=== PATIENT | male | born 1945 | race Caucasian/White ===

== ENCOUNTER 2022-09-10 10:54 | Outpatient (CLI) | payer MEDICARE, OTHER, SELFPAY ==
[2022-09-10 14:29] LABS: Chloride* 106 mmol/L (96-114); Sodium* 141 mmol/L (135-149)
[2022-09-10 14:30] LABS: Potassium* 4.6 mmol/L (3.6-5.1)
[2022-09-10 14:31] LABS: Cholesterol* 192 mg/dL (90-199)
[2022-09-10 14:32] LABS: Alanine Aminotransferase* 47 U/L (4-50); Alkaline Phosphatase* 176 U/L (40-150); Aspartate Amino Transferase* 46 U/L (12-35); Bilirubin Total* 0.6 mg/dL (0.1-1.5); Blood Urea Nitrogen* 22 mg/dL (7-30); Carbon Dioxide* 27 mmol/L (20-32); Creatinine* 1.2 mg/dL (0.5-1.5); Estimated Glomerular Filt Rate 63 ml/min; Glucose* 100 mg/dL (60-115); Total Protein* 7.6 g/dL (6.0-8.3); Triglycerides* 187 mg/dL (40-149)
[2022-09-10 14:33] LABS: Calcium* 9.1 mg/dL (8.4-10.6); HDL Cholesterol* 35 mg/dL (>=40); LDL Cholesterol Calculated 120 mg/dL (<100)
== END 2022-09-10 10:55 | disposition home or self-care (01) ==
PROVIDERS: PCP Internal Medicine; Visit Provider Internal Medicine
DX: I10 Essential (primary) hypertension (principal); Z12.5 Encounter for screening for malignant neoplasm of prostate; Z13.6 Encounter for screening for cardiovascular disorders
CPT/HCPCS: 80053; 80061; 84153

== ENCOUNTER 2022-12-23 15:14 | Outpatient (CLI) | payer MEDICARE, OTHER, SELFPAY | END 2022-12-23 15:15 | disposition home or self-care (01) | PROVIDERS: PCP Internal Medicine; Visit Provider Internal Medicine | DX: C61 Malignant neoplasm of prostate (principal) | CPT/HCPCS: 72195 ==

== ENCOUNTER 2022-12-24 14:57 | Outpatient (CLI) | payer MEDICARE, OTHER, SELFPAY ==
--- NOTE | 2022-12-24 15:00 | CRLHL7_ITS ---
For Patients: As a result of the Century Cures Act, medical imaging exams and procedure reports are released immediately into your electronic medical record. You may view this report before your referring provider. If you have questions, please contact your health care provider. DXA BONE MINERAL DENSITY STUDY Reason for exam: Primary Malignant Neoplasm Of Prostate Current height (in): 70. Weight (lb): 160. Ethnicity: White. 1. Have you had a previous hip or vertebral fracture? No. 2. Have you had any fractures during your adult life which did not result from significant trauma (e.g., auto accident)? No. 3. Did either of your parents have a hip fracture? Yes. 4. Do you smoke? No. 5. Have you ever taken Glucocorticoids? No. 6. Do you have rheumatoid arthritis? No. 7. Do you have secondary osteoporosis? No. 8. Do you drink 3 or more alcoholic drinks per day? No. 9. Are you being treated for osteoporosis? No. 10. Have you ever taken any of the following medications: Actonel, Evista, Fosamax, Miacalcin, Reclast, Boniva, Forteo, HRT (i.e. estrogen/hormone therapy), Protelos, Prolia, Vitamin D, Calcium, other ??? please specify. ANSWER: Yes, vitamin D, calcium. 11. Do you have any of the following medical conditions: Anorexia or bulimia, asthma or emphysema, end stage renal disease, hyperparathyroidism, any seizure disorders, cancer, inflammatory bowel diseases, hysterectomy, other ??? please specify. ANSWER: Yes, cancer. 12. What was your maximum height (inches)? 70. 13. Do you perform weight bearing exercise regularly? Yes. 14. Do you regularly consume dairy products? Yes. 15. Do you drink caffeinated beverages? Yes. TECHNIQUE: Bone mineral density study was performed using the [employer]. FINDINGS: The results of the study expressed as bone mineral density (BMD) are as follows: Lumbar spine L1 to L4: BMD: 1.007 g/cm2. T-score: -0.8. Z-score: 0.3. Neck Left: BMD: 0.709 g/cm2. T-score: -1.6. Z-score: -0.3. Right: BMD: 0.719 g/cm2. T-score: -1.5. Z-score: -0.2. Total Left: BMD: 0.883 g/cm2. T-score: -1.0. Z-score: -0.2. Right: BMD: 0.883 g/cm2. T-score: -1.0. Z-score: -02. IMPRESSION: Osteopenia. FRAX 10-year Fracture Risk Major Osteoporotic Fracture: 13 percent Hip Fracture: 8.2 percent Reported Risk Factors: [place] () Neck BMD=0.709, BMI=23.0, parental fracture Marcio Escamilla M.D. Diagnostic Radiologist [email or web address] EDUAR/Dictated by: Marcio Escamilla MD @ 12/25/2022 10:28:00 AM (Electronically Signed)
== END 2022-12-24 14:58 | disposition home or self-care (01) ==
LOC: RAD 14:57
PROVIDERS: PCP Internal Medicine; Visit Provider Nurse Practitioner
DX: C61 Malignant neoplasm of prostate (principal); M85.89 Other specified disorders of bone density and structure, multiple sites
CPT/HCPCS: 77080

== ENCOUNTER 2023-02-18 13:29 | Outpatient (CLI) | payer MEDICARE, OTHER, SELFPAY | END 2023-02-18 13:30 | disposition home or self-care (01) | LOC: NFLDREF 02-19 08:27 | PROVIDERS: PCP Internal Medicine; Referring Provider Internal Medicine; Visit Provider Internal Medicine | DX: Z51.81 Encounter for therapeutic drug level monitoring (principal); Z79.01 Long term (current) use of anticoagulants | CPT/HCPCS: 85610 ==

== ENCOUNTER 2023-04-13 14:00 | Outpatient (RCR) | payer MEDICARE, OTHER, SELFPAY ==
--- NOTE | 2022-12-16 08:35 | ONC.NURNOTE ---
DX: prostate cancer
--- NOTE | 2022-12-16 10:07 | URNOTE ---
Request received for authorization forNayeli ([id number]). Prior authorization is not required as services are based on medical necessity and follow Medicare guidelines.
--- NOTE | 2022-12-18 10:08 | ONC.PROVNOTE ---
[facility] Provider Note Clinic Note Narrative: Treatment Plan: Ethan Miner follows with Dr. Logan Borges at [facility] for medical management of high risk prostate cancer. Please refer to scanned office visit note 12/11/22 by Meggan Faith APRN, CNP, and Dr. Borges. I have entered treatment plan for ethan, with first dose of 7.5mg subQ to be administered in our clinic today on behalf of Dr. Borges and Meggan Faith per faxed order.
[2022-12-18] MEDS: LEUPROLIDE ACETATE 7.5 MG (SQ) SYRINGE SUBCUT (11:35)
[2022-12-18 14:08] VITALS: BP 176/89; PULSE 76; RESP 16; TEMP 36.3; O2SAT 97
[2023-01-16] MEDS: LEUPROLIDE ACETATE 22.5 MG (SQ) SYRINGE SUBCUT (13:52)
[2023-04-13 14:19] VITALS: BP 167/78; PULSE 69; RESP 16; TEMP 36.5; O2SAT 98
[2023-04-13] MEDS: LEUPROLIDE ACETATE 22.5 MG (SQ) SYRINGE SUBCUT (14:26)
[2023-04-13 15:20] LABS: PSA Diagnostic* < 0.06 ng/mL (0.10-4.00)
[2023-04-15 03:02] LABS: Testosterone, Adult Male 12 ng/dL (300-720)
== END 2023-06-16 23:59 | disposition home or self-care (01) ==
LOC: CCIC 14:00
PROVIDERS: PCP Internal Medicine; Referring Provider Internal Medicine; Visit Provider Internal Medicine
DX: C61 Malignant neoplasm of prostate (principal)
CPT/HCPCS: 36415; 84153; 84403; 96401; J9217

== ENCOUNTER 2023-08-25 08:51 | Outpatient (CLI) | payer MEDICARE, OTHER, SELFPAY | END 2023-08-25 08:52 | disposition home or self-care (01) | PROVIDERS: PCP Internal Medicine; Visit Provider Internal Medicine | DX: I10 Essential (primary) hypertension (principal); K62.5 Hemorrhage of anus and rectum | CPT/HCPCS: 80048; 85610 ==

== ENCOUNTER 2023-10-13 11:21 | Outpatient (CLI) | payer MEDICARE, OTHER, SELFPAY | END 2023-10-13 11:22 | disposition home or self-care (01) | LOC: NFLDREF 10-14 06:08 | PROVIDERS: PCP Internal Medicine; Referring Provider Internal Medicine; Visit Provider Internal Medicine | DX: Z51.81 Encounter for therapeutic drug level monitoring (principal); Z79.01 Long term (current) use of anticoagulants | CPT/HCPCS: 85610 ==

== ENCOUNTER 2023-11-16 15:32 | Outpatient (CLI) | payer MEDICARE, OTHER, SELFPAY | END 2023-11-16 15:33 | disposition home or self-care (01) | PROVIDERS: PCP Internal Medicine; Visit Provider Internal Medicine | DX: R53.1 Weakness (principal); Z12.5 Encounter for screening for malignant neoplasm of prostate; Z79.01 Long term (current) use of anticoagulants | CPT/HCPCS: 80053; 84153; 85610 ==

== ENCOUNTER 2023-11-23 10:56 | Outpatient (CLI) | payer MEDICARE, OTHER, SELFPAY | END 2023-11-23 10:57 | disposition home or self-care (01) | LOC: NFLDREF 10:58 | PROVIDERS: PCP Internal Medicine; Visit Provider Internal Medicine | DX: K62.5 Hemorrhage of anus and rectum (principal) | CPT/HCPCS: 85610 ==

== ENCOUNTER 2023-12-11 11:26 | Outpatient (CLI) | payer MEDICARE, OTHER, SELFPAY ==
--- NOTE | 2023-12-11 12:38 | W.ANESCHARGE ---
Anesthesia Charges Start Date/Time Anesthesia Start Date: 12/11/23 Anesthesia Start Time: 12:10 Stop Date/Time Anesthesia Stop Date: 12/11/23 Anesthesia Stop Time: 12:34
--- NOTE | 2023-12-11 12:49 | W.ANESCHARGE ---
Anesthesia Charges Start Date/Time Anesthesia Start Date: 12/11/23 Anesthesia Start Time: 12:10 Stop Date/Time Anesthesia Stop Date: 12/11/23 Anesthesia Stop Time: 12:34 Summary Extremes of Age - Over 70 or under 1: MDA
== END 2023-12-11 11:27 | disposition home or self-care (01) ==
LOC: OP CLINIC 11:27
PROVIDERS: PCP Internal Medicine; Visit Provider Internal Medicine
DX: K62.5 Hemorrhage of anus and rectum (principal); K63.5 Polyp of colon; K62.89 Other specified diseases of anus and rectum
CPT/HCPCS: 00811; 45380; 88305; 99100; J2704

== ENCOUNTER 2023-12-16 08:30 | Outpatient (RCR) | payer MEDICARE, OTHER, SELFPAY ==
[2023-07-06 13:33] VITALS: BP 144/84; PULSE 90; RESP 18; TEMP 36.6; O2SAT 96
[2023-07-06] MEDS: LEUPROLIDE ACETATE 22.5 MG (SQ) SYRINGE SUBCUT (13:47)
--- NOTE | 2023-07-06 14:00 | ONC.NURNOTE ---
Per patient, he will call to schedule Feb shot after upcoming Rad Onc appt.
[2023-09-29 13:24] VITALS: BP 153/77; PULSE 74; RESP 16; TEMP 36.1; O2SAT 95
[2023-09-29] MEDS: LEUPROLIDE ACETATE 22.5 MG (SQ) SYRINGE SUBCUT (13:39)
[2023-11-17 10:49] VITALS: BP 161/84; PULSE 74; RESP 16; TEMP 35.9; O2SAT 99
[2023-11-17] MEDS: 0.9 % SODIUM CHLORIDE 250 ml IV (12:30)
[2023-11-17 12:41] VITALS: BP 171/72; PULSE 70; RESP 16; TEMP 36.3; O2SAT 99
[2023-11-17 13:04] VITALS: BP 177/81; PULSE 71; RESP 16; TEMP 36.2; O2SAT 97
[2023-11-17 13:49] VITALS: BP 182/82; PULSE 65; RESP 16; TEMP 36.3; O2SAT 100
[2023-11-17 14:33] VITALS: BP 183/86; PULSE 67; RESP 18; TEMP 36.9; O2SAT 97
[2023-11-17 15:08] VITALS: BP 191/77; PULSE 70; RESP 16; TEMP 36.4; O2SAT 97
[2023-12-16 09:33] VITALS: BP 168/73; PULSE 76; RESP 16; TEMP 36.3; O2SAT 96
[2023-12-16 10:16] VITALS: BP 153/76; PULSE 70; RESP 16; TEMP 36.1; O2SAT 99
[2023-12-16 10:40] VITALS: BP 179/64; PULSE 67; RESP 16; TEMP 36.1; O2SAT 99
[2023-12-16 11:30] VITALS: BP 187/77; PULSE 66; RESP 16; TEMP 36.1; O2SAT 99
[2023-12-16 12:30] VITALS: BP 198/83; PULSE 67; RESP 20; TEMP 36.2; O2SAT 99
[2023-12-16 13:00] VITALS: BP 184/93; PULSE 63; RESP 16; TEMP 36.2; O2SAT 98
--- NOTE | 2023-12-16 13:35 | ONC.NURNOTE ---
Pt here for 1 unit of PRBC. Pt has received blood transfusion in the past without difficulty. Pt states he is not on any blood pressure meds, however, pre-blood transfusion BP 153/76, throughout infusion BP increasing up to 198/83. Pt denied headache, blurry vision. Left message with Dr. Brown stating increase in BP's during transfusion, wondering if any intervention is needed. BP 30 min after transfusion slightly improved and pt asymptomatic. Instructed pt to monitor BP at home and call Dr. Brown with concerns. Pt discharged alert and ambulatory.
== END 2024-01-02 23:59 | disposition home or self-care (01) ==
LOC: CCIC 08:30
PROVIDERS: PCP Internal Medicine; Referring Provider Internal Medicine; Visit Provider Internal Medicine
DX: C61 Malignant neoplasm of prostate (principal); K62.5 Hemorrhage of anus and rectum; K62.7 Radiation proctitis
CPT/HCPCS: 36415; 36430; 86850; 86900; 86901; 86922; 96401; J7050; J9217; P9016

== ENCOUNTER 2023-12-31 18:30 | Emergency (ER) | payer MEDICARE, OTHER, SELFPAY ==
[2023-12-31] VITALS (18 sets, daily range): BP systolic 122–170; BP diastolic 71–76; PULSE 65–90; RESP 16–18; TEMP 36.6; O2SAT 94–97; BMI 23.0
--- NOTE | 2023-12-31 18:44 | ED.GENADULT ---
HPI - General Adult General Date Seen: 12/31/23 Chief complaint: Abdominal Pain Stated complaint: pulled muscle left side Time Seen by Provider: 12/31/23 18:32 Source: patient, RN notes reviewed and old records reviewed Mode of arrival: ambulatory Limitations: no limitations History of Present Illness HPI narrative: Patient is a 78-year-old man who presents for evaluation of left lower quadrant pain which started late afternoon today. He says that he has a history of radiation proctitis and his abdominal wall muscles are ?no good, and he thought he maybe pulled a muscle when he was pushing a lawn more earlier today. However, he does not remember pulling a muscle, and does not really have pain with movement. Pain is constant, sharp and localized to the left lower quadrant. He has had some associated nausea, no vomiting. Denies diarrhea, black or bloody stools. No urinary symptoms. No history of similar pain previously. No prior abdominal surgeries, does have a history of prostate cancer and GI bleeding with recent colonoscopy. Had an adenoma removed at that time, no other significant findings. He tried some Tylenol at home, this did not really make any difference. 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 Denies tobacco alcohol use. Here tonight with his . Related Data Previous Rx's Medication Instructions Recorded warfarin 5 mg tablet 5 mg PO .COMPLEX #90 tabs 10/13/23 hydrocortisone acetate 25 mg 25 mg WY BID #24 ea 12/15/23 rectal suppository (Anusol-HC) Allergies Allergy/AdvReac Type Severity Reaction Status Date / Time rivaroxaban Allergy Severe increased Verified 12/31/23 20:44 liver enzymes, low back spasms Penicillins Allergy Mild Rash Verified 12/31/23 20:44 Review of Systems Status of ROS: Reports: 10 or more systems reviewed and unremarkable except as noted in History and below [facility] Medical History Radiation proctitis ?K62.7 - Radiation proctitis (ICD-10) Weakness ?R53.1 - Weakness (ICD-10) Rectal bleeding ?K62.5 - Hemorrhage of anus and rectum (ICD-10) Sebaceous cyst ?L72.3 - Sebaceous cyst (ICD-10) Sinusitis ?J32.9 - Chronic sinusitis, unspecified (ICD-10) Elevated PSA ?R97.20 - Elevated prostate specific antigen [PSA] (ICD-10) Screening due ?Z13.9 - Encounter for screening, unspecified (ICD-10) Hypertension ?I10 - Essential (primary) hypertension (ICD-10) Social History What is your current living situation?: I presently have a place to live Problems where you live: declined to answer In the past 12 months, utilities in danger of being shut off: no In past 12 months, lack of transportation kept you from medical appts, meetings, work, or getting things needed for daily living: no In the past 12 mos, have been you worried that your food would run out before you had money to buy more?: never true In the past 12 mos, the food you bought just didn't last and you didn't have money to buy more?: never true Smoking Status: Never smoker How often does anyone, including family, friends and others, physically hurt you: never How often does anyone, including family, friends and others, insult or talk down to you: never How often does anyone, including family, friends and others, threaten you with harm: never Little interest or pleasure in doing things: not at all Feeling down, depressed, or hopeless: not at all Exam Narrative: Exam Narrative: Vital signs as noted above. In general, an alert, nontoxic elderly male. Looks mildly uncomfortable. Head: Normocephalic, atraumatic. Eyes: Pupils are equal reactive. Extraocular movements are full. Conjunctivae are normal. ENT: Mucous membranes are moist. Throat is normal. Neck: Supple without lymphadenopathy. Heart: Regular rate and rhythm. No murmur or rub. Lungs: Clear bilaterally. No increased work of breathing, crackles or wheezes. No CVA tenderness. Abdomen: Soft and nondistended. Focal left lower quadrant tenderness without rebound guarding or rigidity. No inguinal tenderness or masses. Extremities: Well perfused. No edema. No calf tenderness. Pulses intact. Neurologic: Patient is alert and oriented to person and place. Speech is fluent. Face is symmetric. Moves all extremities equally. Affect: Normal. Skin: Warm and dry. Well perfused. Const: Vital Signs, click to edit/add: Vital Signs - 24 hr 12/31/23 18:34 12/31/23 19:04 12/31/23 19:15 Temperature 97.9 F Pulse Rate 74 70 Pulse Rate [Pulse Oximeter] 69 Respiratory Rate 16 Blood Pressure [Ri ght Upper Arm] 170/71 H Pulse Oximetry 96 97 96 Oxygen Delivery Ut thod Room Air 12/31/23 19:52 12/31/23 20:00 12/31/23 20:15 Temperature Pulse Rate 70 76 68 Pulse Rate [Pulse Oximeter] Respiratory Rate Blood Pressure [Ri ght Upper Arm] Pulse Oximetry 97 95 97 Oxygen Delivery Ut thod 12/31/23 20:38 12/31/23 20:45 12/31/23 21:00 Temperature Pulse Rate 82 76 76 Pulse Rate [Pulse Oximeter] Respiratory Rate Blood Pressure [Ri ght Upper Arm] Pulse Oximetry 96 94 94 Oxygen Delivery Ut thod 12/31/23 21:15 12/31/23 21:30 12/31/23 21:45 Temperature Pulse Rate 68 68 66 Pulse Rate [Pulse Oximeter] Respiratory Rate Blood Pressure [Ri ght Upper Arm] Pulse Oximetry 96 95 95 Oxygen Delivery Ut thod 12/31/23 22:25 12/31/23 22:30 12/31/23 22:45 Temperature Pulse Rate 66 66 65 Pulse Rate [Pulse Oximeter] Respiratory Rate Blood Pressure [Ri ght Upper Arm] Pulse Oximetry 95 94 94 Oxygen Delivery Ut thod 12/31/23 23:00 12/31/23 23:15 12/31/23 23:26 Temperature Pulse Rate 66 66 Pulse Rate [Pulse Oximeter] 90 Respiratory Rate 18 Blood Pressure [Ri ght Upper Arm] 122/76 Pulse Oximetry 96 95 97 [facility] Documenting provider has reviewed patient's vital signs: yes Course Course ED Course: Patient presents with left lower quadrant pain, he suspects possible muscle pull, but presentation is not entirely consistent with that. I recommended evaluation with lab including a urinalysis, depending on how UA looks, will decide on contrast versus noncontrast CT scan. Patient requests pain medication, ordering morphine 4 mg and Zofran 4 mg IV along with 500 mL of normal saline. Urinalysis was entirely negative, 0-2 red cells and 0-2 white cells. I ordered a CT scan with IV contrast. Labs were notable for hemoglobin of 8.6, he has had a baseline between 8 in 9 for quite some time. He did just have an episode blood per rectum which was evaluated. White blood cell count was normal at 10.5. Normal platelet count. His INR was 1.74 today, I have asked him to follow this up with his primary doctor. Metabolic panel is normal, lactate 1.1, CRP 0.8. CT scan read as follows by Radiology:FINDINGS: Diffuse hepatic steatosis. The gallbladder, spleen, pancreas, and adrenal glands are negative. No biliary dilation. Hepatic and portal veins are patent. Symmetric enhancement of the kidneys. Bilateral renal cysts. The largest cyst in the right lower pole measures 6.4 cm today compared to 5.3 cm previously. This cyst contains a thin internal septation similar to prior exam. Additional subcentimeter bilateral renal hypodensities are too small to characterize. No hydronephrosis or ureteral dilation. There is a 2 mm stone along the inner orifice of the right ureterovesicular junction without current evidence of obstruction (series 2, image 146). Small bilateral nonobstructing renal caliceal stones. No bladder wall thickening. Nonenlarged prostate gland with calcifications. There is a partially visualized inflammatory process in the lower left inguinal canal extending into the hemiscrotum with fluid, fat stranding, and prominent vessels (series 2 image 170 and series 4 image 38). There is a small fat containing left inguinal hernia above the area of inflammation. No bowel loop in the hernia. No small bowel dilation. Moderate amount of stool throughout the colon. Negative appendix. Trace free fluid in the pelvis. No intraperitoneal free air. No lymphadenopathy. Aortoiliac vascular calcifications. Patchy subcutaneous densities in the anterior abdominal wall may be related to injections. Bibasilar atelectasis or scarring. 5 mm noncalcified pulmonary nodule along the left major fissure not visualized previously (series 3, image 4). Follow-up per Fleischner society guidelines. Degenerative changes of the spine. No suspicious osseous lesions. IMPRESSION: 1. Partially visualized inflammatory process in the lower left inguinal canal and hemiscrotum with fluid, fat stranding, and enlarged vessels. There is a small fat containing left inguinal hernia above the area of inflammation. Consider further evaluation with scrotal ultrasound. 2. 2 mm stone along the inner orifice of the right UVJ without current evidence of obstruction. 3. Diffuse hepatic steatosis. I did go on to do a scrotal ultrasound, this is read as follows by Radiology:Findings: Right testicle measures 4.4 x 1.4 x 2.9 cm. Left testicle measures 3.9 x 2.4 x 2.7 cm. Normal arterial and venous color Doppler blood flow and spectral waveforms are present in both testicles. However, there is asymmetrically increased vascularity to the left testicular parenchyma. Right testicle is located within the right inguinal canal. Epididymis: Asymmetrically increased vascularity to the left epididymis. Other: No significant hydrocele. No varicocele is shown. There is a left inguinal hernia, which appears to contain fluid and vasculature, without bowel. Impression: 1. Asymmetrically increased vascularity to the left testicle and left epididymis, concerning for left epididymitis-orchitis. 2. Left inguinal hernia appears to contain fluid and vasculature. Vascular compromise to the herniated fat may be the etiology of the noted inflammatory changes. 3. Right testicle is located within the right inguinal canal. Re-examination at this time, he says he still has some left lower quadrant pain but over time has developed more testicular pain. He now has testicular tenderness, no significant erythema. Minimal tenderness in the inguinal canal. CT and ultrasound suggest an inguinal hernia but no bowel or evidence of strangulation or incarceration. At this time, I have recommended treatment with Cipro for presumed epididymitis/orchitis, fat containing hernia may be contributing to his symptoms as well. He is being seen late on . As a result, I have asked him to return to the emergency department for recheck if he is not improving at all over the next 1-2 days, as I think going into the weekend will be difficult to get any other kind of follow-up for him. If he worsens, develops more significant abdominal pain, vomiting, chills or fever, severe uncontrolled pain, he should return at any time. I gave him oxycodone 10 to use for severe uncontrolled pain, Tylenol 1000 mg 3 times daily. Vital Signs Vital signs: Initial Vital Signs Temperature 97.9 F 12/31/23 18:34 Temperature Source Temporal Artery Scan 12/31/23 18:34 Pulse Rate 69 12/31/23 18:34 Respiratory Rate 16 12/31/23 18:34 Blood Pressure 170/71 H 12/31/23 18:34 Blood Pressure Mean 104 12/31/23 18:34 Blood Pressure Position Sitting 12/31/23 18:34 Pulse Oximetry 96 12/31/23 18:34 Oxygen Delivery Method Room Air 12/31/23 18:34 Vital Signs Temperature 97.9 F 12/31/23 18:34 Pulse Rate 69 12/31/23 18:34 Respiratory Rate 16 12/31/23 18:34 Blood Pressure 170/71 H 12/31/23 18:34 Pulse Oximetry 96 12/31/23 18:34 Oxygen Delivery Method Room Air 12/31/23 18:34 Temperature 97.9 F 12/31/23 18:34 Pulse Rate 90 12/31/23 23:26 Respiratory Rate 18 12/31/23 23:26 Blood Pressure 122/76 12/31/23 23:26 Pulse Oximetry 97 12/31/23 23:26 Oxygen Delivery Method Room Air 12/31/23 23:26 Medications Administered Medications: Discontinued Medications Generic Name Dose Route Start Last Admin Trade Name Freq PRN Reason Stop Dose Admin Sodium Chloride 500 mls @ 500 mls/hr 12/31/23 18:43 12/31/23 19:52 0.9 % Sodium Chloride 500 Ml IV 12/31/23 19:42 Infused .Q1H ONE Infusion Morphine Sulfate 4 mg 12/31/23 18:43 12/31/23 19:14 Morphine 4 Mg/Ml Inj IVP 12/31/23 18:44 4 mg ONCE ONE Administration Ondansetron HCl 4 mg 12/31/23 18:43 12/31/23 19:14 Ondansetron 2 Mg/Ml Inj IVP 12/31/23 18:44 4 mg ONCE ONE Administration Medical Decision Making Lab Data Labs: Lab Results 12/31/23 12/31/23 Range/Units 18:55 19:33 WBC 10.48 (4.50-11.00) K/uL RBC 3.34 L (4.30-5.90) m/uL Hgb 8.6 L (13.5-17.5) gm/dL Hct 28.2 L (37.0-53.0) % MCV 84 (80-100) fL MCH 26 (26-34) pg MCHC 31 L (32-36) gm/dL RDW Coeff of Leeroy 15.4 (11.5-15.5) % Plt Count 392 (140-440) K/uL Neut % (Auto) 81.2 H (42.0-72.0) % Lymph % (Auto) 11.6 L (20-44) % Sunflower % (Auto) 5.9 (0.0-11.0) % Eos % (Auto) 0.7 (0.0-7.0) % Baso % (Auto) 0.4 (0.0-3.0) % Neut # (Auto) 8.50 H (1.7-7.0) K/uL Lymph # (Auto) 1.20 (0.90-2.90) K/uL Sunflower # (Auto) 0.60 (0.00-0.90) K/UL Eos # (Auto) 0.07 (0.00-0.50) K/uL Baso # (Auto) 0.04 (0.00-0.30) K/uL Abs Immat Gran (auto) 0.02 (0.00-0.30) K/uL Imm/Tot Granulo (auto) 0.2 % INR 1.74 H (0.91-1.10) Sodium 140 (135-149) mmol/L Potassium 3.9 (3.6-5.1) mmol/L Chloride 109 (96-114) mmol/L Carbon Dioxide 22 (20-32) mmol/L Anion Gap 9 (7-15) mEq/L BUN 28 (7-30) mg/dL Creatinine 1.4 (0.5-1.5) mg/dL Estimated Creat Clear 46.08 Estimated GFR 52 ml/min Glucose 96 (60-115) mg/dL Lactate 1.1 (0.5-1.9) mmol/L Calcium 8.8 (8.4-10.6) mg/dL C-Reactive Protein 0.8 (0.5-1.0) mg/dL Urine Color Yellow (Yellow) Urine Appearance Clear (Clear) Urine pH 5.5 (5.0-8.5) Ur Specific [place] 1.020 (1.000-1.030) Urine Protein Negative (Negative) Urine Glucose (UA) Negative (Negative) Urine Ketones Trace A (Negative) Urine Blood Trace-intact A (Negative) Urine Nitrite Negative (Negative) Urine Bilirubin Negative (Negative) Urine Urobilinogen 0.2 (0.2-1.0) Ur Leukocyte Esterase Negative (Negative) Urine RBC 0-2 (0-2) Urine WBC 0-2 (0-5) Ur Squamous Epith Cells Few (None-Few) Amorphous Sediment Moderate A (None) Urine Bacteria None (None) Discharge Plan Discharge Clinical Impression: Orchitis and epididymitis, Inguinal hernia Patient Disposition: Home, Self-Care Condition: Stable Instructions: Epididymo-Orchitis (ED), Inguinal Hernia (ED) Additional Instructions: Antibiotic as prescribed. Tylenol 1000 mg 3 times daily. Oxycodone 1/2-1 full tablet as needed for uncontrolled pain. Be aware this can cause dizziness, balance problems, constipation, and can be habit-forming. Take only as directed and discard any unused tablets. If your pain does not improve over the next 1-2 days I would recommend return to the ER for re-evaluation. For worsening symptoms, fevers, chills, vomiting, severe uncontrolled pain, return any time. Incidentally, please check with your primary care clinic, INR today is 1.74 which is somewhat subtherapeutic. Prescriptions: No Action hydrocortisone acetate [Anusol-HC] 25 mg suppository 25 mg WY BID Qty: 24 0RF warfarin 5 mg tablet 5 mg PO .COMPLEX Qty: 90 0RF Protocol: Dose Management Condition: Thursday Dose/Route: 2.5 mg Instruction: 0.5 x 5 mg tablets Condition: Thursday Dose/Route: 2.5 mg Instruction: 0.5 x 5 mg tablets Condition: Thursday Dose/Route: 2.5 mg Instruction: 0.5 x 5 mg tablets Condition: Thursday Dose/Route: 2.5 mg Instruction: 0.5 x 5 mg tablets Condition: Dose/Route: 2.5 mg Instruction: 0.5 x 5 mg tablets Condition: Thursday Dose/Route: 2.5 mg Instruction: 0.5 x 5 mg tablets Condition: Thursday Dose/Route: 2.5 mg Instruction: 0.5 x 5 mg tablets Protocol Text: Adjustment Start Date: Thursday11/24/23 INR Value: 3.29 INR Date: 11/23/23 Recheck Date: 12/08/23 Rx Instructions: Take one tablet on Thursday and Thursday, then 0.5 tablets on all other days; Follow Up/Referrals: Julio Brown MD [Primary Care Provider] - Stand Alone Forms: [facility] Info Instructions
--- OUTSIDE RECORDS SUMMARY | 2023-12-31 18:52 | XMS_ITS | Clinical Summary ---
Author Name Unknown Organization [facility] Address [place], [place] [address] Care Team Providers Care Compounding And Finishing Supervisor Name Role Phone Pcp, No Primary Care Provider Unavailabl e Allergies Active Allergy Reactions Criticality Noted Date Comments Penicillins Rash 07/08/2017 Medications Medication Sig Dispensed Refills Start Date End Date Status aspirin (ECOTRIN) 81 mg enteric coated tablet Take 1 tablet by mouth once daily with a meal. 0 07/08/2017 Active gemfibrozil (LOPID) 600 mg tablet Take 1 tablet by mouth once daily. 0 07/08/2017 Active warfarin (COUMADIN) 2.5 mg tablet Take 1 tablet by mouth once daily. 0 07/08/2017 Active tamsulosin (FLOMAX) 0.4 mg capsule Take 1 capsule by mouth once daily after a meal. 0 07/08/2017 Active Active Problems Problem Noted Date Diagnosed Date Gross hematuria 07/08/2017 Elevated PSA 07/08/2017 Encounters Date Type Department Care Team Description 12/11/2023 Lab Requisition [facility] [phone] Julio Brown MD from Last 3 Months Social History Tobacco Use Types Packs/Day Years Used Date Smoking Tobacco: Former Smokeless Tobacco: Never Sex and Gender Information Value Date Recorded Sex Assigned at Not on file Gender Identity Not on file Sexual Orientation Not on file Obstetrics History Last Filed Vital Signs Vital Sign Reading Time Taken Comments Blood Pressure 121/78 07/08/2017 9:42 AM 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 DIRECTOR Pulse 96 07/08/2017 9:42 AM BUSINESS ANALYTICS DIRECTOR Temperature - - Respiratory Rate - - Oxygen Saturation 98% 07/08/2017 9:42 AM BUSINESS ANALYTICS DIRECTOR Inhaled Oxygen Concentration - - Weight 75.3 kg (166 lb) 07/08/2017 9:42 AM BUSINESS ANALYTICS DIRECTOR Height - - Body Mass Index - - Plan of Treatment Health Maintenance Due Date Last Done Comments Tdap 11/17/1958 Depression screening for age 12+ 1959 BMI (ht and wt on same day) for age 18+ 11/17/1965 Hepatitis C screening for age 18-79 11/17/1965 Tetanus booster 1967 Zoster (shingles) series for age 50+ (1 of 2) 11/17/18 98 Pneumococcal series for age 65+ (1 of 1 - PCV) 013 COVID-19 vaccine series ( - season) 3 Influenza for age 65+ 04/24/2024 Procedures Procedure Name Priority Date/Time Associated Diagnosis Comments LAB TRACKING EVENT Routine 12/11/2023 12 :22 PM CDT PATH TISSUE EXAM Routine 12/11/2023 12:2 2 PM CDT from Last 3 Months Results * LAB TRACKING EVENT (12/11/2023 12:22 PM CDT) Other (Other) Client Collect / Unknown 12/11/2023 12:22 PM CDT 12/11/2023 8:52 PM CDT Julio Brown MD LAB BILL ONLY [facility] [address] [place] [address], * PATH TISSUE EXAM (12/11/2023 12:22 PM CDT) Case Report Pathology Report ?Case: [id number] ? Authorizing Provider: ??Julio Brown MD ?Collected: ? 12/11/2023 1222 ? Ordering Location: ? [facility] ?Received: ?12/11/20236 ? Pathologist: ? Carlos Gregory MD ? Specimens: ?? A) - Descending Colon Polyp ? B) - Colon Biopsy ? 12/14/2023 11:12 AM CDT [facility] Final Diagnosis A) COLON, DESCENDING, POLYPECTOMY: 1. Traditional serrated adenoma (see comment) 2. Negative for high grade dysplasia 3. Per the colonoscopy report: ?? a. Polyp size: 2 mm ?? b. Resection: Complete ?? c. Retrieval: Complete B) RECTUM, BIOPSY: 1. Colonic mucosa with no diagnostic abnormalities 2. Negative for microscopic, active, and chronic colitis 12/14/2023 11:12 AM CDT [facility] Comment A) Traditional serrated adenoma is an uncommon polyp in the serrated family of polyps that show dysplastic nuclear features throughout. The USMSTF guidelines recommend a 3-year interval for surveillance colonoscopy in patients with traditional serrated adenoma. This recommendation, however, is weak and based on very low-quality of evidence. A) Seen with Dr. Cortes. 12/14/2023 11:12 AM CDT [facility] Clinical Information Rectal bleeding. Colonoscopy showed a single polyp and erythematous, eroded, and inflamed mucosa in the rectum. 12/14/2023 11:12 AM CDT [facility] Gross Description A) Received in formalin is a vincent mucosal fragment measuring 5 mm in greatest dimension, which is entirely submitted in one cassette. It is labeled with the patient's name and designated colon-descendin g polyp. B) Received in formalin are 2 vincent mucosal fragments ranging from 2 mm to 6 mm in greatest dimension, which are entirely submitted in one cassette. It is labeled with the patient's name and designated colon-rectum. Katarzyna Mercer Parminder 12/11/2023 9:28 PM 12/14/2023 11:12 AM CDT [facility] Microscopic Description The final diagnosis is based on microscopic examination of appropriate sections of all specimens. 12/14/2023 11:12 AM CDT [facility] Additional Information Interpreted at [facility] - [address] [place] [address] [address] 12/14/2023 11:12 AM CDT [facility] Other (Descending Colon Polyp) 12/11/2023 12:22 PM CDT 12/11/2023 9:26 PM CDT Specimen (specimen) (Colon Biopsy) 12/11/2023 12:22 PM CDT 12/11/2023 9:26 PM CDT Julio Brown MD PATHOLOGY/CYTOLOGY Performing Organization Address City/State/[facility] Co de Phone Number [facility] [address] [place] [address], from Last 3 Months Care Teams Compounding And Finishing Supervisor Relationship Specialty Start Date End Date Pcp, No . PCP - General 07/08/17
--- OUTSIDE RECORDS SUMMARY | 2023-12-31 18:53 | XMS_ITS | Encounter Summary ---
Author Name Unknown Organization [facility] Address [address] [place] [address] Care Team Providers Care Electronic Imager Name Role Phone Unavailable Primary Care Provider Unavailabl e Encounter Details Date Type Department Care Team (Late st Contact Info) Description 10/05/2023 Clinical Communication Department of Radiation Oncology in [place], [place] [address] [place] [phone] Logan Borges M.D. [address] [place] [address] Social History Tobacco Use Types Packs/Day Years Used Date Smoking Tobacco: Former Cigarettes Pipe Smokeless Tobacco: Never Humiliation, Afraid, Rape, and Kick questionnair e Answer Date Recorded Within the last year, have y ou been afraid of your partner or ex-partner? No 01/18/2023 Within the last year, have y ou been humiliated or emotionally abused in other ways by your partner or ex-partner? No Within the last year, have y ou been kicked, hit, slapped, or otherwise physically hurt by your partner or ex-partner? No 01/18/2023 Within the last year, have y ou been raped or forced to have any kind of sexual activity by your partner or ex-partner? No 01/18/2023 Social Connection and Isolat ion Panel [NHANES] Answer Date Recorded In a typical week, how many times do you talk on the phone with family, friends, or neighbors? More than three times a week 10/14/2022 How often do you get togethe r with friends or relatives? More than three times a week 10/14/2022 How often do you attend chur ch or baptism services? More than 4 times per year 10/14/2022 Do you belong to any clubs o r organizations such as sikhism groups, unions, fraternal or athletic groups, or school groups? Yes 10/14/2022 How often do you attend meet ings of the clubs or organizations you belong to? More than 4 times per year 10/14/2022 Are you , , di vorced, , never , or living with a partner? 10/14/2022 AUDIT-C Answer Date Recorded Q1: How often do you have a drink containing alc ohol? 2-3 times a week 10/14/2022 Q2: How many drinks containi ng alcohol do you have on a typical day when you are drinking? 1 or 2 10/14/2022 Q3: How often do you have si x or more drinks on one occasion? Never 10/14/2022 Overall Financial Resource Strain (CARDIA) Answe r Date Recorded How hard is it for you to pa y for the very basics like food, housing, medical care, and heating? Not very hard 01/18/2023 [facility] Occupat ional Health - Occupational Stress Questionnaire Answer Date Recorded Do you feel stress - tense, restless, nervous, or anxious, or unable to sleep at night because your mind is troubled all the time - these days? Only a little 10/14/2022 Exercise Vital Sign Answer Date Recorde d On average, how many days pe r week do you engage in moderate to strenuous exercise (like a brisk walk)? 5 days 10/14/2022 On average, how many minutes do you engage in exercise at this level? 60 min 10/14/2022 Hunger Vital Sign Answer Date Recorded Within the past 12 months, y ou worried that your food would run out before you got the money to buy more. Never true 01/19/20 23 Within the past 12 months, t he food you bought just didn't last and you didn't have money to get more. Never true 01/18/2023 PRAPARE - Transportation Answer Date Re corded In the past 12 months, has l ack of transportation kept you from medical appointments or from getting medications? No 12/23 In the past 12 months, has l ack of transportation kept you from meetings, work, or from getting things needed for daily living? No 01/18/2023 Nutrition Answer Date Recorded On average, how many serving s of fruits and vegetables do you eat per day (serving size is equal to 1 cup or approximately the size of a tennis ball)? 0-1 10/14/2022 Dental Answer Date Recorded Dental: Regular Dentist Yes 10/14/19 Employment Answer Date Recorded Employment status Retired 10/14/2022 Housing Stability Answer Date Recorded What is your living situation today? I have a [facility] place to live 01/18/2023 Education Answer Date Recorded What is the highest level of school you have completed or the highest degree you have received? Bachelor's degree (e.g., BA, AB, BS) 10/14/2022 Sex and Gender Information Value Date Recorded Sex Assigned at Male 10/14/2022 1:13 PM MEDIA AID Gender Identity Male 10/14/2022 1:13 PM MEDIA AID Sexual Orientation Straight 10/14/2022 1: 13 PM MEDIA AID documented as of this encounter Plan of Treatment Not on file documented as of this encounter Visit Diagnoses Not on filedocumented in this encounter
--- OUTSIDE RECORDS SUMMARY | 2023-12-31 18:53 | XMS_ITS | Encounter Summary ---
Author Name Unknown Organization [facility] Address [address] [place] [address] Care Team Providers Care Counter Clerk [employer] Name Role Phone Unavailable Primary Care Provider Unavailabl e Reason for Visit * Reason Onset Date Comments Pre-visit Intake 12/16/2023 Encounter Details Date Type Department Care Team (Latest Contact Info) Description 12/16/2023 10:30 AM CDT Clinical Communication Virtual Review in [place], [place] [address] [place] [address] Pre-visit Intake Social History Tobacco Use Types Packs/Day Years Used Date Smoking Tobacco: Former Cigarettes Pipe Smokeless Tobacco: Never Tobacco Cessation:Counseling Given: Not Answered Humiliation, Afraid, Rape, and Kick questionnair e [...] 10/14/2022 How often do you attend chur or congregation services? More than 4 times per year 10/14/2022 Do you belong to any clubs o r organizations such as zoroastrianism groups, unions, fraternal or athletic groups, or [...] care, and heating? Not very hard 01/18/2023 [facility] Occupat ional Health - Occupational Stress [...] your living situation today? I have a [facility] place to live 01/18/2023 Education Answer Date Recorded What is the highest level of school you have completed or the highest degree you have received? Bachelor's degree (e.g., BA, AB, BS) 10/14/2022 Sex and Gender Information Value Date Recorded Sex Assigned at Male 10/14/2022 1:13 PM IMPLEMENTATION PROJECT MANAGER Gender Identity Male 10/14/2022 1:13 PM IMPLEMENTATION PROJECT MANAGER Sexual Orientation Straight 10/14/2022 1: 13 PM IMPLEMENTATION PROJECT MANAGER documented as of this encounter Plan of Treatment Not on file documented as of this encounter Visit Diagnoses Not on filedocumented in this encounter
--- OUTSIDE RECORDS SUMMARY | 2023-12-31 18:53 | XMS_ITS ---
Author Name Unknown Organization [facility] Address [address] [place] [address] Care Team Providers Care Mult Au Matic Operator Name Role Phone Unavailable Unavailable Unavailable Surgery Details Not on file Complications Check Surgery Details section. Procedure Estimated Blood Loss Check Surgery Details section. Procedure Findings Check Surgery Details section. Procedure Specimens Taken Check Surgery Details section.
--- OUTSIDE RECORDS SUMMARY | 2023-12-31 18:53 | XMS_ITS | Encounter Summary ---
Author Name Unknown Organization [facility] Address [address] [place] [id number] Care Team Providers Care Bread Wrapper Operator Name Role Phone Unavailable Primary Care Provider Unavailabl e Reason for Referral * Outpatient (Routine) - Authorized Specialty Diagnoses / Procedures Referred By Contac t Referred To Contact Radiation Oncology Meggan Faith APRN, C.N.P., D.N.P. [address] [place] [phone] Logan Borges M.D. [address] [place] [phone] Referral ID Status Reason Start Date Expiration Date V isits Requested Visits Authorized [id number] Authorized 12/18/2023 06/18/2025 1 1 Scheduling Instructions After PSA and Testosterone at [facility] * Outpatient (Routine) - Closed Specialty Diagnoses / Procedures Referred By Contac t Referred To Contact Radiation Oncology Maria Del Rosario Galeano P.A.-C., M.S. [address] [place] [phone] Logan Borges M.D. [address] [place] [phone] Referral ID Status Reason Start Date Expiration Date Visits Re quested Visits Authorized [id number] Closed 04/14/2023 04/13/2026 1 1 Scheduling Instructions PSA prior at [facility]. Please schedule PSA and follow-up visit to be done prior to patient's next leuprolide injection (should be approximately December 24, 2023). Please also make sure we have leuprolide injection records for Jun 2023 and Sep 2023. Reason for Visit * Outpatient (Routine) - Closed Specialty Diagnoses / Procedures Referred By Katy vergara Referred To Contact Radiation Oncology Maria Del Rosario Galeano P.A.-C., M.S. [address] [place] [phone] Logan Borges M.D. [address] [place] [phone] Referral ID Status Reason Start Date Expiration Date Visits Re quested Visits Authorized [id number] Closed 04/14/2023 04/13/2026 1 1 Encounter Details Date Type Department Care Team (Latest Contact Info) Description 12/18/2023 2:02 PM CDT - 12/18/2023 5:04 PM CDT Hospital Encounter Department of Radiation Oncology in [place], [place] [address] [place] [phone] Logan Borges M.D. [address] [place] [phone] Primary Malignant Neoplasm Of Prostate (HCC) (Primary Dx) Social History Tobacco Use Types Packs/Day Years [...] How often do you attend chur or mosque services? More than 4 times per year 10/14/2022 Do you belong to any clubs o r organizations such as confucianist groups, unions, fraternal or athletic groups, or [...] care, and heating? Not very hard 01/18/2023 [facility] Occupat ional [facility] - Occupational Stress [...] money to buy more. Never true 01/19/20 Within the past 12 months, t he [...] your living situation today? I have a [facility] place to live 01/18/2023 Education Answer Date Recorded What is the highest level of school you have completed or the highest degree you have received? Bachelor's degree (e.g., BA, AB, BS) 10/14/2022 Sex and Gender Information Value Date Recorded Sex Assigned at Male 10/14/2022 1:13 PM ELECTRONIC TEST TECHNICIAN Gender Identity Male 10/14/2022 1:13 PM ELECTRONIC TEST TECHNICIAN Sexual Orientation Straight 10/14/2022 1: 13 PM ELECTRONIC TEST TECHNICIAN documented as of this encounter Last Filed Vital Signs Vital Sign Reading Time Taken Comments Blood Pressure 166/90 12/18/2023 2:18 PM CDT Pulse 87 12/18/2023 2:18 PM CDT Temperature 35.7 ??C (96.3 ??F) 12/18/2023 2:18 PM CD T Respiratory Rate - - Oxygen Saturation - - Inhaled Oxygen Concentration - - Weight 76.3 kg (168 lb 3.4 oz) 12/18/2023 2:18 P M CDT Height - - Body Mass Index 24.77 06/28/2015 7:51 AM ELECTRONIC TEST TECHNICIAN documented in this encounter Medications at Time of Discharge Medication Sig Dispensed Refills Start Date End Date ascorbic acid (VITAMIN C ORAL) Take by mouth daily as needed. cholecalciferol (Vitamin D3) 125 mcg (5,000 Unit) tablet Take 1 tablet by mouth daily. LYSINE ORAL Take by mouth as needed (cold sore). warfarin (COUMADIN) 5 mg tablet Take 2.5 mg by mouth daily. 09/04/2022 documented as of this encounter Progress Notes * Meggan Faith APRN, C.N.P., D.N.P. - 12/18/2023 2:30 PM CDT SUBJECTIVE DIAGNOSIS 1. Primary Malignant Neoplasm Of Prostate (HCC) SUPERVISED BY: Logan Borges MD HISTORY OF PRESENT ILLNESS Mr. Manuel Miner is a 78 y.o. male with high risk prostate cancer. He was initiated on androgen deprivation therapy on December 18, 2022 for a planned 12-18 months. He completed definitive radiation therapy on February 05, 2023. He returns for follow up. His oncologic history is as follows: Oncology History Primary Malignant Neoplasm Of Prostate (HCC) 04/24/2015 Other 04/24/15: PSA 3.10 ng/mL 02/02/17: PSA 4.55 ng/mL 06/28/17: PSA 4.29 ng/mL 06/02/18: PSA 4.89 ng/mL 10/07/18: PSA 4.38 ng/mL 09/12/20: PSA 4.91 ng/mL 09/11/22: PSA 10.6 ng/mL 09/29/22: PSA 12.3 ng/mL 09/29/2022 Other Urology consultation with Dr. Drake Arzate. Digital rectal examination demonstrated that the prostate was approximately 40 g in size. The prostate was symmetrical, but slightly firm, which was widespread with no discrete nodules. Seminal vesicles were not palpable. 10/10/2022 Critical Imaging MR prostate demonstrated a prostate volume of 30 cc. There was a 2.1 cm lesion in the peripheral zone, left posterior lateral at mid gland, PI-RADS 5. Positive for capsular penetration. Neurovascularbundle invasion, seminal vesicle invasion, or other organ invasion was absent. Negative for suspicious lymph nodes. Negative for suspicious bone lesions. 11/12/2022 Biopsy/Pathology FINAL DIAGNOSIS A. Prostate, right biopsy: --- Prostate adenocarcinoma, Pascale's grade 3 + 4, grade group 2. --- Percentage of pattern 4 is 21 to 31%. --- Focal cribriform glands are present. --- Tumor is present on 2 of 6 cores involving approximately 20% of the specimen. --- Maximum submitted tumor length is 9 mm. --- There is no perineural invasion or extraprostatic extension. B. Prostate, left biopsy: --- Prostate adenocarcinoma, Pascale's grade 3 + 3, grade group 1. --- Tumor is present on 1 of 8 cores involving less than 5% of the specimen. --- Maximum submitted tumor length is 0.5 mm. 3 of 14 cores positive. 11/17/2022 Other Urology appointment with Laurie Miranda CNP who discussed treatment options including radiation therapy, surgical procedures, and androgen deprivation therapy. Referral to Radiation Oncology to further discuss treatment options and make plans for follow-up. 12/09/2022 Other PSA 10.3 ng/mL. Testosterone total 663 ng/dL. 12/09/2022 Critical Imaging PMSA PET/CT demonstrated known disease within left and right side of the prostate. No evidence of lymphadenopathy (mediastinal and bilateral hilar lymph nodes with mild uptake, most likely reactive/inflammatory). No evidence of osseous metastases. 12/18/2022 - Biological/Targeted/Hormone Therapy 12/18/2022: Leuprolide 7.5 mg 01/16/2023: Leuprolide 22.5 mg 04/13/2023: Leuprolide 22.5 mg 07/06/2023: Leuprolide 22.5 mg 09/29/2023: Leuprolide 22.5 mg 12/24/2022 Critical Imaging Bone density demonstrated osteopenia. Lumbar spine L1-L4: T-score -0.8 Neck: - Left: T-score -1.6 - Right: T-score -1.5 Total: - Left: T-score -1.0 - Right: T-score -1.0 Impression: Osteopenia Major osteoporotic fracture: 13% Hip fracture: 8.2% 12/31/2022 - 02/05/2023 Radiation Therapy Radiation Therapy Treatment Details (12/31/2022 - 02/05/2023) Site: Prostate Fractions: 26 Technique: IMRT Dose: 7020 cGy Goal: Curative 04/13/2023 Other 04/13/2023: PSA <0.06 ng/mL. Testosterone total 12 ng/L. 11/16/2023: PSA <0.06 ng/mL 12/14/2023: PSA <0.06 ng/mL 12/14/2023 Critical Imaging Colonoscopy findings: 1. The perianal and digital rectal exam was normal 2. A 2 mm polyp was found in the descending colon. Polyp was sessile. Polyp was removed with the cold biopsy forceps. Resection and retrieval were complete. 3. A localized area of moderately altered vascular, erythematous, eroded (linear pattern) and inflamed mucosa was found in the rectum. Biopsies were taken with a cold forceps for histology. Final diagnosis A) colon, descending, polypectomy 1. Traditional serrated adenoma 2. Negative for high-grade dysplasia B) rectum, biopsy: 1. Colonic mucosa with no diagnostic abnormality 2. Negative for microscopic, active, and chronic colitis INTERVAL HISTORY The patient was seen and examined today with Dr. Borges. The patient reports doing well overall. He continues experiencing ???foggy head and hot flashes while on hormone therapy. He does not enjoy feeling like his head is in a cloud all the time. He reports hot flashes are tolerable. He reports stable urination overall. He denies urinary frequency, urgency, hematuria, dysuria, leakage, strain, or sensation of incomplete emptying. He reports nocturia x3. He reports daily bowel movements without pain. He reports experiencing rectal bleeding since about September. He denies any constipation or pain with bowel movements that stemmed this. He has tried steroids prescribed by his primary care provider with temporary relief, but then the bleeding started up again. He underwent a colonoscopy last week at his primary care clinic. His primary care provider is planning on trialing suppositories next. He has received a 2 blood transfusions because of theblood loss. He denies new or persistent bone pain. His ECOG performance status is 0. PATIENT COMPLETED QUESTIONNAIRES: I-PSS I-PSS Urinary Symptoms Score: 7 I-PSS Quality of Life Score: 2 IIEF-15 Erectile Function:3/30 Orgasmic Function:0/10 Sexual Desire:3/10 Mullan Satisfaction: 0/15 Overall satisfaction:2/10 Total Score:8/75 REVIEW OF SYSTEMS Review of systems was negative except as documented above. PATIENT REPORTED SYMPTOM SCREEN FATIGUE (Scale: 0 = no fatigue; 10 = worst fatigue you can imagine): 4 PAIN (Scale: 0 = no pain; 10 = worst pain you can imagine): 0 OVERALL QUALITY OF LIFE (Scale: 0 = as bad as can be; 10 = as good as can be): 5 OBJECTIVE BP (!) 166/90 (BP Location: Left arm, Patient Position: Sitting, Cuff Size: Regular) Pulse 87 Temp (!) 35.7 ??C (Temporal) Wt 76.3 kg BMI 24.77 kg/m?? PHYSICAL EXAM General: Alert and oriented in no apparent distress. 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 He is experiencing stable urination following radiation treatment. 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 He did contact our department and we planned to move forward with a colonoscopy in [place] with APC but needed assistance from his primary care provider to help with warfarin bridging. His primary care provider recommended steroids, in which the patient wanted to pursue first. These temporarily resolved his bleeding symptoms, but it returned shortly after. He continued following with his primary care provider, Dr. Brown, who ordered for a colonoscopy. He underwent a colonoscopy at [facility] last week which demonstrated areas of radiation proctitis. A biopsy was taken which was negative for active or chronic colitis. Dr. Brown recommended proceeding with the suppositories to help control his rectal bleeding. The patient was unsure of the name of the suppository he wanted to use. After this discussion, I reviewed our recommendations in detail. We would recommend the patient obtain another colonoscopy with APC in [place]. I did explain that we would need Dr. Brown's assistance in bridging his warfarin. We also provided our recommended suppository regimen provided to us by our GI colleagues in [place]. He will take this information to Dr. Brown. The patient would like to try the suppositories before pursuing another colonoscopy. We will call the patient in 1 monthto evaluate his rectal bleeding and see if further management is needed with colonoscopy and APC. We reviewed his most recent PSA results of <0.06 ng/mL and discussed what this means in relationto his prostate cancer. He is tolerating ADT fairly with complaints of foggy head and hot flashes. He received a 22.5 mg leuprolide injection on September 29, 2023. With his most recent injection, he will have completed approximately 12 months of ADT. He has reached our minimum requirement and therefore would like to discontinue ADT. Dr. Borges is in agreement with this. His September injection will be his final injection with no further ADT. I counseled him on the importance of calcium and vitamin D-3 supplementation while he is on hormone therapy. We recommend 1200 mg calcium and 1000 international units vitamin D-3 daily. We will schedule a return visit here in 3 months with a PSA and testosterone level drawn a few daysprior at [facility], near the 1 year anniversary of his radiation treatment. Patient seen in collaboration with Dr. Borges, please review his attestation for additional information. He will contact us with questions or concerns. He verbally expressed his understanding of the plan. EDUCATION Ready to learn, no apparent learning barriers were identified; learning preferences include listening. Explained diagnosis and treatment plan; patient expressed understanding of the content. I personally spent 33 minutes in care of the patient today. Time includes both non face to face andface to face patient care. Signed by: Megagn Faith APRN, C.N.P., D.N.P. 12/18/2023 4:02 PM CDT [facility] [address] [place], [place] [id number] Associated Logan Rogel M.D. - 12/18/2023 5:03 PM CDT I saw and evaluated the patient and participated in the heredia portions of the service. I reviewed thedocumentation of Meggan Faith C.N.P. and agree with the findings and plan. Mr. Manuel Miner is a 78 y.o. 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 He was initiated on androgen deprivation therapy on December 18, 2022for a planned 12-18 months. He completed definitive radiation therapy on February 05, 2023. He returns in 10 month follow-up. Unfortunately, he developed rectal bleeding that was severe enough that he required a transfusion. Who was managed initially with steroids which had temporary benefit. His primary providers Dr. Brown who performed a colonoscopy on December 11, 2023 that revealed inflamed and eroded mucosa in the rectum. A biopsy was negative. There was also a 2 mm serrated adenoma removed from the descending colon. PSA on December 14, 2023 was <0.06 ng/mL. The patient appears well on exam. ASSESSMENT / PLAN #1 Stage IIIB (cT3a, cN0, cM0, PSA: 12.3, Grade Group: 2) adenocarcinoma of the prostate #2 History of PE and DVT due to factor V Leiden, on warfarin #3 Erectile dysfunction preceding radiotherapy #4 Occasional scant fecal incontinence, preceding radiotherapy #5 Androgen deprivation therapy initiated on December 18, 2022 with a leuprolide 7.5 mg injection; anticipated duration of 12-18 months #6 Osteopenia on bone density scan on December 24, 2022 #7 Radiotherapy to the prostate and proximal seminal vesicles initiated on December 31, 2022; completed on February 05, 2023 #8 Radiation proctitis seen on colonoscopy with negative biopsy on April 11, 2024 The patient is doing reasonably well now 10 months out from treatment completion; however, he does have radiation proctitis. Dr. Brown has prescribed suppositories. The patient is unaware of the name of the suppository. I explained that typically we would start with a colonoscopy in [place] with argon plasma coagulation given the severity of his bleeding requiring transfusion and his need forongoing warfarin. However, topical therapies are not unreasonable and are the patient's preference. Our typical regimen would be as follows: 1. Mesalamine suppository 1 g at bedtime for 4 weeks. 2. If no improvement within 2 weeks, increase to 1 mesalamine suppository in the morning and 1 at bedtime. 3. If no resolution, then switch to sucralfate enemas using 20 mL of 10% solution twice daily for 4-6 weeks. The patient's PSA is undetectable. He is completed 12 months of ADT. A radiographic diagnosis of T3a disease, so I think we can discontinue ADT now which is the patient's preference. We will repeat aPSA and testosterone in 3 months at [facility] and contact him with those results. 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 The patient verbalized satisfaction with this plan. I have spent 15 minutes caring for this patient including [id number] and heo-[id number]-face time. Signed by: Logan Borges M.D. 12/18/23 5:03 PM CDT [facility] [place] documented in this encounter Miscellaneous Notes * Addendum Note - Risa Cavazos C.NRadha - 12/18/2023 2:30 PM CDTEncounter addended by: Risa Cavazos C.N.AHortencia on: 12/21/2023 7:51 AM Actions taken: Letter saved documented in this encounter Plan of Treatment Scheduled Orders Name Type Priority Associated Diagnoses Orde r Schedule PSA (Prostate-Specific Antigen), Diagnostic Lab Routine Primary Malignant Neoplasm Of Prostate (HCC) Expected: 03/14/2024, Expires: 03/18/2025 Testosterone, Total by Mass Spectrometry, Serum Lab Routine Primary Malignant Neoplasm Of Prostate (HCC) Expected: 03/14/2024, Expires: 03/18/2025 Scheduled Referrals Name Type Priority Associated Diagnoses Order Schedule Radiation Oncology office visit (clinic) Outpatient Referral Routine Once for 1 Occurrences starting 12/18/2023 until 12/18/2023 Radiation Oncology office visit (clinic) Outpatient Referral Routine Expected: 03/18/2024, Expires: 03/18/2025 documented as of this encounter Visit Diagnoses Diagnosis Primary Malignant Neoplasm Of Prostate (HCC)- Primary documented in this encounter
--- OUTSIDE RECORDS SUMMARY | 2023-12-31 18:53 | XMS_ITS | Clinical Summary ---
Author Name Unknown Organization [facility] Address [address] [place] [address] Care Team Providers Care Electrical Appliance Repairer Name Role Phone Unavailable Primary Care Provider Unavailabl e Source Comments Patient records contain information from all sites at [facility]. For routine questions regarding patient records, call [phone] during business hours, M-F 8:00 AM - 5:00 PM Central Time. Record requests for emergency care only can be directed to [phone] at any time.[facility] Allergies Active Allergy Reactions Criticality Noted Date Comments Penicillins Rash 06/28/2015 Rivaroxaban Other (see comments) 06/28/2015 Liver damage Medications Medication Sig Dispensed Refills Start Date End Date Status warfarin (COUMADIN) 5 mg tablet Take 2.5 mg by mouth daily. 09/04/2022 Active ascorbic acid (VITAMIN C ORAL) Take by mouth daily as needed. Active LYSINE ORAL Take by mouth as needed (cold sore). Active bicalutamide (CASODEX) 50 mg tablet Take 1 tablet (50 mg total) by mouth daily for 21 days. Take at the same time everyday. Take with or without food. 21 tablet 12/11/2022 Active cholecalciferol (Vitamin D3) 125 mcg (5,000 Unit) tablet Take 1 tablet by mouth daily. Active aspirin 81 mg chewable tablet Chew 1 tablet daily. 06/28/2015 12/16/2023 Discontinued ergocalciferol, vitamin D2, (VITAMIN D2 ORAL) Take 1 tablet by mouth daily. 12/16/2023 Discontinued tamsulosin (FLOMAX) 0.4 mg 24 hr capsule Take 1 capsule (0.4 mg total) by mouth daily. 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 Primary Malignant Neoplasm Of Prostate (HCC) (Primary Dx) 12/16/2023 10:30 AM CDT Clinical Communication Virtual Review in [address] [phone] Pre-visit Intake 10/05/2023 Clinical Communication Department of Radiation Oncology in [address] [phone] Logan Borges M.D. from Last 3 Months Immunizations Name Administration Dates Next Due HepA Adult 03/03/1996 HepA, Unspecified 03/03/1996 IPV 03/03/1996 Influenza high dose QV(65 ye ars or older) (PF) 06/03/2022,06/27/2021,06/20/2020 OPV 03/03/1996 PCV13 09/03/2015 PPSV23 02/04/2017 Tdap 09/12/2020,10/22/2010 Tetanus Toxoid, Adsorbed (discontinued) 03/03/1996 influenza high dose (65 year s or older) (PF) 08/29/2019,06/02/2018,08/26/2017,2015,06/12/2015,06/14/2014 influenza vaccine quad (FLUZONE/FLUARIX) (6 months and older)(PF) 09/12/2020,08/29/2019,06/02/2018,2017,07/25/2016,06/12/2015,06/14/2014 Family History Medical History Relation Name Comments Prostate cancer Uncle Paternal Relation Name Status Comments Uncle Social History Tobacco Use Types Packs/Day Years [...] How often do you attend chur or presybeterian services? More than 4 times per year 10/14/2022 Do you belong to any clubs o r organizations such as shinto groups, unions, fraternal or athletic groups, or [...] care, and heating? Not very hard 01/18/2023 [facility] - Occupational Stress Questionnaire Answer Date Recorded [...] your living situation today? I have a [facility] place to live 01/18/2023 Education Answer Date Recorded What is the highest level of school you have completed or the highest degree you have received? Bachelor's degree (e.g., BA, AB, BS) 10/14/2022 Sex and Gender Information Value Date Recorded Sex Assigned at Male 10/14/2022 1:13 PM FLORIST MANAGER Gender Identity Male 10/14/2022 1:13 PM FLORIST MANAGER Sexual Orientation Straight 10/14/2022 1: 13 PM FLORIST MANAGER Last Filed Vital Signs Vital Sign Reading Time Taken Comments Blood Pressure 166/90 12/18/2023 2:18 PM CDT Pulse 87 12/18/2023 2:18 PM CDT Temperature 35.7 ??C (96.3 ??F) 12/18/2023 2:18 PM CD T Respiratory Rate - - Oxygen Saturation - - Inhaled Oxygen Concentration - - Weight 76.3 kg (168 lb 3.4 oz) 12/18/2023 2:18 P M CDT Height 175.5 cm (5' 9.09) 06/28/2015 7:51 AM CS T Body Mass Index 24.77 06/28/2015 7:51 AM FLORIST MANAGER Plan of Treatment Health Maintenance Due Date Last Done Comments Hepatitis C Screening 1945 Office Visit for Blood Pressure Check / Re-check 1945 Zoster Vaccines (1 of 2) 11/17/1966 Hepatitis A Vaccines (2 of 2 - Risk 2-dose series) 09/03/1996 03/03/1996, 03/03/1996 COVID-19 Vaccine (2022- season) 2023 09/04/2022, 06/27/2021, 11/20/2020, Additional history exists Depression Screening (Annual PHQ-2) 08/24/2023 Fall Risk Screen (Annual) 08/24/2023 DTaP,Tdap,and Td Vaccines (3 - Td or Tdap) 09/12/2030 09/12/2020, 10/22/2010 Pneumococcal vaccine (65+ years) Completed 02/04/2017, 09/03/2015 Influenza Vaccine Completed 07/20/2023, , 06/27/2021, Additional history exists HPV Vaccines Aged Out No longer eligi ble based on patient's age to complete this topic
--- OUTSIDE RECORDS SUMMARY | 2023-12-31 18:53 | XMS_ITS ---
Author Name Unknown Organization [facility] Address [address] [place] [address] Care Team Providers Care Paster Hat Lining Name Role Phone Unavailable Primary Care Provider Unavailabl e Active Problems Problem Noted Date Diagnosed Date [...] Urinary Tract Infection Site Not Specified 11/17 Current Oncology Plans No current plan information found. Past Plans Hem/Onc Therapy Plan 1 Plan Name Start Date Discontinue Date Treatment Medications Discontinue Reason Plan Provider Leuprolide Acetate Every 4 Weeks 12/11/2022 12/18/2023 No medications scheduled. Therapy Complete Logan Borges M.D. Hem/Onc Therapy Plan 2 Plan Name Start Date Discontinue Date Treatment Medications Discontinue Reason Plan Provider Leuprolide Acetate Every 12 Weeks 01/07/2023 12/18/2023 No medications scheduled. Therapy Complete Logan Borges M.D. Radiation Treatments * Plan Last Treated On Elapsed Days Fractions Treated Prescribed Fraction Dose Prescribed Total Dose [id number] 02/05/2023 36 270 cGy 7,020 cGy Reference Point Last Treated On Elapsed Days Session Dose Total Dose [id number] 02/05/2023 36 270 cGy 7,020 cGy
--- OUTSIDE RECORDS SUMMARY | 2023-12-31 18:53 | XMS_ITS | Referral Summary ---
Author Name Unknown Organization [facility] Address [address] [place] [address] Care Team Providers Care Home Sales Consultant Name Role Phone Unavailable Primary Care Provider Unavailabl e Source Comments Patient records contain information from all sites at [facility]. For routine questions regarding patient records, call [phone] during business hours, M-F 8:00 AM - 5:00 PM Central Time. Record requests for emergency care only can be directed to [phone] at any time.[facility] Encounters Date Type Department Care Team Description 12/18/2023 2:02 PM CDT - 12/18/2023 5:04 PM CDT Hospital Encounter Department of Radiation Oncology in [address] [address] Logan Borges M.D. Primary Malignant Neoplasm Of Prostate (HCC) (Primary Dx) 12/16/2023 10:30 AM CDT Clinical Communication Virtual Review in [address] [address] Pre-visit Intake 10/05/2023 Clinical Communication Department of Radiation Oncology in [address] [address] Logan Borges M.D. from Last 3 Months Allergies Active Allergy Reactions Criticality Noted Date [...] Urinary Tract Infection Site Not Specified 11/17 Immunizations Name Administration Dates Next Due HepA Adult 03/03/1996 HepA, Unspecified 03/03/1996 IPV 03/03/1996 Influenza high dose QV(65 ye ars or older) (PF) 06/03/2022,06/27/2021,06/20/2020 OPV 03/03/1996 PCV13 09/03/2015 PPSV23 02/04/2017 Tdap 09/12/2020,10/22/2010 Tetanus Toxoid, Adsorbed (discontinued) 03/03/1996 influenza high dose (65 year s or older) (PF) 08/29/2019,06/02/2018,08/26/2017,2015,06/12/2015,06/14/2014 influenza vaccine quad (FLUZONE/FLUARIX) (6 months and older)(PF) 09/12/2020,08/29/2019,06/02/2018,2017,07/25/2016,06/12/2015,06/14/2014 Social History Tobacco Use Types Packs/Day Years [...] week 10/14/2022 How often do you attend [facility] or bahai services? More than 4 times per year 10/14/2022 Do you belong to any clubs o r organizations such as rastafarian groups, unions, fraternal or athletic groups, or [...] care, and heating? Not very hard 01/18/2023 [facility] - Occupational Stress Questionnaire Answer Date [...] your living situation today? I have a [facility] place to live 01/18/2023 Education Answer Date Recorded What is the highest level of school you have completed or the highest degree you have received? Bachelor's degree (e.g., BA, AB, BS) 10/14/2022 Sex and Gender Information Value Date Recorded Sex Assigned at Male 10/14/2022 1:13 PM ROLL EDGE MACHINE OPERATOR Gender Identity Male 10/14/2022 1:13 PM ROLL EDGE MACHINE OPERATOR Sexual Orientation Straight 10/14/2022 1: 13 PM ROLL EDGE MACHINE OPERATOR Last Filed Vital Signs Vital Sign Reading [...] Body Mass Index 24.77 06/28/2015 7:51 AM ROLL EDGE MACHINE OPERATOR Plan of Treatment Not on file
[2023-12-31 19:02] LABS: Lactate Sepsis w/Reflex* 1.1 mmol/L (0.5-1.9)
[2023-12-31 19:13] LABS: Basophils Absolute Auto 0.04 K/uL (0.00-0.30); Basophils Percent Auto 0.4 % (0.0-3.0); Eosinophils Absolute Auto 0.07 K/uL (0.00-0.50); Eosinophils Percent Auto 0.7 % (0.0-7.0); Hematocrit 28.2 % (37.0-53.0); Hemoglobin* 8.6 gm/dL (13.5-17.5); Immature Granulocytes Abs Auto 0.02 K/uL (0.00-0.30); Immature Granulocytes Pct Auto 0.2 %; Lymphocytes Percent Auto 11.6 % (20-44); Mean Corpuscular HGB Conc 31 gm/dL (32-36); Mean Corpuscular Hemoglobin 26 pg (26-34); Mean Corpuscular Volume 84 fL (80-100); Monocytes Percent Auto 5.9 % (0.0-11.0); Neutrophils Percent Auto 81.2 % (42.0-72.0); Platelet Count* 392 K/uL (140-440); RDW Coefficient of Variation % 15.4 % (11.5-15.5); Red Blood Count 3.34 m/uL (4.30-5.90); White Blood Count* 10.48 K/uL (4.50-11.00)
[2023-12-31] MEDS: ONDANSETRON 2 MG/ML inj 4 MG IVP (19:14)
[2023-12-31] MEDS: 0.9 % SODIUM CHLORIDE 500 ML 500 ML IV (19:14)
[2023-12-31] MEDS: MORPHINE 4 MG/ML INJ IVP (19:14)
[2023-12-31 19:16] LABS: Chloride* 109 mmol/L (96-114); Slide Review Reflex No
[2023-12-31 19:17] LABS: Potassium* 3.9 mmol/L (3.6-5.1); Sodium* 140 mmol/L (135-149)
[2023-12-31 19:19] LABS: Creatinine* 1.4 mg/dL (0.5-1.5); Est. Creatinine Clearance* 46.08; Estimated Glomerular Filt Rate 52 ml/min
[2023-12-31 19:20] LABS: Anion Gap 9 mEq/L (7-15); Blood Urea Nitrogen* 28 mg/dL (7-30); Calcium* 8.8 mg/dL (8.4-10.6); Carbon Dioxide* 22 mmol/L (20-32); Glucose* 96 mg/dL (60-115); INR 1.74 (0.91-1.10); Prothrombin Time 21.6 Seconds
[2023-12-31 19:23] LABS: C Reactive Protein* 0.8 mg/dL (0.5-1.0)
[2023-12-31 19:40] LABS: Appearance Urine Clear (Clear); Bilirubin Urine Negative (Negative); Blood Urine Trace-intact (Negative); Color Urine Yellow (Yellow); Glucose Urine Negative (Negative); Ketones Urine Trace (Negative); Leukocyte Esterase Urine Negative (Negative); Nitrite Urine Negative (Negative); Protein Urine Negative (Negative); Urobilinogen Urine 0.2 (0.2-1.0); pH Urine 5.5 (5.0-8.5)
[2023-12-31 20:01] LABS: RBC Urine 0-2 (0-2); Squamous Epithelial Cell Urine Few (None-Few); WBC Urine 0-2 (0-5)
[2023-12-31 20:02] LABS: Amorphous Sediment Urine Moderate
--- NOTE | 2023-12-31 20:04 | CT_ITS ---
Patient: LEESA MEI Facility:?[facility] RIS Patient ID:?[id number] Site Patient ID:?[id number] Site :?[id number] Study:?CT-Abdomen/Pelvis W/ 79CC ISOVUE 370-12/31/2023 8:39:06 PM Ordering Physician:AUNG Final Report: INDICATION: Left lower quadrant pain. History of prostate cancer. TECHNIQUE: CT of the abdomen and pelvis acquired with 79 cc Isovue 370 IV contrast. Coronal and sagittal reconstructions. COMPARISON: CT of the abdomen and pelvis 04/14/2015. FINDINGS: Diffuse hepatic steatosis. The gallbladder, spleen, pancreas, and adrenal glands are negative. No biliary dilation. Hepatic and portal veins are patent. Symmetric enhancement of the kidneys. Bilateral renal cysts. The largest cyst in the right lower pole measures 6.4 cm today compared to 5.3 cm previously. This cyst contains a thin internal septation similar to prior exam. Additional subcentimeter bilateral renal hypodensities are too small to characterize. No hydronephrosis or ureteral dilation. There is a 2 mm stone along the inner orifice of the right ureterovesicular junction without current evidence of obstruction (series 2, image 146). Small bilateral nonobstructing renal caliceal stones. No bladder wall thickening. Nonenlarged prostate gland with calcifications. There is a partially visualized inflammatory process in the lower left inguinal canal extending into the hemiscrotum with fluid, fat stranding, and prominent vessels (series 2 image 170 and series 4 image 38). There is a small fat containing left inguinal hernia above the area of inflammation. No bowel loop in the hernia. No small bowel dilation. Moderate amount of stool throughout the colon. Negative appendix. Trace free fluid in the pelvis. No intraperitoneal free air. No lymphadenopathy. Aortoiliac vascular calcifications. Patchy subcutaneous densities in the anterior abdominal wall may be related to injections. Bibasilar atelectasis or scarring. 5 mm noncalcified pulmonary nodule along the left major fissure not visualized previously (series 3, image 4). Follow-up per Fleischner society guidelines. Degenerative changes of the spine. No suspicious osseous lesions. IMPRESSION: 1. Partially visualized inflammatory process in the lower left inguinal canal and hemiscrotum with fluid, fat stranding, and enlarged vessels. There is a small fat containing left inguinal hernia above the area of inflammation. Consider further evaluation with scrotal ultrasound. 2. 2 mm stone along the inner orifice of the right UVJ without current evidence of obstruction. 3. Diffuse hepatic steatosis. Please note that all CT scans at this facility use dose modulation, iterative reconstruction, and/or weight-based dosing when appropriate to reduce radiation dose to as low as reasonably achievable. Dictated by Sandy Miner MD @ 12/31/2023 9:05:07 PM Signed by:?Sandy Miner MD @12/31/2023 9:05:07 PM (Electronic Signature)
--- NOTE | 2023-12-31 21:26 | US_ITS ---
Patient: LEESA MEI Facility:?[facility] Patient ID:?[id number] Site Patient ID:?[id number] Site :?[id number] Study:?US-Testicle Bilateral -12/31/2023 10:29:58 PM Ordering Physician:SISSY SHORT Final Report: Indication: Left lower quadrant pain. Technique: Ultrasound of the scrotum and contents. Sonographic christian-scale images were obtained with spectral and color Doppler waveform and spectral waveform analysis of the testicles. Comparison: CT abdomen/pelvis earlier same day, dated 12/31/2023. Findings: Right testicle measures 4.4 x 1.4 x 2.9 cm. Left testicle measures 3.9 x 2.4 x 2.7 cm. Normal arterial and venous color Doppler blood flow and spectral waveforms are present in both testicles. However, there is asymmetrically increased vascularity to the left testicular parenchyma. Right testicle is located within the right inguinal canal. Epididymis: Asymmetrically increased vascularity to the left epididymis. Other: No significant hydrocele. No varicocele is shown. There is a left inguinal hernia, which appears to contain fluid and vasculature, without bowel. Impression: 1. Asymmetrically increased vascularity to the left testicle and left epididymis, concerning for left epididymitis-orchitis. 2. Left inguinal hernia appears to contain fluid and vasculature. Vascular compromise to the herniated fat may be the etiology of the noted inflammatory changes. 3. Right testicle is located within the right inguinal canal. Dictated by Enid Sevilla MD @ 12/31/2023 11:03:32 PM Signed by:?Enid Sevilla MD @12/31/2023 11:03:32 PM (Electronic Signature)
== END 2023-12-31 23:35 | disposition home or self-care (01) ==
PROVIDERS: Emergency Provider Emergency Medicine; PCP Internal Medicine
DX: N45.3 Epididymo-orchitis (principal); K40.90 Unilateral inguinal hernia, without obstruction or gangrene, not specified as recurrent
CPT/HCPCS: 36415; 74177; 76870; 80048; 81001; 83605; 85025; 85610; 86140; 93976; 94761; 96374; 96375; 99284; 99285; J2270; J2405; J7030; Q9967

== ENCOUNTER 2024-02-24 09:50 | Outpatient (CLI) | payer MEDICARE, OTHER, SELFPAY ==
--- OUTSIDE RECORDS SUMMARY | 2024-02-24 09:55 | XMS_ITS ---
Author Organization [facility] Address [address] [place] [address] Care Team Providers Care Media Center Director School Name Role Phone Unavailable Primary Care Provider [...] Treated Prescribed Fraction Dose Prescribed Total Dose [id number] 02/05/2023 36 270 cGy 7,020 cGy Reference Point Last Treated On Elapsed Days Session Dose Total Dose [id number] 02/05/2023 36 270 cGy 7,020 cGy
--- OUTSIDE RECORDS SUMMARY | 2024-02-24 09:55 | XMS_ITS | Referral Summary ---
Author Organization [facility] Address [address] [place] [address] Care Team Providers Care Shot Core Drill Operator Name Role Phone Unavailable Primary Care Provider Unavailabl e Source Comments Patient records contain information from all sites at [facility]. For routine questions regarding patient records, call [phone] during business hours, M-F 8:00 AM - 5:00 PM Central Time. Record requests for emergency care only can be directed to [phone] at any time.[facility] Encounters Date Type Department Care Team Description 01/20/2024 Clinical Communication Department of Radiation Oncology in [address] [phone] Meggan Faith APRN, C.N.P., D.N.P. 12/18/2023 2:02 PM CDT - 12/18/2023 5:04 PM CDT Hospital Encounter Department of Radiation Oncology in [address] [phone] Logan Borges M.D. Primary Malignant Neoplasm Of Prostate (HCC) (Primary Dx) 12/16/2023 10:30 AM CDT Clinical Communication Virtual Review in [place], [place] [address] [place] [address] Pre-visit Intake from Last 3 Months Allergies Active Allergy [...] Take 1 tablet by mouth daily. Active Active Problems Problem Noted Date Diagnosed [...] How often do you attend chur or gnosticism services? More than 4 times per year 10/14/2022 Do you belong to any clubs o r organizations such as voodoo groups, unions, fraternal or athletic groups, or [...] care, and heating? Not very hard 01/18/2023 [facility] of Occupat ional Health - Occupational Stress [...] your living situation today? I have a [facility] place to live 01/18/2023 Education Answer Date Recorded What is the highest level of school you have completed or the highest degree you have received? Bachelor's degree (e.g., BA, AB, BS) 10/14/2022 Sex and Gender Information Value Date Recorded Sex Assigned at Male 10/14/2022 1:13 PM AUTO PAINTER HELPER Gender Identity Male 10/14/2022 1:13 PM AUTO PAINTER HELPER Sexual Orientation Straight 10/14/2022 1: 13 PM AUTO PAINTER HELPER Last Filed Vital Signs Vital Sign Reading [...] Body Mass Index 24.77 06/28/2015 7:51 AM AUTO PAINTER HELPER Plan of Treatment Upcoming Encounters Date Type Department Care Team (Late st Contact Info) Description 03/23/2024 2:00 PM CDT Appointment Department of Radiation Oncology in [place], [place] [address] [place] [address] Logan Borges M.D. [address] [place] [address]
--- OUTSIDE RECORDS SUMMARY | 2024-02-24 09:55 | XMS_ITS | Clinical Summary ---
Author Organization [facility] Address [place], [place] [address] Care Team Providers Care Nurse Reviewer Name Role Phone Pcp, No Primary Care [...] Department Care Team Description 12/11/2023 Lab Requisition [facility] [phone] Julio Brown MD from Last 3 Months Social History Tobacco Use Types Packs/Day Years Used Date Smoking Tobacco: Former Smokeless Tobacco: Never Sex and Gender Information Value Date Recorded Sex Assigned at Not on file Gender Identity Not on file Sexual Orientation Not on file Obstetrics History Last Filed Vital Signs Vital Sign Reading Time Taken Comments Blood Pressure 121/78 07/08/2017 9:42 AM MEDICAL ECONOMICS CONSULTANT Pulse 96 07/08/2017 9:42 AM MEDICAL ECONOMICS CONSULTANT Temperature - - Respiratory Rate - - Oxygen Saturation 98% 07/08/2017 9:42 AM MEDICAL ECONOMICS CONSULTANT Inhaled Oxygen Concentration - - Weight 75.3 kg (166 lb) 07/08/2017 9:42 AM MEDICAL ECONOMICS CONSULTANT Height - - Body Mass Index - [...] CDT Julio Brown MD LAB BILL ONLY [facility] [address] [place] [address], * PATH TISSUE EXAM (12/11/2023 12:22 PM CDT) Case Report Pathology Report ?Case: [id number] ? Authorizing Provider: ??Julio Brown MD ?Collected: ? 12/11/2023 1222 ? Ordering Location: ? [facility] ?Received: ?12/11/2023 2126 ? Pathologist: ? Carlos Gregory MD ? Specimens: ?? A) - Descending Colon Polyp ? B) - Colon Biopsy ? 12/14/2023 11:12 AM CDT [facility] Final Diagnosis A) COLON, DESCENDING, POLYPECTOMY: 1. Traditional serrated adenoma (see comment) 2. Negative for high grade dysplasia 3. Per the colonoscopy report: ?? a. Polyp size: 2 mm ?? b. Resection: Complete ?? c. Retrieval: Complete B) RECTUM, BIOPSY: 1. Colonic mucosa with no diagnostic abnormalities 2. Negative for microscopic, active, and chronic colitis 12/14/2023 11:12 AM CDT [facility] Comment A) Traditional serrated adenoma is an uncommon polyp in the serrated family of polyps that show dysplastic nuclear features throughout. The USMSTF guidelines recommend a 3-year interval for surveillance colonoscopy in patients with traditional serrated adenoma. This recommendation, however, is weak and based on very low-quality of evidence. A) Seen with Dr. Cortes. 12/14/2023 11:12 AM CDT [facility] Clinical Information Rectal bleeding. Colonoscopy showed a single polyp and erythematous, eroded, and inflamed mucosa in the rectum. 12/14/2023 11:12 AM CDT [facility] Gross Description A) Received in [...] 12/11/2023 9:28 PM 12/14/2023 11:12 AM CDT [facility] Microscopic Description The final diagnosis is based on microscopic examination of appropriate sections of all specimens. 12/14/2023 11:12 AM CDT [facility] Additional Information Interpreted at [facility] - [address] [place] [address] [address] 12/14/2023 11:12 AM CDT [facility] Other (Descending Colon Polyp) 12/11/2023 12:22 PM CDT 12/11/2023 9:26 PM CDT Specimen (specimen) (Colon Biopsy) 12/11/2023 12:22 PM CDT 12/11/2023 9:26 PM CDT Julio Brown MD PATHOLOGY/CYTOLOGY Performing Organization Address City/State/[facility] Co de Phone Number [facility] [address] [place] [address], from Last 3 Months Care Teams Nurse Reviewer Relationship Specialty Start Date End Date Pcp, No . PCP - General 07/08/17
--- OUTSIDE RECORDS SUMMARY | 2024-02-24 09:55 | XMS_ITS | Encounter Summary ---
Author Organization [facility] Address [address] [place] [address] Care Team Providers Care Charting Clerk Name Role Phone Unavailable Primary Care Provider Unavailabl e Encounter Details Date Type Department Care Team (Late st Contact Info) Description 01/20/2024 Clinical Communication Department of Radiation Oncology in [place], [place] [address] [place] [phone] Meggan Faith, STEPHANIA, C.N.P., D.N.P. [address] [place] [phone] Social History Tobacco Use Types Packs/Day Years [...] often do you attend chur ch or muslim services? More than 4 times per year 10/14/2022 Do you belong to any clubs o r organizations such as yazdanism groups, unions, fraternal or athletic groups, or [...] care, and heating? Not very hard 01/18/2023 [facility] of Occupat ional Health - Occupational Stress [...] your living situation today? I have a [facility] place to live 01/18/2023 Education Answer Date Recorded What is the highest level of school you have completed or the highest degree you have received? Bachelor's degree (e.g., BA, AB, BS) 10/14/2022 Sex and Gender Information Value Date Recorded Sex Assigned at Male 10/14/2022 1:13 PM MANAGER TECHNOLOGY Gender Identity Male 10/14/2022 1:13 PM MANAGER TECHNOLOGY Sexual Orientation Straight 10/14/2022 1: 13 PM MANAGER TECHNOLOGY documented as of this encounter Miscellaneous Notes * Telephone Encounter - Meggan Faith APRN, C.N.P., D.N.P. - 01/20/2024 9:24 AM CDT I contacted Manuel to evaluate how his rectal bleeding was doing since our last visit about 1 month ago. He reports bleeding has stopped entirely, his last episode was about 1-1/2 weeks ago. He did utilize suppositories recommended by Dr. Brown, though he could not name this suppository during our conversation. His last use of the suppositories was about 1 week ago. As bleeding has subsided, he has tried to improve his activity level. At first increased activity level did cause Redemonstration of rectal bleeding, but that has subsided as well. He will continue following with Dr. Brown for any follow up care. I rediscussed the use of colonoscopy and argon plasma coagulation treatment ifthis were to recur again. Manuel mentioned that is in the back of his head. We discussed his upcoming follow up in late February along with PSA monitoring for his prostate cancer. We will plan to re-evaluate how his rectal bleeding is doing at that time and proceed with treatment as needed. He verbaliz ed understanding and agreement to the plan. I encouraged him to contact us sooner if bleeding recurs and he is wanting to move forward with argon plasma treatment documented in this encounter Plan of Treatment Upcoming Encounters Date Type Department Care Team (Late st Contact Info) Description 03/23/2024 2:00 PM CDT Appointment Department of Radiation Oncology in [place], [place] [address] [place] [address] Logan Borges M.D. [address] [place] [address] documented as of this encounter Visit Diagnoses Not on filedocumented in this encounter
--- OUTSIDE RECORDS SUMMARY | 2024-02-24 09:55 | XMS_ITS ---
Author Organization [facility] Address [address] [place] [address] Care Team Providers Care Automatic Clipper And Stripper Name Role Phone Unavailable Unavailable Unavailable Surgery Details Not on file Complications Check Surgery Details section. Procedure Estimated Blood Loss Check Surgery Details section. Procedure Findings Check Surgery Details section. Procedure Specimens Taken Check Surgery Details section.
--- OUTSIDE RECORDS SUMMARY | 2024-02-24 09:55 | XMS_ITS | Clinical Summary ---
Author Organization [facility] Address [address] [place] [address] Care Team Providers Care Proposal Specialist Name Role Phone Unavailable Primary Care Provider Unavailabl e Source Comments Patient records contain information from all sites at [facility]. For routine questions regarding patient records, call [phone] during business hours, M-F 8:00 AM - 5:00 PM Central Time. Record requests for emergency care only can be directed to [phone] at any time.[facility] Allergies Active Allergy Reactions Criticality Noted Date [...] Clinical Communication Department of Radiation Oncology in [address] [address] Meggan Faith APRN, C.N.P., D.N.P. 12/18/2023 2:02 PM CDT - 12/18/2023 5:04 PM CDT Hospital Encounter Department of Radiation Oncology in [address] [phone] Logan Borges M.D. Primary Malignant Neoplasm Of Prostate (HCC) (Primary Dx) 12/16/2023 10:30 AM CDT Clinical Communication Virtual Review in [address] [address] Pre-visit Intake from Last 3 Months Immunizations Name Administration [...] often do you attend chur ch or mormon services? More than 4 times per year [...] care, and heating? Not very hard 01/18/2023 [facility] of Occupat ional Health - Occupational Stress [...] your living situation today? I have a [facility] place to live 01/18/2023 Education Answer Date Recorded What is the highest level of school you have completed or the highest degree you have received? Bachelor's degree (e.g., BA, AB, BS) 10/14/2022 Sex and Gender Information Value Date Recorded Sex Assigned at Male 10/14/2022 1:13 PM MASTER OCEAN YACHT Gender Identity Male 10/14/2022 1:13 PM MASTER OCEAN YACHT Sexual Orientation Straight 10/14/2022 1: 13 PM MASTER OCEAN YACHT Last Filed Vital Signs Vital Sign Reading [...] Body Mass Index 24.77 06/28/2015 7:51 AM MASTER OCEAN YACHT Plan of Treatment Upcoming Encounters Date Type Department Care Team (Late st Contact Info) Description 03/23/2024 2:00 PM CDT Appointment Department of Radiation Oncology in [place], [place] [address] [place] [phone] Logan Borges M.D. [address] [place] [phone] Health Maintenance Due Date Last Done Comments Hepatitis C Screening 1945 Office Visit for Blood Pressure Check / Re-check 1945 Zoster Vaccines (1 of 2) 11/17/1966 COVID-19 Vaccine ( - 2022- season) 2023 09/04/2022, 06/27/2021, 11/20/2020, Additional history exists Depression Screening (Annual PHQ-2) 08/24/2023 Fall Risk Screen (Annual) 08/24/2023 Influenza Vaccine (#1) 2024 3, 06/03/2022, 06/27/2021, Additional history exists DTaP,Tdap,and Td Vaccines (3 - Td or Tdap) 09/12/2030 09/12/2020, 10/22/2010 Pneumococcal vaccine (65+ years) Completed 02/04/2017, 09/03/2015 HPV Vaccines Aged Out No longer eligi ble based on patient's age to complete this topic
--- OUTSIDE RECORDS SUMMARY | 2024-02-24 09:55 | XMS_ITS | Encounter Summary ---
Author Organization [facility] Address [address] [place] [address] Care Team Providers Care Shank Pinner Name Role Phone Unavailable Primary Care Provider Unavailabl e Reason for Visit * Reason Onset Date Comments Pre-visit Intake 12/16/2023 Encounter Details Date Type Department Care Team (Latest Contact Info) Description 12/16/2023 10:30 AM CDT Clinical Communication Virtual Review in [place], [place] [address] [place] [address] Pre-visit Intake Social History Tobacco Use Types [...] How often do you attend chur or yarsani services? More than 4 times per year 10/14/2022 Do you belong to any clubs o r organizations such as roman catholic groups, unions, fraternal or athletic groups, or [...] care, and heating? Not very hard 01/18/2023 [facility] [place] of Occupat ional Health - Occupational Stress [...] Sex Assigned at Male 10/14/2022 1:[address] AGENT Gender Identity Male 10/14/2022 1:[address] AGENT Sexual Orientation Straight 10/14/2022 1: [address] AGENT documented as of this encounter Plan of Treatment Upcoming Encounters Date Type Department Care Team (Late st Contact Info) Description 03/23/2024 2:00 PM CDT Appointment Department of Radiation Oncology in [place], [place] [address] [place] [address] Logan Borges M.D. [address] [place] [address] documented as of this encounter Visit Diagnoses Not on filedocumented in this encounter
--- OUTSIDE RECORDS SUMMARY | 2024-02-24 09:55 | XMS_ITS | Encounter Summary ---
Author Organization [facility] Address [address] [place] [address] Care Team Providers Care Financial Reporting Specialist Name Role Phone Unavailable Primary Care Provider Unavailabl e Reason for Referral * Outpatient (Routine) - Authorized Specialty Diagnoses / Procedures Referred By Contac t Referred To Contact Radiation Oncology Meggan Faith APRN, C.N.P., D.N.P. [address] [place] [phone] Logan Borges M.D. [address] [place] [phone] Referral ID Status Reason Start Date Expiration Date V isits Requested Visits Authorized [id number] Authorized 12/18/2023 06/18/2025 1 1 Scheduling Instructions After PSA and Testosterone at [facility] * Outpatient (Routine) - Closed Specialty Diagnoses / Procedures Referred By Contac t Referred To Contact Radiation Oncology Maria Del Rosario Galeano P.A.-C., M.S. [address] [place] [phone] Logan Borges M.D. [address] [place] [phone] Referral ID Status Reason Start Date Expiration Date Visits Re quested Visits Authorized [id number] Closed 04/14/2023 04/13/2026 1 1 Scheduling Instructions PSA prior at [facility]. Please schedule PSA and follow-up visit to [...] Maria Del Rosario Galeano P.A.-C., M.S. [address] [place] [phone] Logan Borges M.D. [address] [place] [phone] Referral ID Status Reason Start Date Expiration Date Visits Re quested Visits Authorized [id number] Closed 04/14/2023 04/13/2026 1 1 Encounter Details Date Type Department Care Team (Latest Contact Info) Description 12/18/2023 2:02 PM CDT - 12/18/2023 5:04 PM CDT Hospital Encounter Department of Radiation Oncology in [place], [place] [address] [place] [phone] Logan Borges M.D. [address] [place] [phone] Primary Malignant Neoplasm Of Prostate (HCC) [...] How often do you attend chur or sabianist services? More than 4 times per year 10/14/2022 Do you belong to any clubs o r organizations such as christian groups, unions, fraternal or athletic groups, or [...] care, and heating? Not very hard 01/18/2023 [facility] of Occupat ional Health - Occupational Stress [...] living situation today? I have a [facility] place to live 01/18/2023 Education Answer Date Recorded What is the highest level of school you have completed or the highest degree you have received? Bachelor's degree (e.g., BA, AB, BS) 10/14/2022 Sex and Gender Information Value Date Recorded Sex Assigned at Male 10/14/2022 1:13 PM ARBORIST CLIMBER Gender Identity Male 10/14/2022 1:13 PM ARBORIST CLIMBER Sexual Orientation Straight 10/14/2022 1: 13 PM ARBORIST CLIMBER documented as of this encounter Last Filed [...] Body Mass Index 24.77 06/28/2015 7:51 AM ARBORIST CLIMBER documented in this encounter Medications at Time [...] Borges MD HISTORY OF PRESENT ILLNESS Mr. Mnauel Miner is a 78 y.o. male with [...] IIEF-15 Erectile Function:3/30 Orgasmic Function:0/10 Sexual Desire:3/10 [place] Satisfaction: 0/15 Overall satisfaction:2/10 Total Score:8/75 REVIEW [...] to move forward with a colonoscopy in [place] with APC but needed assistance from his primary care provider to help with warfarin bridging. His primary care provider recommended steroids, in which the patient wanted to pursue first. These temporarily resolved his bleeding symptoms, but it returned shortly after. He continued following with his primary care provider, Dr. Brown, who ordered for a colonoscopy. He underwent a colonoscopy at [facility] last week which demonstrated areas of radiation [...] patient obtain another colonoscopy with APC in [place]. I did explain that we would need Dr. Brown's assistance in bridging his warfarin. We also provided our recommended suppository regimen provided to us by our GI colleagues in [place]. He will take this information to Dr. [...] testosterone level drawn a few daysprior at [facility], near the 1 year anniversary of his [...] andface to face patient care. Signed by: Meggan Faith APRN, C.N.P., D.N.P. 12/18/2023 4:02 PM CDT [facility] [address] [place] [address] Associated attestation - Logan Borges M.D. - 12/18/2023 5:03 PM CDT I [...] we would start with a colonoscopy in [place] with argon plasma coagulation given the severity [...] aPSA and testosterone in 3 months at [facility] and contact him with those results. 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 The patient verbalized satisfaction with this plan. I have spent 15 minutes caring for this patient including lprx-cr-zjeb and fkg-bsks-kx-face time. Signed by: Logan Borges M.D. 12/18/23 5:03 PM CDT [facility] [place] documented in this encounter Miscellaneous Notes * Addendum Note - Risa Cavazos C.NHortenciaAHortencia - 12/18/2023 2:30 PM CDTEncounter addended by: Risa Cavazos C.N.A. on: 12/21/2023 7:51 AM Actions taken: Letter saved documented in this encounter Plan of Treatment Upcoming Encounters Date Type Department Care Team (Late st Contact Info) Description 03/23/2024 2:00 PM CDT Appointment Department of Radiation Oncology in [place], [place] [address] [place] [address] Logan Borges M.D. [address] [place] [address] Scheduled Orders Name Type Priority Associated Diagnoses [...]
== END 2024-02-24 09:51 | disposition home or self-care (01) ==
PROVIDERS: PCP Internal Medicine; Visit Provider Internal Medicine
DX: K62.5 Hemorrhage of anus and rectum (principal)
CPT/HCPCS: 80053; 85610

== ENCOUNTER 2024-03-10 08:26 | Outpatient (CLI) | payer MEDICARE, OTHER, SELFPAY ==
--- OUTSIDE RECORDS SUMMARY | 2024-03-10 08:30 | XMS_ITS | Encounter Summary ---
Author Organization [facility] Address [address] [place] [address] Care Team Providers Care Interior Paneler Name Role Phone Unavailable Primary Care Provider Unavailabl e Encounter Details Date Type Department Care Team (Late st Contact Info) Description 01/20/2024 Clinical Communication Department of Radiation Oncology in [place], [place] [address] [place] [phone] Meggan Faith, STEPHANIA, C.N.P., D.N.P. [address] [place] [phone] Social History Tobacco Use Types Packs/Day Years [...] often do you attend chur ch or roman catholic services? More than 4 times per year 10/14/2022 Do you belong to any clubs o r organizations such as scientologist groups, unions, fraternal or athletic groups, or [...] care, and heating? Not very hard 01/18/2023 [facility] of Occupat ional Health - Occupational [...] your living situation today? I have a [facility] place to live 01/18/2023 Education Answer Date Recorded What is the highest level of school you have completed or the highest degree you have received? Bachelor's degree (e.g., BA, AB, BS) 10/14/2022 Sex and Gender Information Value Date Recorded Sex Assigned at Male 10/14/2022 1:13 PM GUTTER HANGER Gender Identity Male 10/14/2022 1:13 PM GUTTER HANGER Sexual Orientation Straight 10/14/2022 1: 13 PM GUTTER HANGER documented as of this encounter Miscellaneous Notes [...] CDT Appointment Department of Radiation Oncology in [place], [place] [address] [place] [address] Logan Borges M.D. [address] [place] [address] documented as of this encounter Visit Diagnoses Not on filedocumented in this encounter
--- OUTSIDE RECORDS SUMMARY | 2024-03-10 08:30 | XMS_ITS | Encounter Summary ---
Author Organization [facility] Address [address] [place] [address] Care Team Providers Care Foam Rubber Curer Name Role Phone Unavailable Primary Care Provider Unavailabl e Reason for Referral * Outpatient (Routine) - Authorized Specialty Diagnoses / Procedures Referred By Contac t Referred To Contact Radiation Oncology Meggan Faith APRN, C.N.P., D.N.P. [address] [place] [phone] Logan Borges M.D. [address] [place] [phone] Referral ID Status Reason Start Date Expiration Date V isits Requested Visits Authorized [id number] Authorized 12/18/2023 06/18/2025 1 1 Scheduling Instructions After PSA and Testosterone at [facility] * Outpatient (Routine) - Closed Specialty Diagnoses / Procedures Referred By Contac t Referred To Contact Radiation Oncology Maria Del Rosario Galeano P.A.-C., M.S. [address] [place] [phone] Logan Borges M.D. [address] [place] [phone] Referral ID Status Reason Start Date Expiration Date Visits Re quested Visits Authorized [id number] Closed 04/14/2023 04/13/2026 1 1 Scheduling Instructions PSA prior at [facility]. Please schedule PSA and follow-up visit [...] Maria Del Rosario Galeano P.A.-C., M.S. [address] [place] [phone] Logan Borges M.D. [address] [place] [phone] Referral ID Status Reason Start Date Expiration Date Visits Re quested Visits Authorized [id number] Closed 04/14/2023 04/13/2026 1 1 Encounter Details Date Type Department Care Team (Latest Contact Info) Description 12/18/2023 2:02 PM CDT - 12/18/2023 5:04 PM CDT Hospital Encounter Department of Radiation Oncology in [place], [place] [address] [place] [phone] Logan Borges M.D. [address] [place] [phone] Primary Malignant Neoplasm Of Prostate (HCC) [...] How often do you attend chur or latter day services? More than 4 times per year 10/14/2022 Do you belong to any clubs o r organizations such as judaism groups, unions, fraternal or athletic groups, or [...] care, and heating? Not very hard 01/18/2023 [facility] of Occupat ional Health - Occupational Stress [...] your living situation today? I have a [facility] place to live 01/18/2023 Education Answer Date Recorded What is the highest level of school you have completed or the highest degree you have received? Bachelor's degree (e.g., BA, AB, BS) 10/14/2022 Sex and Gender Information Value Date Recorded Sex Assigned at Male 10/14/2022 1:13 PM CLASSICS TEACHER Gender Identity Male 10/14/2022 1:13 PM CLASSICS TEACHER Sexual Orientation Straight 10/14/2022 1: 13 PM CLASSICS TEACHER documented as of this encounter Last Filed [...] Body Mass Index 24.77 06/28/2015 7:51 AM CLASSICS TEACHER documented in this encounter Medications at Time [...] IIEF-15 Erectile Function:3/30 Orgasmic Function:0/10 Sexual Desire:3/10 [place] Satisfaction: 0/15 Overall satisfaction:2/10 Total Score:8/75 REVIEW [...] to move forward with a colonoscopy in [place] with APC but needed assistance from his primary care provider to help with warfarin bridging. His primary care provider recommended steroids, in which the patient wanted to pursue first. These temporarily resolved his bleeding symptoms, but it returned shortly after. He continued following with his primary care provider, Dr. Brown, who ordered for a colonoscopy. He underwent a colonoscopy at [facility] last week which demonstrated areas of [...] patient obtain another colonoscopy with APC in [place]. I did explain that we would need Dr. Brown's assistance in bridging his warfarin. We also provided our recommended suppository regimen provided to us by our GI colleagues in [place]. He will take this information to Dr. [...] testosterone level drawn a few daysprior at [facility], near the 1 year anniversary of [...] APRN, C.N.P., D.N.P. 12/18/2023 4:02 PM CDT [facility] [address] [place] [address] Associated attestation - Logan Borges M.D. - [...] we would start with a colonoscopy in [place] with argon plasma coagulation given the severity [...] aPSA and testosterone in 3 months at [facility] and contact him with those results. 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 The patient verbalized satisfaction with this plan. I have spent 15 minutes caring for this patient including cysy-eg-jhca and rcg-wzwk-ru-face time. Signed by: Logan Borges M.D. 12/18/23 5:03 PM CDT [facility] [place] documented in this encounter Miscellaneous Notes * Addendum Note - Risa Cavazos C.NHortenciaAHortencia - 12/18/2023 2:30 PM CDTEncounter addended by: Risa Cavazos C.N.A. on: 12/21/2023 7:51 AM Actions taken: Letter saved documented in this encounter Plan of Treatment Upcoming Encounters Date Type Department Care Team (Late st Contact Info) Description 03/23/2024 2:00 PM CDT Appointment Department of Radiation Oncology in [place], [place] [address] [place] [address] Logan Borges M.D. [address] [place] [address] Scheduled Orders Name Type Priority Associated Diagnoses [...]
--- OUTSIDE RECORDS SUMMARY | 2024-03-10 08:30 | XMS_ITS | Clinical Summary ---
Author Organization [facility] Address [address] [place] [address] Care Team Providers Care Silk Spotter Name Role Phone Unavailable Primary Care Provider Unavailabl e Source Comments Patient records contain information from all sites at [facility]. For routine questions regarding patient records, call [phone] during business hours, M-F 8:00 AM - 5:00 PM Central Time. Record requests for emergency care only can be directed to [phone] at any time.[facility] Allergies Active Allergy Reactions Criticality Noted [...] Clinical Communication Department of Radiation Oncology in [address] [phone] Meggan Faith APRN, C.N.P., D.N.P. 12/18/2023 2:02 PM CDT - 12/18/2023 5:04 PM CDT Hospital Encounter Department of Radiation Oncology in [address] [phone] Logan Borges M.D. Primary Malignant Neoplasm Of Prostate (HCC) (Primary Dx) 12/16/2023 10:30 AM CDT Clinical Communication Virtual Review in [address] [phone] Pre-visit Intake from Last 3 Months Immunizations [...] often do you attend chur ch or yarsani services? More than 4 times per year 10/14/2022 Do you belong to any clubs o r organizations such as religion groups, unions, fraternal or athletic groups, or [...] care, and heating? Not very hard 01/18/2023 [facility] of Occupat ional Health - Occupational Stress [...] living situation today? I have a [facility] place to live 01/18/2023 Education Answer Date Recorded What is the highest level of school you have completed or the highest degree you have received? Bachelor's degree (e.g., BA, AB, BS) 10/14/2022 Sex and Gender Information Value Date Recorded Sex Assigned at Male 10/14/2022 1:13 PM COMPOSITE SCIENCE TEACHER Gender Identity Male 10/14/2022 1:13 PM COMPOSITE SCIENCE TEACHER Sexual Orientation Straight 10/14/2022 1: 13 PM COMPOSITE SCIENCE TEACHER Last Filed Vital Signs Vital Sign Reading [...] Body Mass Index 24.77 06/28/2015 7:51 AM COMPOSITE SCIENCE TEACHER Plan of Treatment Upcoming Encounters Date Type Department Care Team (Late st Contact Info) Description 03/23/2024 2:00 PM CDT Appointment Department of Radiation Oncology in [place], [place] [address] [place] [phone] Logan Borges M.D. [address] [place] [phone] Health Maintenance Due Date Last Done Comments [...]
--- OUTSIDE RECORDS SUMMARY | 2024-03-10 08:30 | XMS_ITS | Clinical Summary ---
Author Organization [employer] [facility] Address [place], [place] [address] Care Team Providers Care Irish Moss Bleacher Name Role Phone Pcp, No Primary Care [...] Department Care Team Description 12/11/2023 Lab Requisition [facility] [phone] Julio Brown MD from Last 3 Months Social History Tobacco Use Types Packs/Day Years Used Date Smoking Tobacco: Former Smokeless Tobacco: Never Sex and Gender Information Value Date Recorded Sex Assigned at Not on file Gender Identity Not on file Sexual Orientation Not on file Obstetrics History Last Filed Vital Signs Vital Sign Reading Time Taken Comments Blood Pressure 121/78 07/08/2017 9:42 AM MDS COORDINATOR Pulse 96 07/08/2017 9:42 AM MDS COORDINATOR Temperature - - Respiratory Rate - - Oxygen Saturation 98% 07/08/2017 9:42 AM MDS COORDINATOR Inhaled Oxygen Concentration - - Weight 75.3 kg (166 lb) 07/08/2017 9:42 AM MDS COORDINATOR Height - - Body Mass Index - [...] CDT Julio Brown MD LAB BILL ONLY [facility] [address] [place] [address], * PATH TISSUE EXAM (12/11/2023 12:22 PM CDT) Case Report Pathology Report ?Case: [id number] ? Authorizing Provider: ??Julio Brown MD ?Collected: ? 12/11/2023 1222 ? Ordering Location: ? [facility] ?Received: ?12/11/2023 2126 ? Pathologist: ? Carlos Gregory MD ? Specimens: ?? A) - Descending Colon Polyp ? B) - Colon Biopsy ? 12/14/2023 11:12 AM CDT [facility] Final Diagnosis A) COLON, DESCENDING, POLYPECTOMY: 1. Traditional serrated adenoma (see comment) 2. Negative for high grade dysplasia 3. Per the colonoscopy report: ?? a. Polyp size: 2 mm ?? b. Resection: Complete ?? c. Retrieval: Complete B) RECTUM, BIOPSY: 1. Colonic mucosa with no diagnostic abnormalities 2. Negative for microscopic, active, and chronic colitis 12/14/2023 11:12 AM CDT [facility] Comment A) Traditional serrated adenoma is an uncommon polyp in the serrated family of polyps that show dysplastic nuclear features throughout. The USMSTF guidelines recommend a 3-year interval for surveillance colonoscopy in patients with traditional serrated adenoma. This recommendation, however, is weak and based on very low-quality of evidence. A) Seen with Dr. Cortes. 12/14/2023 11:12 AM CDT [facility] Clinical Information Rectal bleeding. Colonoscopy showed a single polyp and erythematous, eroded, and inflamed mucosa in the rectum. 12/14/2023 11:12 AM CDT [facility] Gross Description A) Received in [...] 12/11/2023 9:28 PM 12/14/2023 11:[address] [facility] Microscopic Description The final diagnosis is based on microscopic examination of appropriate sections of all specimens. 12/14/2023 11:[address] [facility] Additional Information Interpreted at [facility] - [address] [place] [address] [address] 12/14/2023 11:[address] [facility] Other (Descending Colon Polyp) 12/11/2023 12:22 PM CDT 12/11/2023 9:26 PM CDT Specimen (specimen) (Colon Biopsy) 12/11/2023 12:22 PM CDT 12/11/2023 9:26 PM CDT Julio Brown MD PATHOLOGY/CYTOLOGY Performing Organization Address City/State/[facility] Co de Phone Number [facility] [address] [place] [address], from Last 3 Months Care Teams Irish Moss Bleacher Relationship Specialty Start Date End Date Pcp, No . PCP - General 07/08/17
--- OUTSIDE RECORDS SUMMARY | 2024-03-10 08:30 | XMS_ITS ---
Author Organization [facility] Address [address] [place] [address] Care Team Providers Care Peer Counselor Name Role Phone Unavailable Unavailable Unavailable Surgery Details Not on file Complications Check Surgery Details section. Procedure Estimated Blood Loss Check Surgery Details section. Procedure Findings Check Surgery Details section. Procedure Specimens Taken Check Surgery Details section.
--- OUTSIDE RECORDS SUMMARY | 2024-03-10 08:30 | XMS_ITS | Encounter Summary ---
Author Organization [facility] Address [address] [place] [address] Care Team Providers Care Digital Sales Director Name Role Phone Unavailable Primary Care Provider Unavailabl e Reason for Visit * Reason Onset Date Comments Pre-visit Intake 12/16/2023 Encounter Details Date Type Department Care Team (Latest Contact Info) Description 12/16/2023 10:30 AM CDT Clinical Communication Virtual Review in [place], [place] [address] [place] [address] Pre-visit Intake Social History Tobacco Use Types [...] How often do you attend chur or yarsanism services? More than 4 times per year [...] care, and heating? Not very hard 01/18/2023 [facility] [place] of Occupat ional Health - Occupational Stress [...] situation today? I have a [facility] place to live 01/18/2023 Education Answer Date Recorded What is the highest level of school you have completed or the highest degree you have received? Bachelor's degree (e.g., BA, AB, BS) 10/14/2022 Sex and Gender Information Value Date Recorded Sex Assigned at Male 10/14/2022 1:13 PM MATERIALS TECH Gender Identity Male 10/14/2022 1:13 PM MATERIALS TECH Sexual Orientation Straight 10/14/2022 1: 13 PM MATERIALS TECH documented as of this encounter Plan of Treatment Upcoming Encounters Date Type Department Care Team (Late st Contact Info) Description 03/23/2024 2:00 PM CDT Appointment Department of Radiation Oncology in [place], [place] [address] [place] [address] Logan Borges M.D. [address] [place] [address] documented as of this encounter Visit Diagnoses Not on filedocumented in this encounter
--- OUTSIDE RECORDS SUMMARY | 2024-03-10 08:30 | XMS_ITS | Referral Summary ---
Author Organization [facility] Address [address] [place] [address] Care Team Providers Care Ornithology Teacher Name Role Phone Unavailable Primary Care Provider Unavailabl e Source Comments Patient records contain information from all sites at [facility]. For routine questions regarding patient records, call [phone] during business hours, M-F 8:00 AM - 5:00 PM Central Time. Record requests for emergency care only can be directed to [phone] at any time.[facility] Encounters Date Type Department Care Team Description 01/20/2024 Clinical Communication Department of Radiation Oncology in [address] [phone] Meggan Faith APRN, C.N.P., D.N.P. 12/18/2023 2:02 PM CDT - 12/18/2023 5:04 PM CDT Hospital Encounter Department of Radiation Oncology in [address] [phone] Logan Borges M.D. Primary Malignant Neoplasm Of Prostate (HCC) (Primary Dx) 12/16/2023 10:30 AM CDT Clinical Communication Virtual Review in [place], [place] [address] [place] [address] Pre-visit Intake from Last 3 Months Allergies [...] How often do you attend chur or anabaptism services? More than 4 times per year 10/14/2022 Do you belong to any clubs o r organizations such as jew groups, unions, fraternal or athletic groups, or [...] care, and heating? Not very hard 01/18/2023 [facility] of Occupat ional Health - Occupational [...] your living situation today? I have a [facility] place to live 01/18/2023 Education Answer Date Recorded What is the highest level of school you have completed or the highest degree you have received? Bachelor's degree (e.g., BA, AB, BS) 10/14/2022 Sex and Gender Information Value Date Recorded Sex Assigned at Male 10/14/2022 1:13 PM DISH NETWORK INSTALLER Gender Identity Male 10/14/2022 1:13 PM DISH NETWORK INSTALLER Sexual Orientation Straight 10/14/2022 1: 13 PM DISH NETWORK INSTALLER Last Filed Vital Signs Vital Sign Reading [...] Body Mass Index 24.77 06/28/2015 7:51 AM DISH NETWORK INSTALLER Plan of Treatment Upcoming Encounters Date Type Department Care Team (Late st Contact Info) Description 03/23/2024 2:00 PM CDT Appointment Department of Radiation Oncology in [place], [place] [address] [place] [address] Logan Borges M.D. [address] [place] [phone]
--- OUTSIDE RECORDS SUMMARY | 2024-03-10 08:30 | XMS_ITS ---
Author Organization [facility] Address [address] [place] [address] Care Team Providers Care Cisco Unified Communications Engineer Name Role Phone Unavailable Primary Care Provider [...] Treated Prescribed Fraction Dose Prescribed Total Dose [id number] 02/05/2023 36 270 cGy 7,020 cGy Reference Point Last Treated On Elapsed Days Session Dose Total Dose [id number] 02/05/2023 36 270 cGy 7,020 cGy
== END 2024-03-10 08:27 | disposition home or self-care (01) ==
LOC: NFLDREF 08:26
PROVIDERS: PCP Internal Medicine; Visit Provider Internal Medicine
DX: R53.1 Weakness (principal); I10 Essential (primary) hypertension
CPT/HCPCS: 80048

== ENCOUNTER 2024-03-17 13:19 | Outpatient (RCR) | payer MEDICARE, OTHER, SELFPAY ==
[2023-12-14 18:48] LABS: PSA Diagnostic* < 0.06 ng/mL (0.10-4.00)
[2024-03-17 16:32] LABS: PSA Diagnostic* < 0.06 ng/mL (0.10-4.00)
[2024-03-20 07:39] LABS: Testosterone, Adult Male 4 ng/dL (300-720); Testosterone, Free Calculation <1 pg/mL (47-244); Testosterone, Percentage Free 1.0 % (1.6-2.9)
== END 2025-02-21 11:15 | disposition home or self-care (01) ==
LOC: LAB 13:19
PROVIDERS: PCP Internal Medicine; Visit Provider Physician Assistant
DX: C61 Malignant neoplasm of prostate (principal); K62.7 Radiation proctitis
CPT/HCPCS: 36415; 84153; 84270; 84402; 84403

== ENCOUNTER 2024-03-21 11:25 | Emergency (ER) | payer MEDICARE, OTHER, SELFPAY ==
[2024-03-21 11:31] VITALS: BP 155/65; PULSE 90; RESP 20; TEMP 36.1; O2SAT 96; BMI 23.0
--- NOTE | 2024-03-21 11:48 | ED_ITS ---
HPI - Syncope General Chief Complaint: Syncope/Fainted Stated Complaint: Light headed, feels like passing out Time Seen by Provider: 03/21/24 11:26 History of Present Illness HPI narrative: This 78-year-old male comes in because of the repeated lightheadedness episodes and a brief syncopal event. He states that he has been feeling lightheaded when getting up over the past couple weeks. Today he was at [employer] and was unable to recover from lightheadedness and did have brief loss of consciousness. He states that he slowly fell backwards into a shelf type unit and then slid to the floor. He regained consciousness and does not report any injury event. 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 He states that there was discussion about using an argon laser to correct a bleed in his rectum. He declined this treatment and reports a meeting with his primary physician where it was noted that his blood pressure was significantly elevated at around 180 or 190 for systolic value. He was started on an antihypertensive at that time and since then has been having lightheadedness. He also is on anticoagulants because of Leiden factor 5 and history of pulmonary embolism. Related Data Previous Rx's ?Medication ?Instructions ?Recorded warfarin 5 mg tablet 5 mg PO .COMPLEX #90 tabs 10/13/23 amlodipine 5 mg tablet 5 mg PO QDAY #30 tabs 03/11/24 Allergies Allergy/AdvReac Type Severity Reaction Status Date / Time rivaroxaban Allergy Severe increased Verified 03/21/24 11:35 liver enzymes, low back spasms Penicillins Allergy Mild Rash Verified 03/21/24 11:35 Review of Systems Status of ROS: Reports: 10 or more systems reviewed and unremarkable except as noted in History and below Narrative: Constitutional: No fevers, no weight gain or loss. Eyes: No discharge. No vision changes. HENT: No congestion, no sore throat, no ear pain. Cardiovascular: No chest pain, no palpitations. Respiratory: No shortness of breath, no wheezes, no cough. Gastrointestinal: No abdominal pain, no vomiting, no diarrhea. Genitourinary: No dysuria, no hematuria. Musculoskeletal: Normal range of motion. Skin: No rashes, no pruritis. Neurological: No weakness, sensory change, speech change. Lightheadedness episodes as described above. Endo/Heme/Allergies: No bruising or bleeding. No polydipsia. Pysch: no suicidality, no anxiety, no insomnia. All other systems reviewed and are negative. [facility] Medical History (Updated 03/21/24 @ 12:52 by Aristeo Dennis MD) Hypertension ?I10 - Essential (primary) hypertension (ICD-10) Radiation proctitis ?K62.7 - Radiation proctitis (ICD-10) Weakness ?R53.1 - Weakness (ICD-10) Rectal bleeding ?K62.5 - Hemorrhage of anus and rectum (ICD-10) Sebaceous cyst ?L72.3 - Sebaceous cyst (ICD-10) Sinusitis ?J32.9 - Chronic sinusitis, unspecified (ICD-10) Elevated PSA ?R97.20 - Elevated prostate specific antigen [PSA] (ICD-10) Screening due ?Z13.9 - Encounter for screening, unspecified (ICD-10) Hypertension ?I10 - Essential (primary) hypertension (ICD-10) Social History What is your current living situation?: I presently have a place to live Problems where you live: declined to answer In the past 12 months, utilities in danger of being shut off: no In past 12 months, lack of transportation kept you from medical appts, meetings, work, or getting things needed for daily living: no In the past 12 mos, have been you worried that your food would run out before you had money to buy more?: never true In the past 12 mos, the food you bought just didn't last and you didn't have money to buy more?: never true Smoking Status: Never smoker Do you use any of these nicotine containing products: None Second hand tobacco smoke exposure: No How often do you have a drink containing alcohol: 2-3 times a week How many standard drinks containing alcohol do you have on a typical day: 1 or 2 How often do you have six or more drinks on one occasion: Never AUDIT-C Alcohol total score: 3 Non-prescribed substance use: denies use How often does anyone, including family, friends and others, physically hurt you : never How often does anyone, including family, friends and others, insult or talk down to you: never How often does anyone, including family, friends and others, threaten you with harm: never Little interest or pleasure in doing things: not at all Feeling down, depressed, or hopeless: not at all Exam Narrative: Exam Narrative: Constitutional: Well-developed, well-nourished, no acute distress. HEENT: Normocephalic, atraumatic. Neck: Normal range of motion. Nontender. Supple. Heart: Irregular. No murmurs. Normal rate. Intact distal pulses. Lungs: Clear to auscultation. No chest discomfort. No wheezes, rhonchi, or rales. Abdomen: Normal bowel sounds. Nontender. No rebound tenderness. Genitalia: Deferred. Back: No midline tenderness. Normal range of motion. Extremities: Normal range of motion. No injury. Skin: Intact. No rash. Warm. No erythema or pallor. Neurologic: No altered sensation. No weakness. Alert and oriented. Psychiatric: No suicidality. No anxiety or depression. No insomnia. Nursing notes and vitals signs are reviewed. Const: Vital Signs, click to edit/add: Vital Signs - 24 hr 03/21/24 11:31 Temperature 96.9 F L Pulse Rate [Right Pulse Oximeter] 90 Respiratory Rate 20 Blood Pressure [Ri ght Upper Arm] 155/65 H Pulse Oximetry 96 Oxygen Delivery Me thod Room Air Course Vital Signs Vital signs: Initial Vital Signs Temperature 96.9 F L 03/21/24 11:31 Temperature Source Temporal Artery Scan 03/21/24 11:31 Pulse Rate 90 03/21/24 11:31 Pulse Rhythm Regular 03/21/24 11:31 Pulse Strength 3+ Normal 03/21/24 11:31 Respiratory Rate 20 03/21/24 11:31 Blood Pressure 155/65 H 03/21/24 11:31 Blood Pressure Mean 95 03/21/24 11:31 Blood Pressure Position Sitting 03/21/24 11:31 Pulse Oximetry 96 03/21/24 11:31 Oxygen Delivery Method Room Air 03/21/24 11:31 Vital Signs Temperature 96.9 F L 03/21/24 11:31 Pulse Rate 90 03/21/24 11:31 Respiratory Rate 20 03/21/24 11:31 Blood Pressure 155/65 H 03/21/24 11:31 Pulse Oximetry 96 03/21/24 11:31 Oxygen Delivery Method Room Air 03/21/24 11:31 Temperature 96.9 F L 03/21/24 11:31 Pulse Rate 90 03/21/24 11:31 Respiratory Rate 20 03/21/24 11:31 Blood Pressure 155/65 H 03/21/24 11:31 Pulse Oximetry 96 03/21/24 11:31 Oxygen Delivery Method Room Air 03/21/24 11:31 MDM - Syncope MDM Narrative Medical decision making narrative: This patient came in because of a brief syncopal event and report of lightheadedness episodes any time he gets up from a sitting or lying position. This is been happening more over the past couple weeks. He does have a history of prostate cancer and has had radiation treatment and now has developed an ongoing rectal bleed. He was offered an argon laser treatment to stop the bleed which he declined. He was started on an antihypertensive medicine a couple weeks ago but this is not stopping his bleeding and may be contributing toward his lightheadedness. Today his hemoglobin returns at 8.6 which is down 2 grams/deciliter in the past 11 days. His EKG shows a sinus rhythm with frequent PACs. He is also therapeutic on Coumadin for history of pulmonary embolism and Leiden factor 5 mutation. The patient feels okay to return home and will follow-up with his oncologist. I did advise him to go with the procedure to attempt to stop the bleeding. Lab Data Labs: Lab Results 03/21/24 03/21/24 Range/Units 11:48 12:00 WBC 6.51 (4.50-11.00) K/uL RBC 2.96 L (4.30-5.90) m/uL Hgb 8.6 L (13.5-17.5) gm/dL Hct 27.4 L (37.0-53.0) % MCV 93 (80-100) fL MCH 29 (26-34) pg MCHC 31 L (32-36) gm/dL RDW Coeff of Leeroy 18.7 H (11.5-15.5) % Plt Count 268 (140-440) K/uL Neut % (Auto) 76.4 H (42.0-72.0) % Lymph % (Auto) 12.1 L (20-44) % Hernando % (Auto) 8.0 (0.0-11.0) % Eos % (Auto) 2.5 (0.0-7.0) % Baso % (Auto) 0.2 (0.0-3.0) % Neut # (Auto) 5.00 (1.7-7.0) K/uL Lymph # (Auto) 0.80 L (0.90-2.90) K/uL Hernando # (Auto) 0.50 (0.00-0.90) K/UL Eos # (Auto) 0.16 (0.00-0.50) K/uL Baso # (Auto) 0.01 (0.00-0.30) K/uL Abs Immat Gran (auto) 0.05 (0.00-0.30) K/uL Imm/Tot Granulo (auto) 0.8 % INR 2.53 H (0.91-1.10) Sodium 137 (135-149) mmol/L Potassium 4.2 (3.6-5.1) mmol/L Chloride 105 (96-114) mmol/L Carbon Dioxide 24 (20-32) mmol/L Anion Gap 8 (7-15) mEq/L BUN 28 (7-30) mg/dL Creatinine 1.8 H (0.5-1.5) mg/dL Estimated Creat Clear 35.84 Estimated GFR 39 ml/min Glucose 97 (60-115) mg/dL Calcium 9.1 (8.4-10.6) mg/dL POC Troponin I 0.01 (0.01-0.04) ng/ml ECG Data Attestation: I personally reviewed and interpreted this ECG as follows: Interpretation: Sinus rhythm with frequent premature atrial complexes sometimes in a pattern of bigeminy. There are no specific ST or T-wave abnormalities. Her rate is 84 beats per minute. Discharge Plan Discharge Clinical Impression: Rectal bleeding, Prostate cancer, nursing home (current) use of anticoagulants, Anemia Patient Disposition: Home, Self-Care Condition: Unchanged Additional Instructions: Hold antihypertensive medicine. Follow up with oncologist and primary physician for ongoing management. Return if worsening. Prescriptions: No Action warfarin 5 mg tablet 5 mg PO .COMPLEX Qty: 90 0RF Protocol: Dose Management Condition: Thursday Dose/Route: 2.5 mg Instruction: 0.5 x 5 mg tablets Condition: Thursday Dose/Route: 2.5 mg Instruction: 0.5 x 5 mg tablets Condition: Thursday Dose/Route: 2.5 mg Instruction: 0.5 x 5 mg tablets Condition: Thursday Dose/Route: 2.5 mg Instruction: 0.5 x 5 mg tablets Condition: Dose/Route: 2.5 mg Instruction: 0.5 x 5 mg tablets Condition: Thursday Dose/Route: 2.5 mg Instruction: 0.5 x 5 mg tablets Condition: Thursday Dose/Route: 2.5 mg Instruction: 0.5 x 5 mg tablets Protocol Text: Adjustment Start Date: Thursday11/24/23 INR Value: 3.29 INR Date: 11/23/23 Recheck Date: 12/08/23 Rx Instructions: Take one tablet on Thursday and Thursday, then 0.5 tablets on all other days; amlodipine 5 mg tablet 5 mg PO QDAY Qty: 30 0RF Follow Up/Referrals: Julio Brown MD [Primary Care Provider] - Stand Alone Forms: [employer] Info Instructions
--- OUTSIDE RECORDS SUMMARY | 2024-03-21 11:59 | XMS_ITS | Clinical Summary ---
Author Organization [facility] Address [place], [place] [address] Care Team Providers Care Waist Presser Name Role Phone Pcp, No Primary Care [...] Date Gross hematuria 07/08/2017 Elevated PSA 07/08/2017 Social History Tobacco Use Types Packs/Day Years Used Date Smoking Tobacco: Former Smokeless Tobacco: Never Sex and Gender Information Value Date Recorded Sex Assigned at Not on file Gender Identity Not on file Sexual Orientation Not on file Obstetrics History Last Filed Vital Signs Vital Sign Reading Time Taken Comments Blood Pressure 121/78 07/08/2017 9:42 AM SEISMOMETER OPERATOR Pulse 96 07/08/2017 9:42 AM SEISMOMETER OPERATOR Temperature - - Respiratory Rate - - Oxygen Saturation 98% 07/08/2017 9:42 AM SEISMOMETER OPERATOR Inhaled Oxygen Concentration - - Weight 75.3 kg (166 lb) 07/08/2017 9:42 AM SEISMOMETER OPERATOR Height - - Body Mass Index - [...] 1 - PCV) 013 COVID-19 vaccine series (1 - 2022-24 season) 3 Influenza for age 65+ 04/24/2024 Care Teams Waist Presser Relationship Specialty Start Date End Date Pcp, No . PCP - General 07/08/17
--- OUTSIDE RECORDS SUMMARY | 2024-03-21 12:00 | XMS_ITS | Encounter Summary ---
Author Organization [facility] Address [address] [place] [address] Care Team Providers Care Contact Center Director Name Role Phone Unavailable Primary Care Provider Unavailabl e Encounter Details Date Type Department Care Team (Late st Contact Info) Description 01/20/2024 Clinical Communication Department of Radiation Oncology in [place], [place] [address] [place] [phone] Meggan Faith, STEPHANIA, C.N.P., D.N.P. [address] [place] [phone] Social History Tobacco Use Types Packs/Day Years [...] often do you attend chur ch or jehovah's witness services? More than 4 times per year 10/14/2022 Do you belong to any clubs o r organizations such as jainism groups, unions, fraternal or athletic groups, or [...] care, and heating? Not very hard 01/18/2023 [facility] of Occupat ional Health - Occupational [...] your living situation today? I have a [facility] place to live 01/18/2023 Education Answer Date Recorded What is the highest level of school you have completed or the highest degree you have received? Bachelor's degree (e.g., BA, AB, BS) 10/14/2022 Sex and Gender Information Value Date Recorded Sex Assigned at Male 10/14/2022 1:13 PM TEAM LEADER SURGERY Gender Identity Male 10/14/2022 1:13 PM TEAM LEADER SURGERY Sexual Orientation Straight 10/14/2022 1: 13 PM TEAM LEADER SURGERY documented as of this encounter Miscellaneous Notes [...] CDT Appointment Department of Radiation Oncology in [place], [place] [address] [place] [address] Logan Borges M.D. [address] [place] [address] documented as of this encounter Visit Diagnoses Not on filedocumented in this encounter
--- OUTSIDE RECORDS SUMMARY | 2024-03-21 12:00 | XMS_ITS | Referral Summary ---
Author Organization [facility] Address [address] [place] [address] Care Team Providers Care Career Specialist Name Role Phone Unavailable Primary Care Provider Unavailabl e Source Comments Patient records contain information from all sites at [facility]. For routine questions regarding patient records, call [phone] during business hours, M-F 8:00 AM - 5:00 PM Central Time. Record requests for emergency care only can be directed to [phone] at any time.[facility] Encounters Date Type Department Care Team Description 01/20/2024 Clinical Communication Department of Radiation Oncology in [place], [place] [address] [place] [address] Meggan Faith APRN, C.N.P., D.N.P. from Last 3 Months Allergies Active Allergy [...] How often do you attend chur or baptist services? More than 4 times per year 10/14/2022 Do you belong to any clubs o r organizations such as druze groups, unions, fraternal or athletic groups, or [...] care, and heating? Not very hard 01/18/2023 [facility] [place] of Occupat ional Health - Occupational Stress [...] your living situation today? I have a [facility] place to live 01/18/2023 Education Answer Date Recorded What is the highest level of school you have completed or the highest degree you have received? Bachelor's degree (e.g., BA, AB, BS) 10/14/2022 Sex and Gender Information Value Date Recorded Sex Assigned at Male 10/14/2022 1:13 PM EMERGENCY CARE TECH Gender Identity Male 10/14/2022 1:13 PM EMERGENCY CARE TECH Sexual Orientation Straight 10/14/2022 1: 13 PM EMERGENCY CARE TECH Last Filed Vital Signs Vital Sign Reading [...] Body Mass Index 24.77 06/28/2015 7:51 AM EMERGENCY CARE TECH Plan of Treatment Upcoming Encounters Date Type Department Care Team (Late st Contact Info) Description 03/23/2024 2:00 PM CDT Appointment Department of Radiation Oncology in [place], [place] [address] [place] [address] Logan Borges M.D. [address] [place] [address]
--- OUTSIDE RECORDS SUMMARY | 2024-03-21 12:00 | XMS_ITS ---
Author Organization [facility] Address [address] [place] [address] Care Team Providers Care Component Lab Tech Name Role Phone Unavailable Primary Care Provider [...] Treated Prescribed Fraction Dose Prescribed Total Dose [id number] 02/05/2023 36 270 cGy 7,020 cGy Reference Point Last Treated On Elapsed Days Session Dose Total Dose [id number] 02/05/2023 36 270 cGy 7,020 cGy
--- OUTSIDE RECORDS SUMMARY | 2024-03-21 12:00 | XMS_ITS | Encounter Summary ---
Author Organization [facility] Address [address] [place] [address] Care Team Providers Care [employer] Silver[employer] Salesperson Name Role Phone Unavailable Primary Care Provider Unavailabl e Reason for Visit * Reason Onset Date Comments Pre-visit Intake 12/16/2023 Encounter Details Date Type Department Care Team (Latest Contact Info) Description 12/16/2023 10:30 AM CDT Clinical Communication Virtual Review in [place], [place] [address] [place] [address] Pre-visit Intake Social History Tobacco Use Types [...] How often do you attend chur or scientologist services? More than 4 times per year 10/14/2022 Do you belong to any clubs o r organizations such as faith groups, unions, fraternal or athletic groups, or [...] care, and heating? Not very hard 01/18/2023 [facility] [place] of Occupat ional Health - Occupational Stress [...] your living situation today? I have a [facility] place to live 01/18/2023 Education Answer Date Recorded What is the highest level of school you have completed or the highest degree you have received? Bachelor's degree (e.g., BA, AB, BS) 10/14/2022 Sex and Gender Information Value Date Recorded Sex Assigned at Male 10/14/2022 1:13 PM MANAGER MARITIME Gender Identity Male 10/14/2022 1:13 PM MANAGER MARITIME Sexual Orientation Straight 10/14/2022 1: 13 PM MANAGER MARITIME documented as of this encounter Plan of Treatment Upcoming Encounters Date Type Department Care Team (Late st Contact Info) Description 03/23/2024 2:00 PM CDT Appointment Department of Radiation Oncology in [place], [place] [address] [place] [address] Logan Borges M.D. [address] [place] [address] documented as of this encounter Visit Diagnoses Not on filedocumented in this encounter
--- OUTSIDE RECORDS SUMMARY | 2024-03-21 12:00 | XMS_ITS ---
Author Organization [facility] Address [address] [place] [address] Care Team Providers Care Community Facilitator Name Role Phone Unavailable Unavailable Unavailable Surgery Details Not on file Complications Check Surgery Details section. Procedure Estimated Blood Loss Check Surgery Details section. Procedure Findings Check Surgery Details section. Procedure Specimens Taken Check Surgery Details section.
--- OUTSIDE RECORDS SUMMARY | 2024-03-21 12:00 | XMS_ITS | Clinical Summary ---
Author Organization [facility] Address [address] [place] [address] Care Team Providers Care Building Service Worker Name Role Phone Unavailable Primary Care Provider Unavailabl e Source Comments Patient records contain information from all sites at [facility]. For routine questions regarding patient records, call [phone] during business hours, M-F 8:00 AM - 5:00 PM Central Time. 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 from Last 3 Months Immunizations Name Administration [...] How often do you attend chur or jainism services? More than 4 times per year 10/14/2022 Do you belong to any clubs o r organizations such as jehovah's witness groups, unions, fraternal or athletic groups, or [...] care, and heating? Not very hard 01/18/2023 [facility] [place] of Occupat ional Health - Occupational Stress [...] your living situation today? I have a [facility] place to live 01/18/2023 Education Answer Date Recorded What is the highest level of school you have completed or the highest degree you have received? Bachelor's degree (e.g., BA, AB, BS) 10/14/2022 Sex and Gender Information Value Date Recorded Sex Assigned at Male 10/14/2022 1:13 PM JAIL OFFICER Gender Identity Male 10/14/2022 1:13 PM JAIL OFFICER Sexual Orientation Straight 10/14/2022 1: 13 PM JAIL OFFICER Last Filed Vital Signs Vital Sign Reading [...] Body Mass Index 24.77 06/28/2015 7:51 AM JAIL OFFICER Plan of Treatment Upcoming Encounters Date Type Department Care Team (Late st Contact Info) Description 03/23/2024 2:00 PM CDT Appointment Department of Radiation Oncology in [place], [place] [address] [place] [address] Logan Borges M.D. [address] [place] [address] Health Maintenance Due Date Last Done Comments [...]
--- OUTSIDE RECORDS SUMMARY | 2024-03-21 12:00 | XMS_ITS | Encounter Summary ---
Author Organization [facility] Address [address] [place] [address] Care Team Providers Care Hvac Engineer Name Role Phone Unavailable Primary Care Provider Unavailabl e Reason for Referral * Outpatient (Routine) - Authorized Specialty Diagnoses / Procedures Referred By Contac t Referred To Contact Radiation Oncology Meggan Faith APRN, C.N.P., D.N.P. [address] [place] [phone] Logan Borges M.D. [address] [place] [phone] Referral ID Status Reason Start Date Expiration Date V isits Requested Visits Authorized [id number] Authorized 12/18/2023 06/18/2025 1 1 Scheduling Instructions After PSA and Testosterone at [facility] * Outpatient (Routine) - Closed Specialty Diagnoses / Procedures Referred By Contac t Referred To Contact Radiation Oncology Maria Del Rosario Galeano P.A.-C., M.S. [address] [place] [phone] Logan Borges M.D. [address] [place] [phone] Referral ID Status Reason Start Date Expiration Date Visits Re quested Visits Authorized [id number] Closed 04/14/2023 04/13/2026 1 1 Scheduling Instructions [...] Maria Del Rosario Galeano P.A.-C., M.S. [address] [place] [phone] Logan Borges M.D. [address] [place] [phone] Referral ID Status Reason Start Date Expiration Date Visits Re quested Visits Authorized [id number] Closed 04/14/2023 04/13/2026 1 1 Encounter Details Date Type Department Care Team (Latest Contact Info) Description 12/18/2023 2:02 PM CDT - 12/18/2023 5:04 PM CDT Hospital Encounter Department of Radiation Oncology in [place], [place] [address] [place] [phone] Logan Borges M.D. [address] [place] [phone] Primary Malignant Neoplasm Of Prostate (HCC) [...] How often do you attend chur or mu-ism services? More than 4 times per year 10/14/2022 Do you belong to any clubs o r organizations such as alevism groups, unions, fraternal or athletic groups, or [...] care, and heating? Not very hard 01/18/2023 [facility] of Occupat ional Health - Occupational Stress [...] your living situation today? I have a [facility] place to live 01/18/2023 Education Answer Date Recorded What is the highest level of school you have completed or the highest degree you have received? Bachelor's degree (e.g., BA, AB, BS) 10/14/2022 Sex and Gender Information Value Date Recorded Sex Assigned at Male 10/14/2022 1:13 PM NIP WRAPPER Gender Identity Male 10/14/2022 1:13 PM NIP WRAPPER Sexual Orientation Straight 10/14/2022 1: 13 PM NIP WRAPPER documented as of this encounter Last Filed [...] Body Mass Index 24.77 06/28/2015 7:51 AM NIP WRAPPER documented in this encounter Medications at Time [...] A. Prostate, right biopsy: --- Prostate adenocarcinoma, Mindoro's grade 3 + 4, grade group 2. --- Percentage of pattern 4 is 21 to 31%. --- Focal cribriform glands are present. --- Tumor is present on 2 of 6 cores involving approximately 20% of the specimen. --- Maximum submitted tumor length is 9 mm. --- There is no perineural invasion or extraprostatic extension. B. Prostate, left biopsy: --- Prostate adenocarcinoma, Mindoro's grade 3 + 3, grade group 1. [...] IIEF-15 Erectile Function:3/30 Orgasmic Function:0/10 Sexual Desire:3/10 [place] Satisfaction: 0/15 Overall satisfaction:2/10 Total Score:8/75 REVIEW [...] to move forward with a colonoscopy in [place] with APC but needed assistance from his [...] patient obtain another colonoscopy with APC in [place]. I did explain that we would need Dr. Brown's assistance in bridging his warfarin. We also provided our recommended suppository regimen provided to us by our GI colleagues in [place]. He will take this information to Dr. [...] treatment. Patient seen in collaboration with Dr. Broges, please review his attestation for additional information. [...] D.N.P. 12/18/2023 4:02 PM CDT [facility] [address] [place] [address] Associated attestation - Logan Borges M.D. - [...] had temporary benefit. His primary providers Dr. Bronw who performed a colonoscopy on December 11, [...] we would start with a colonoscopy in [place] with argon plasma coagulation given the severity [...] 15 minutes caring for this patient including uxqz-cd-bewo and egv-lagm-wd-face time. Signed by: Logan Borges M.D. 12/18/23 5:03 PM CDT [facility] [place] documented in this encounter Miscellaneous Notes * Addendum Note - Risa Cavazos C.NHortenciaAHortencia - 12/18/2023 2:30 PM CDTEncounter addended by: Risa Cavazos C.N.A. on: 12/21/2023 7:51 AM Actions taken: Letter saved documented in this encounter Plan of Treatment Upcoming Encounters Date Type Department Care Team (Late st Contact Info) Description 03/23/2024 2:00 PM CDT Appointment Department of Radiation Oncology in [place], [place] [address] [place] [phone] Logan Borges M.D. [address] [place] [phone] Scheduled Orders Name Type Priority Associated Diagnoses [...]
[2024-03-21 12:11] LABS: Basophils Absolute Auto 0.01 K/uL (0.00-0.30); Basophils Percent Auto 0.2 % (0.0-3.0); Eosinophils Absolute Auto 0.16 K/uL (0.00-0.50); Eosinophils Percent Auto 2.5 % (0.0-7.0); Hematocrit 27.4 % (37.0-53.0); Hemoglobin* 8.6 gm/dL (13.5-17.5); Immature Granulocytes Abs Auto 0.05 K/uL (0.00-0.30); Immature Granulocytes Pct Auto 0.8 %; Lymphocytes Percent Auto 12.1 % (20-44); Mean Corpuscular HGB Conc 31 gm/dL (32-36); Mean Corpuscular Hemoglobin 29 pg (26-34); Mean Corpuscular Volume 93 fL (80-100); Neutrophils Percent Auto 76.4 % (42.0-72.0); Platelet Count* 268 K/uL (140-440); RDW Coefficient of Variation % 18.7 % (11.5-15.5); Red Blood Count 2.96 m/uL (4.30-5.90); White Blood Count* 6.51 K/uL (4.50-11.00)
[2024-03-21 12:19] LABS: Chloride* 105 mmol/L (96-114); Potassium* 4.2 mmol/L (3.6-5.1); Sodium* 137 mmol/L (135-149)
[2024-03-21 12:22] LABS: Anion Gap 8 mEq/L (7-15); Blood Urea Nitrogen* 28 mg/dL (7-30); Carbon Dioxide* 24 mmol/L (20-32); Creatinine* 1.8 mg/dL (0.5-1.5); Est. Creatinine Clearance* 35.84; Estimated Glomerular Filt Rate 39 ml/min; Glucose* 97 mg/dL (60-115)
[2024-03-21 12:23] LABS: Calcium* 9.1 mg/dL (8.4-10.6); Slide Review Reflex No
[2024-03-21 12:30] LABS: Troponin, Point-of-Care* 0.01 ng/ml (0.01-0.04)
[2024-03-21 12:38] LABS: INR 2.53 (0.91-1.10); Prothrombin Time 29.2 Seconds
[2024-03-21 13:02] VITALS: BP 150/78; PULSE 75; RESP 18; O2SAT 96
== END 2024-03-21 13:03 | disposition home or self-care (01) ==
PROVIDERS: Emergency Provider Emergency Medicine Emergency Medical Services; PCP Internal Medicine
DX: K62.5 Hemorrhage of anus and rectum (principal); C61 Malignant neoplasm of prostate; D64.9 Anemia, unspecified; Z79.01 Long term (current) use of anticoagulants
CPT/HCPCS: 36415; 80048; 84484; 85025; 85610; 93005; 99284

== ENCOUNTER 2024-06-27 13:30 | Outpatient (RCR) | payer MEDICARE, OTHER, SELFPAY ==
[2024-05-27 09:42] LABS: Basophils Absolute Auto 0.03 K/uL (0.00-0.30); Basophils Percent Auto 0.6 % (0.0-3.0); Eosinophils Absolute Auto 0.21 K/uL (0.00-0.50); Eosinophils Percent Auto 3.9 % (0.0-7.0); Hematocrit 29.4 % (37.0-53.0); Hemoglobin* 8.9 gm/dL (13.5-17.5); Immature Granulocytes Abs Auto 0.03 K/uL (0.00-0.30); Immature Granulocytes Pct Auto 0.6 %; Lymphocytes Absolute Auto 1.22 K/uL (0.90-2.90); Lymphocytes Percent Auto 22.5 % (20-44); Mean Corpuscular HGB Conc 30 gm/dL (32-36); Mean Corpuscular Hemoglobin 28 pg (26-34); Mean Corpuscular Volume 91 fL (80-100); Monocytes Percent Auto 7.6 % (0.0-11.0); Neutrophils Absolute Auto 3.53 K/uL (1.7-7.0); Neutrophils Percent Auto 64.8 % (42.0-72.0); Platelet Count* 260 K/uL (140-440); RDW Coefficient of Variation % 15.2 % (11.5-15.5); Red Blood Count 3.24 m/uL (4.30-5.90); White Blood Count* 5.43 K/uL (4.50-11.00)
[2024-05-27 09:43] LABS: Slide Review Reflex No
--- NOTE | 2024-06-16 10:28 | URNOTE ---
Prior auth is not required for Tonja([id number]). Services are based on medical necessity and follow medicare guidelines.
--- NOTE | 2024-06-16 13:05 | PC.NURSE ---
Diagnosis for Venofer: Iron Deficiency Anemia
[2024-06-17 12:37] VITALS: BP 151/88; PULSE 85; RESP 16; TEMP 35.6; O2SAT 97
[2024-06-17] MEDS: 0.9 % SODIUM CHLORIDE 500 ML 500 ML IV (13:20)
[2024-06-17] MEDS: IRON SUCROSE COMPLEX 200 MG in 0.9 % SODIUM CHLORIDE 100 ml 100 ML 440 MG IVPB (13:22)
[2024-06-17 13:44] VITALS: BP 170/68; PULSE 72; RESP 16; O2SAT 94
[2024-06-17] MEDS: SODIUM CHLORIDE 0.9 % (FLUSH) 10 ML SYRINGE IVF (13:44)
[2024-06-17 14:18] VITALS: BP 176/78; PULSE 68; RESP 16; O2SAT 96
[2024-06-20 13:27] VITALS: BP 147/70; PULSE 98; RESP 18; TEMP 36.3; O2SAT 92
[2024-06-20] MEDS: 0.9 % SODIUM CHLORIDE 500 ML 500 ML IV (13:56)
[2024-06-20] MEDS: IRON SUCROSE COMPLEX 200 MG in 0.9 % SODIUM CHLORIDE 100 ml 100 ML 220 MG IVPB (13:56)
[2024-06-20] MEDS: SODIUM CHLORIDE 0.9 % (FLUSH) 10 ML SYRINGE IVF (13:57)
[2024-06-20 14:31] VITALS: BP 157/72; PULSE 73; RESP 16; TEMP 36.6; O2SAT 95
[2024-06-22 13:46] VITALS: BP 157/71; PULSE 90; RESP 16; TEMP 36; O2SAT 95
[2024-06-22] MEDS: IRON SUCROSE COMPLEX 200 MG in 0.9 % SODIUM CHLORIDE 100 ml 100 ML 440 MG IVPB (14:10)
[2024-06-22 14:30] VITALS: BP 163/73; PULSE 81; RESP 14; O2SAT 94
[2024-06-22 15:04] VITALS: BP 162/75; PULSE 74; RESP 16; O2SAT 93
[2024-06-24 13:39] VITALS: BP 158/76; PULSE 93; RESP 16; TEMP 36.8; O2SAT 95
[2024-06-24] MEDS: 0.9 % SODIUM CHLORIDE 500 ML 500 ML IV (13:52)
[2024-06-24] MEDS: SODIUM CHLORIDE 0.9 % (FLUSH) 10 ML SYRINGE IVF (13:52)
[2024-06-24] MEDS: IRON SUCROSE COMPLEX 200 MG in 0.9 % SODIUM CHLORIDE 100 ml 100 ML 440 MG IVPB (13:52)
[2024-06-24 14:11] VITALS: BP 165/83; PULSE 81; RESP 16; O2SAT 95
[2024-06-27 13:23] VITALS: BP 171/84; PULSE 76; RESP 16; TEMP 35.8; O2SAT 98
[2024-06-27] MEDS: SODIUM CHLORIDE 0.9 % (FLUSH) 10 ML SYRINGE IVF (13:54)
[2024-06-27] MEDS: IRON SUCROSE COMPLEX 200 MG in 0.9 % SODIUM CHLORIDE 100 ml 100 ML 440 MG IVPB (13:54)
[2024-06-27 14:41] VITALS: BP 182/96; PULSE 76; RESP 16; TEMP 36.2; O2SAT 94
--- NOTE | 2024-06-27 14:41 | ONC.NURNOTE ---
Patient's BP was elevated during infusion. Patient stated he was taken off his BP meds by Dr. Brown. Patient denies headache, shortness of breath, vision changes, chest pain. Recommended that patient call Dr. Brown's office to get an appointment to address BP. Also educated on signs and symptoms of when to go to the Emergency room.
== END 2024-11-23 23:59 | disposition home or self-care (01) ==
LOC: CCIC 13:30
PROVIDERS: PCP Internal Medicine; Referring Provider Internal Medicine; Visit Provider Internal Medicine
DX: C61 Malignant neoplasm of prostate (principal); D50.9 Iron deficiency anemia, unspecified
CPT/HCPCS: 36415; 85025; 96365; 96374; J1756; J7030

== ENCOUNTER 2024-06-30 14:52 | Outpatient (CLI) | payer MEDICARE, OTHER, SELFPAY ==
--- OUTSIDE RECORDS SUMMARY | 2024-06-30 14:58 | XMS_ITS | Encounter Summary ---
Author Organization [facility] Address [address] [place] [phone] Care Team Providers Care Associate Manager Name Role Phone Unavailable Primary Care Provider Unavailabl e Reason for Referral * Outpatient (Routine) - Authorized Specialty Diagnoses / Procedures Referred By Contac t Referred To Contact Radiation Oncology Maria Del Rosario Galeano P.A.-C., M.SHortencia [address] [place] [phone] Phone: tel: fax: Logan Borges M.D. [address] [place] [phone] Phone: tel: fax: Referral ID Status Reason Start Date Expiration Date V isits Requested Visits Authorized [id number] Authorized 05/30/2024 11/29/2025 1 1 Scheduling Instructions Please schedule a couple of weeks after colonoscopy with APC. Patient should have PSA, testosterone, and CBC lab work completed prior to visit at [facility]. * Outpatient (Routine) - Authorized Specialty Diagnoses / Procedures Referred By Contac t Referred To Contact Diagnoses Radiation Therapy Proctitis Procedures Colonoscopy Maria Del Rosario Galeano P.A.-C., M.S. [address] [place] [phone] Phone: tel: fax: [facility] Referral ID Status Reason Start Date Expiration Date V isits Requested Visits Authorized [id number] Authorized 05/30/2024 05/30/2025 1 1 * Outpatient (Routine) - Closed Specialty Diagnoses / Procedures Referred By Katy t Referred To Contact Radiation Oncology Logan Borges M.D. [address] [place] [phone] Phone: tel: fax: [facility] Referral ID Status Reason Start Date Expiration Date Visits Re quested Visits Authorized [id number] Closed 04/22/2024 10/22/2025 1 1 Scheduling Instructions CBC at [facility] prior to visit Reason for Visit * Outpatient (Routine) - Closed Specialty Diagnoses / Procedures Referred By Katy vergara Referred To Contact Radiation Oncology Logan Borges M.D. [address] [place] [phone] Phone: tel: fax: [facility] Referral ID Status Reason Start Date Expiration Date Visits Re quested Visits Authorized [id number] Closed 04/22/2024 10/22/2025 1 1 Encounter Details Date Type Department Care Team (Latest Contact Info) Description 05/30/2024 3:10 PM CDT - 05/30/2024 6:46 PM CDT Hospital Encounter Department of Radiation Oncology in [place], [place] [address] [place] [phone] Logan Borges M.D. [address] [place] [phone] Primary Malignant Neoplasm Of Prostate (HCC) (Primary Dx); Radiation Therapy Proctitis Social History Tobacco Use Types Packs/Day Years [...] week 10/14/2022 How often do you attend [facility] or oriental orthodox services? More than 4 times per year [...] care, and heating? Not very hard 01/18/2023 [facility] of Occupat ional Health - [...] your living situation today? I have a [facility] place to live 01/18/2023 Education Answer Date Recorded What is the highest level of school you have completed or the highest degree you have received? Bachelor's degree (e.g., BA, AB, BS) 10/14/2022 Sex and Gender Information Value Date Recorded Sex Assigned at Male 10/14/2022 1:13 PM CASE PLANNER Legal Sex Male 9:17 PM CASE PLANNER Gender Identity Male 10/14/2022 1:13 PM CASE PLANNER Sexual Orientation Straight 10/14/2022 1: 13 PM CASE PLANNER documented as of this encounter Last Filed Vital Signs Vital Sign Reading Time Taken Comments Blood Pressure 140/69 05/30/2024 3:20 PM CDT Pulse 96 05/30/2024 3:20 PM CDT Temperature 36.1 ??C (97 ??F) 05/30/2024 3:20 PM CDT Respiratory Rate - - Oxygen Saturation - - Inhaled Oxygen Concentration - - Weight 76.4 kg (168 lb 6.9 oz) 05/30/2024 3:20 P M CDT Height - - Body Mass Index 24.81 06/28/2015 7:51 AM CASE PLANNER documented in this encounter Medications at Time of Discharge amLODIPine (Norvasc) 5 mg tablet Take 1 tablet by mouth daily. 03/17/2024 ascorbic acid (VITAMIN C ORAL) Take by mouth daily as needed. cholecalciferol (Vitamin D3) 125 mcg (5,000 Unit) tablet Take 1 tablet by mouth daily. LYSINE ORAL Take by mouth as needed (cold sore). pentoxifylline (TRENtal) 400 mg ER tablet Take 1 tablet (400 mg total) by mouth 2 (two) times a day with meals. 60 tablet 5 04/22/2024 polyethylene glycol-electrolyt es (Golytely) 236-22.74-6.74 -5.86 gram solution Take first half of the prep at 4pm the evening before and start second half 3 to 6 hours before and finish 2 hours prior to report time. 4000 mL 05/30/2024 sucralfate 10% enema (100 mg/mL)(20 mL/bottle) Insert 1 enema (20 mL total) into the rectum 2 (two) times a day. 1200 mL 1 04/28/2024 3:43 PM CDT 04/22/2024 vitamin E 180 mg (400 Unit) capsule Take 1 capsule (180 mg total) by mouth 2 (two) times a day. 60 capsule 5 04/28/2024 3:43 PM CDT 04/22/2024 warfarin (COUMADIN) 5 mg tablet Take 2.5 mg by mouth daily. 09/04/2022 documented as of this encounter Progress Notes * Maria Del Rosario Galeano P.A.-C., M.S. - 05/30/2024 3:30 PM CDT SUBJECTIVE DIAGNOSIS 1. Primary Malignant Neoplasm Of Prostate (HCC) 2. Radiation Therapy Proctitis SUPERVISED BY: Logan Borges M.D. ([phone]) HISTORY OF PRESENT ILLNESS Mr. 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 He completed definitive radiation therapy on February 05, 2023. His oncologic history is as follows: Oncology [...] A. Prostate, right biopsy: --- Prostate adenocarcinoma, Atwater's grade 3 + 4, grade group 2. --- Percentage of pattern 4 is 21 to 31%. --- Focal cribriform glands are present. --- Tumor is present on 2 of 6 cores involving approximately 20% of the specimen. --- Maximum submitted tumor length is 9 mm. --- There is no perineural invasion or extraprostatic extension. B. Prostate, left biopsy: --- Prostate adenocarcinoma, Atwater's grade 3 + 3, grade group 1. [...] No evidence of osseous metastases. 12/18/2022 - 12/2023 Biological/Targeted/Hormone Therapy 12/18/2022: Leuprolide 7.5 mg 01/16/2023: [...] PSA <0.06 ng/mL 12/14/2023: PSA <0.06 ng/mL 03/17/2024: PSA <0.06 ng/mL. Testosterone total 4 ng/dL. 12/14/2023 Critical Imaging Colonoscopy findings: 1. The perianal and digital rectal exam was normal. 2. A 2 mm polyp was found [...] for microscopic, active, and chronic colitis INTERVAL HISTORY: The patient was seen and examined today with Dr. Borges. The patient reports doing about the same overall. He reports persistent fatigue. He reports that his rectal bleeding is slightly better. He reports that the bleeding occurs with activity such as walking, lower body movement, or riding a digital media specialist. He estimates that the bleeding occurs once every 3-4 days. He does not have bleeding with a bowel movement. He has not needed a blood transfusion since his last visit here. He is averaging one bowel movement daily. He denies rectal pain. He does report some itching of the anal area. He is taking Trental and Vitamin E as prescribed. He has also beenusing the prescribed sucralfate enemas twice daily. He reports stable urination. He denies urinary incontinence or hematuria. He reports that he remains on the same dose of Warfarin. PATIENT COMPLETED QUESTIONNAIRES: AUA Symptom Index 5 (0, 1, 0, 1, 0, 0, 3) IIEF-5 5 (1, 1, 1, 1, 1) REVIEW OF SYSTEMS Review of systems was negative except as documented above. PATIENT REPORTED SYMPTOM SCREEN: FATIGUE (Scale: 0 = no fatigue; 10 = worst fatigue you can imagine): 7-8 PAIN (Scale: 0 = no pain; 10 = worst pain you can imagine): 1 OVERALL QUALITY OF LIFE (Scale: 0 = as bad as can be; 10 = as good as can be): 6 OBJECTIVE BP 140/69 (BP Location: Right arm, Patient Position: Sitting, Cuff Size: Regular) Pulse 96 Temp36.1 ??C (Temporal) Wt 76.4 kg BMI 24.81 kg/m?? PHYSICAL EXAMINATION General: Alert and oriented, in no apparent distress. 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, on warfarin #3 Erectile dysfunction preceding radiotherapy #4 Occasional scant fecal incontinence, preceding radiotherapy #5 Androgen deprivation therapy initiated on December 18, 2022 with a leuprolide 7.5 mg injection; final leuprolide 22.5 mg injection on September 29, 2023 #6 Osteopenia on bone density scan on December 24, 2022 #7 Radiotherapy to the prostate and proximal seminal vesicles initiated on December 31, 2022; completed on February 05, 2023 #8 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 He reports slight improvement in rectal bleeding, but he is having persistent bleeding once every 3-4 days. He has not required a recent blood transfusion. His hemoglobin is slightly increased to 8.9 compared to a previously reported value of 8.2 in February. He is taking Trental and Vitamin E and using sucralfate enemas as prescribed by Dr. Borges. We discussed the recommendation for proceeding with a colonoscopy with planned argon plasma laser coagulation in [place]. We discussed that he would need to see Dr. Brown for assistance in bridging therapy for Warfarin and a referral order will be placed. Dr. Borges also met with the patient today, please see his attestation for details. After their discussion it was agreed to proceed with a colonoscopy with APC in June and an order will be placed. We will order for a return visit to be scheduled here following the procedure with a CBC lab draw completed prior to the visit. With regards to PSA monitoring following radiation therapy, it has already been ordered for the patient to have a PSA and testosterone lab draw done at the end of May at [facility]. Thislab work can be coordinated to be done with the CBC lab draw prior to his return visit here. The patient will contact us with questions or concerns. He verbally expressed his understanding of the plan. EDUCATION: Ready to learn, no apparent learning barriers were identified; learning preferences include listening. Explained diagnosis and treatment plan; patient expressed understanding of the content. I personally spent 23 minutes in care of the patient today. Time includes both non face to face andface to face patient care. Signed by: Maria Del Rosario Galeano P.A.-C., M.S. 05/30/2024 4:04 PM CDT [facility] [address] [place] [phone] Cosigned by Logan Borges M.D. at 05/30/2024 6:46 PM CDT Associated attestation - Logan Borges M.D. - 05/30/2024 6:46 PM CDT I saw and evaluated the patient and participated in the heredia portions of the service. I reviewed thedocumentation of Maria Del Rosario Galeano P.A.-C. and agree with the findings and plan. Manuel Miner is a 78 y.o. 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 He was initiated on androgen deprivation therapy on December 18, 2022 fora planned 12-18 months. He completed ADT with a leuprolide 22.5 mg injection on September 29, 2023. He completed definitive radiation therapy on February 05, 2023. Unfortunately, he developed rectal bleeding that was severe enough that he required a transfusion in November 2023. He has tried mesalamine suppositories without benefit. Most recently he has been doingsucralfate enemas twice daily and is taking oral Trental and vitamin-E. He has had some improvementwith this though he still has spontaneous episodes of bleeding. His hemoglobin is now 8.9 up from 8.2. He has not had a recent transfusion. The patient appears pale. I recommend that the patient proceed colonoscopy in [place] with argon plasma coagulation treat his radiation proctitis. We discussed the fact that this can sometimes take up to 3 treatments to be effective. The patient has family members to attend to including a mother who needs to move to assisted living and a brother who is in hospital. He will continue with sucralfate enemas until we can get this scheduled. He will continue with Trental and vitamin-E. We will recheck labs including a PSA and hemoglobin after he has the colonoscopy. We will refer him to Dr. Brown for assistance for bridging therapy for his warfarin because he does have factor 5 Leiden and bleeds whenever anticoagulati on is discontinued. The patient can contact us in the interim with any questions or concerns. He verbalized satisfaction with this plan. I have spent 15 minutes caring for this patient including qppc-qr-stoa and bgp-ulrq-cb-face time. Signed by: Logan Borges M.D. 05/30/24 6:46 PM CDT [facility] [place] documented in this encounter Miscellaneous Notes * Addendum Note - Risa Smith C.N.AHortencia - 05/30/2024 3:30 PM CDTEncounter addended by: Risa Smith C.NHortenciaAHortencia on: 05/31/2024 7:26 AM Actions taken: Letter saved documented in this encounter Plan of Treatment Upcoming Encounters Date Type Department Care Team (Late st Contact Info) Description 08/01/2024 10:45 AM CASE PLANNER Appointment Division of Gastroenterology in [place], [place] [address] [place] [phone] Maria Del Rosario Galeano P.A.-C., M.S. [address] [place] [phone] 08/25/2024 3:00 PM CASE PLANNER Appointment Department of Radiation Oncology in [place], [place] [address] [place] [phone] Logan Borges M.D. [address] [place] [phone] Scheduled Orders Name Type Priority Associated Diagnoses Orde r Schedule Colonoscopy GI Routine Radiation Therapy Proctitis Expected: 06/24/2024, Expires: 08/30/2025 CBC with Differential, Blood Lab Routine Radiation Therapy Proctitis Expected: 07/04/2024, Expires: 08/30/2025 Scheduled Referrals Name Type Priority Associated Diagnoses Order Schedule Radiation Oncology office visit (clinic) Outpatient Referral Routine Once for 1 Occurrences starting 05/30/2024 until 05/30/2024 Radiation Oncology office visit (clinic) Outpatient Referral Routine Expected: 07/11/2024, Expires: 08/30/2025 documented as of this encounter Visit Diagnoses Diagnosis Primary Malignant Neoplasm Of Prostate (HCC)- Primary Radiation Therapy Proctitis documented in this encounter
--- OUTSIDE RECORDS SUMMARY | 2024-06-30 14:58 | XMS_ITS | Encounter Summary ---
Author Organization [facility] Address [address] [place] [phone] Care Team Providers Care Senior Administrative Services Officer Name Role Phone Unavailable Primary Care Provider Unavailabl e Reason for Referral * Outpatient (Routine) - Closed Specialty Diagnoses / Procedures Referred By Contac t Referred To Contact Radiation Oncology Maria Del Rosario Galeano P.A.-C., M.S. [address] [place] [phone] Phone: tel: fax: Logan Borges M.D. [address] [place] [phone] Phone: tel: fax: Referral ID Status Reason Start Date Expiration Date Visits Re quested Visits Authorized [id number] Closed 03/23/2024 09/22/2025 1 1 * Outpatient (Routine) - Closed Specialty Diagnoses / Procedures Referred By Contac t Referred To Contact Radiation Oncology Meggan Faith APRN, C.N.P., D.N.P. [address] [place] [phone] Phone: tel: fax: Logan Borges M.D. [address] [place] [phone] Phone: tel: fax: Referral ID Status Reason Start Date Expiration Date Visits Re quested Visits Authorized [id number] Closed 12/18/2023 06/18/2025 1 1 Scheduling Instructions After PSA and Testosterone at [facility] Reason for Visit * Outpatient (Routine) - Closed Specialty Diagnoses / Procedures Referred By Katy t Referred To Contact Radiation Oncology Meggan Faith APRN, C.N.P., D.N.P. [address] [place] [phone] Phone: tel: fax: Logan Borges M.D. [address] [place] [phone] Phone: tel: fax: Referral ID Status Reason Start Date Expiration Date Visits Re quested Visits Authorized [id number] Closed 12/18/2023 06/18/2025 1 1 Encounter Details Date Type Department Care Team (Latest Contact Info) Description 03/23/2024 1:30 PM CDT - 04/01/2024 12:42 PM CDT Hospital Encounter Department of Radiation Oncology in [place], [place] [address] [place] [phone] Logan Borges M.D. [address] [place] [phone] Primary Malignant Neoplasm Of Prostate (HCC) (Primary [...] How often do you attend chur or sikh services? More than 4 times per year 10/14/2022 Do you belong to any clubs o r organizations such as synagogue groups, unions, fraternal or athletic groups, or [...] and heating? Not very hard 01/18/2023 [facility] [place] of Occupat ional Health - Occupational Stress [...] your living situation today? I have a [facility] place to live 01/18/2023 Education Answer Date Recorded What is the highest level of school you have completed or the highest degree you have received? Bachelor's degree (e.g., BA, AB, BS) 10/14/2022 Sex and Gender Information Value Date Recorded Sex Assigned at Male 10/14/2022 1:13 PM PALLIATIVE CARE COORDINATOR Legal Sex Male 9:17 PM PALLIATIVE CARE COORDINATOR Gender Identity Male 10/14/2022 1:13 PM PALLIATIVE CARE COORDINATOR Sexual Orientation Straight 10/14/2022 1: 13 PM PALLIATIVE CARE COORDINATOR documented as of this encounter Last Filed Vital Signs Vital Sign Reading Time Taken Comments Blood Pressure 128/64 03/23/2024 1:53 PM CDT Pulse 87 03/23/2024 1:53 PM CDT Temperature 36.3 ??C (97.4 ??F) 03/23/2024 1:53 PM C DT Respiratory Rate - - Oxygen Saturation - - Inhaled Oxygen Concentration - - Weight 73 kg (160 lb 15 oz) 03/23/2024 1:53 PM C DT Height - - Body Mass Index 23.7 06/28/2015 7:51 AM PALLIATIVE CARE COORDINATOR documented in this encounter Medications at Time [...] Take 2.5 mg by mouth daily. 09/04/2022 pentoxifylline (TRENtal) 400 mg ER tablet Take 1 tablet (400 mg total) by mouth 2 (two) times a day with meals. 60 tablet 03/23/2024 04/22/2024 sucralfate 10% enema (100 mg/mL)(20 mL/bottle) Insert 1 enema (20 mL total) into the rectum 2 (two) times a day. 1200 mL 03/23/2024 04/22/2024 vitamin E 180 mg (400 Unit) capsule Take 1 capsule (180 mg total) by mouth 2 (two) times a day. 60 capsule 03/23/2024 04/22/2024 documented as of this encounter Progress Notes * Maria Del Rosario Galeano P.A.-C., M.S. - 03/23/2024 2:00 PM CDT SUBJECTIVE DIAGNOSIS 1. Primary Malignant Neoplasm Of Prostate (HCC) SUPERVISED BY: Logan Borges M.D. ([phone]) HISTORY OF PRESENT ILLNESS Mr. Manuel Miner is a 78-year-old male with high risk prostate cancer. He completed definitive radiation therapy on February [...] A. Prostate, right biopsy: --- Prostate adenocarcinoma, Natick's grade 3 + 4, grade group 2. [...] today with Dr. Borges. 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 He reports continued rectal bleeding occurring every 3-4 days. The bleeding occurs on its own, not associated with a bowel movement. Hereports that the bleeding lasts for one evening and then resolves. He reports increased amounts of blood with the last couple of episodes. He denies pain associated with the bleeding. He reports having two blood transfusions since his last visit here. He reports that he is receiving blood transfusions when his hemoglobin is at 7. He states that his hemoglobin has been as high as 10.6 and most recently was 8.6. He is continuing to use suppositories once daily. He reports small volume bowel movements every other day. He reports stable urination. He commented that Dr. Brown is also trying to lower his blood pressure to see if that will help with the healing. He reports increased fatigue associated with the anemia. PATIENT COMPLETED QUESTIONNAIRES: I-PSS I-PSS Urinary Symptoms Score: 7 I-PSS Quality of Life Score: 2 IIEF-15 Erectile Function:11/20 Orgasmic Function:0 Sexual Desire:10/31 [place] Satisfaction: 015 Overall satisfaction:10/03 Total Score: REVIEW OF SYSTEMS Review of systems was negative except as documented above. PATIENT REPORTED SYMPTOM SCREEN: FATIGUE (Scale: 0 = no fatigue; 10 = worst fatigue you can imagine): 8 PAIN (Scale: 0 = no pain; 10 = worst pain you can imagine): 4 OVERALL QUALITY OF LIFE (Scale: 0 = as bad as can be; 10 = as good as can be): 3 OBJECTIVE BP 128/64 (BP Location: Right arm, Patient Position: Sitting, Cuff Size: Regular) Pulse 87 Temp36.3 ??C (Temporal) Wt 73 kg BMI 23.70 kg/m?? PHYSICAL EXAMINATION General: Alert and oriented, in no apparent distress. ASSESSMENT / PLAN [...] biopsy on December 11, 2023 The patient is continuing to have persistent issues with rectal bleeding related to radiation proctitis. He reports bleeding every 3-4 days and states that the bleeding has been increased with the past couple of episodes. He has required blood transfusions due to the blood loss. His hemoglobin monitoring and transfusions are being done by Dr. Brown as well as prescribing of the suppositories. We discussed the recommendation for a repeat colonoscopy with argon plasma laser coagulation for treatment of radiation proctitis. The patient is on Warfarin and would likely require bridging. Alternatively, we discussed possible increased use of suppositories to twice daily or switching to sucralfate enemas, as documented in Dr. Borges's previous note. We also reviewed the patient's most recent PSA result of less than 0.06 ng/mL and his testosterone total result of 4 ng/dL. He received his final leuprolide 22.5 mg (3 month) leuprolide injection on September 29, 2023 for a total of approximately 12 months of ADT. We discussed continued PSA and testosterone monitoring following radiation therapy and ADT. Dr. Borges recommends repeating lab work in 3 months. The patient would like lab work done at [facility] and I will place these orders. Dr. Borges also met with the patient today, please see his attestation for details. After their discussion, it was agreed to proceed with prescribing sucralfate enemas for the patient. The prescription will be sent to the [facility]. Dr. Borges also recommended prescribing [place] vitamin E. We will then order for a phone call follow-up visit in approximately 3 weeks for re-evaluation of his radiation proctitis. If he has persistent bleeding, Dr. Borges would then recommend colonoscopy with argon plasma laser coagulation to be done in [place]. Dr. Borges plans to reach out to Dr. Brown for coordination of care and discussion of bridging of Warfarin prior to thecolonoscopy. The patient will contact us with questions or concerns. He verbally expressed his understanding of the plan. EDUCATION: Ready to learn, no apparent learning barriers were identified; learning preferences include listening. Explained diagnosis and treatment plan; patient expressed understanding of the content. I personally spent 27 minutes in care of the patient today. Time includes both non face to face andface to face patient care. Signed by: Maria Del Rosario Galeano P.A.-C., M.S. 03/23/2024 2:44 PM CDT [facility] [address] [place] [address] Cosigned by Logan Borges M.D. at 04/01/2024 12:41 PM CDT Associated attestation - Logan Borges M.D. - 04/01/2024 12:41 PM CDT I saw and evaluated the patient and participated in the heredia portions of the service. I reviewed thedocumentation of Maria Del Rosario Galeano P.A.-C. and agree with the findings and plan. The patient appears well on exam. He will continue with treatment as planned. Mr. Manuel Miner is a 78 y.o. 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 He was initiated on androgen deprivation therapy on December 18, 2022for a planned 12-18 months. He completed definitive radiation therapy on February 05, 2023. He returns in 13 month follow-up. Unfortunately, he developed rectal bleeding that was severe enough that he required a transfusion in November. He was managed initially with steroids which had temporary benefit. His primary provider Dr. Brown performed a colonoscopy on December 11, 2023 that revealed inflamed and eroded mucosa in the rectum. A biopsy was negative for malignancy but consistent with radiation proctitis. There was alsoa 2 mm serrated adenoma removed from the descending colon. He subsequently had some improvement after we saw him but now has had recrudescence of bleeding that is again requiring multiple transfusions. He has been using mesalamine suppositories. He now has rectal bleeding every 3-4 days that is not associated with bowel movements. The patient is on warfarin for factor V Leiden and every time he goes off of anticoagulation, he develops blood clots. His PSA is undetectable. I recommend that we proceed now with argon laser plasma coagulation via colonoscopy. I explained that this is standard of care in this setting. I am concerned that the patient is requiring transfusions. I have rarely had that be necessary in the setting of radiation proctitis. The patient however stated that he would like to continue with conservative measures. We will start him on oral vitamin-Eand Trental which I explained he needs to be on for at least 6 months. We will switch to sucralfateenemas twice daily. We will check on his progress by phone in 3 weeks. If he has persistent bleeding, we will order a colonoscopy with argon plasma laser coagulation in [place]. I subsequently spoke with Dr. Brown who agreed with this plan. Dr. Brown also kindly agreed to help us with bridging therapy at the time of colonoscopy should that be necessary. I have spent 20 minutes caring for this patient including aidr-ja-cket and klb-isds-gy-face time. Signed by: Logan Borges M.D. 04/01/24 12:41 PM CDT [facility] documented in this encounter Miscellaneous Notes * Addendum Note - Risa Smith, C.N.A. - 03/23/2024 2:00 PM CDTEncounter addended by: Risa Smith C.N.AHortencia on: 04/04/2024 7:08 AM Actions taken: Letter saved documented in this encounter Plan of Treatment Upcoming Encounters Date Type Department Care Team (Late st Contact Info) Description 08/01/2024 10:45 AM PALLIATIVE CARE COORDINATOR Appointment Division of Gastroenterology in [place], [place] [address] [place] [address] Maria Del Rosario Galeano P.A.-C., M.S. [address] [place] [address] 08/25/2024 3:00 PM PALLIATIVE CARE COORDINATOR Appointment Department of Radiation Oncology in [place], [place] [address] [place] [address] Logan Borges M.D. [address] [place] [address] Scheduled Orders Name Type Priority Associated Diagnoses Orde r Schedule PSA (Prostate-Specific Antigen), Diagnostic Lab Routine Primary Malignant Neoplasm Of Prostate (HCC) Expected: 06/23/2024 (Approximate), Expires: 03/23/2025 Testosterone, Total by Mass Spectrometry, Serum Lab Routine Primary Malignant Neoplasm Of Prostate (HCC) Expected: 06/23/2024, Expires: 06/23/2025 Scheduled Referrals Name Type Priority Associated Diagnoses Order Schedule Radiation Oncology office visit (clinic) Outpatient Referral Routine Once for 1 Occurrences starting 03/23/2024 until 03/23/2024 Radiation Oncology office visit (clinic) Outpatient Referral Routine Expected: 04/13/2024, Expires: 06/23/2025 documented as of this encounter Visit Diagnoses Diagnosis Primary Malignant Neoplasm Of Prostate (HCC)- Primary documented in this encounter
--- OUTSIDE RECORDS SUMMARY | 2024-06-30 14:58 | XMS_ITS ---
Author Organization [facility] Address [address] [place] [address] Care Team Providers Care Billet Recorder Name Role Phone Unavailable Unavailable Unavailable Surgery Details Not on file Complications Check Surgery Details section. Procedure Estimated Blood Loss Check Surgery Details section. Procedure Findings Check Surgery Details section. Procedure Specimens Taken Check Surgery Details section.
--- OUTSIDE RECORDS SUMMARY | 2024-06-30 14:58 | XMS_ITS | Encounter Summary ---
Author Organization [facility] Address [address] [place] [address] Care Team Providers Care Therapeutic Strategy Lead Name Role Phone Unavailable Primary Care Provider Unavailabl e Encounter Details Date Type Department Care Team (Late st Contact Info) Description 06/10/2024 Clinical Communication Department of Radiation Oncology in [place], [place] [address] [place] [phone] Logan Borges M.D. [address] [place] [address] Social History Tobacco Use Types Packs/Day Years [...] any clubs o r organizations such as amish groups, unions, fraternal or athletic groups, or [...] care, and heating? Not very hard 01/18/2023 [facility] of Occupat ional Health - [...] your living situation today? I have a [facility] place to live 01/18/2023 Education Answer Date Recorded What is the highest level of school you have completed or the highest degree you have received? Bachelor's degree (e.g., BA, AB, BS) 10/14/2022 Sex and Gender Information Value Date Recorded Sex Assigned at Male 10/14/2022 1:13 PM SALVAGE MECHANIC Legal Sex Male 9:17 PM SALVAGE MECHANIC Gender Identity Male 10/14/2022 1:13 PM SALVAGE MECHANIC Sexual Orientation Straight 10/14/2022 1: 13 PM SALVAGE MECHANIC documented as of this encounter Miscellaneous Notes * Telephone Encounter - Maria Del Rosario Galeano P.A.-C., M.S. - 06/13/2024 11:35 AM CDT I returned the patient's phone call and spoke to him directly. He wanted to know if a prescription for sucralfate enemas was prescribed by Dr. Borges. I explained that it looks like he has a refillavailable for the medication still, so he can contact the pharmacy for a refill. If the pharmacy needs any additional information from us, they should send it to us directly. He was agreeable to contact the pharmacy for a refill. He had no further questions. Maria Del Rosario Galeano P.A.-C., M.S. * Telephone Encounter - Amanda Dimas - 06/10/2024 2:08 PM CDT After review and clarification the patient is looking to discuss regards the enemas not Golytely. Thanks * Telephone Encounter - Amanda Dimas - 06/10/2024 1:41 PM CDT Refill Medication Request: Medication: Enema polyethylene glycol-electrolytes (Golytely) 236-22.74-6.74 - 5.86 gram solution The patient is currently taking this medication (frequency/dosage): no The patient has 0 days??? worth of medication left. Patient was under the impression that he was going to be getting these until his colonoscopy, not sure what was discussed if someone could either refill it or give him a call. Thanks documented in this encounter Plan of Treatment Upcoming Encounters Date Type Department Care Team (Late st Contact Info) Description 08/01/2024 10:45 AM SALVAGE MECHANIC Appointment Division of Gastroenterology in [place], [place] [address] [place] [address] Maria Del Rosario Galeano P.A.-C., M.S. [address] [place] [phone] 08/25/2024 3:00 PM SALVAGE MECHANIC Appointment Department of Radiation Oncology in [place], [place] [address] [place] [phone] Logan Borges M.D. [address] [place] [address] documented as of this encounter Visit Diagnoses Not on filedocumented in this encounter
--- OUTSIDE RECORDS SUMMARY | 2024-06-30 14:58 | XMS_ITS | Referral Summary ---
Author Organization [facility] Address [address] [place] [address] Care Team Providers Care Mental Health Technician Name Role Phone Unavailable Primary Care Provider Unavailabl e Source Comments Patient records contain information from all sites at [facility]. For routine questions regarding patient records, call [phone] during business hours, M-F 8:00 AM - 5:00 PM Central Time. Record requests for emergency care only can be directed to [phone] at any time.[facility] Encounters Date Type Department Care Team Description 06/10/2024 Clinical Communication Department of Radiation Oncology in [address] [phone] Logan Borges M.D. 05/30/2024 3:10 PM CDT - 05/30/2024 6:46 PM CDT Hospital Encounter Department of Radiation Oncology in [address] [phone] Logan Borges M.D. Primary Malignant Neoplasm Of Prostate (HCC) (Primary Dx); Radiation Therapy Proctitis 04/22/2024 9:24 AM CDT - 04/22/2024 10:42 AM CDT Hospital Encounter Department of Radiation Oncology in [address] [phone] Logan Borges M.D. Primary Malignant Neoplasm Of Prostate (HCC) (Primary Dx); Radiation Therapy Proctitis 03/23/2024 1:30 PM CDT - 04/01/2024 12:42 PM CDT Hospital Encounter Department of Radiation Oncology in [place], [place] [address] [place] [address] Logan Borges M.D. Primary Malignant Neoplasm Of Prostate (HCC) (Primary Dx) from Last 3 Months Allergies Active Allergy Reactions Criticality Noted Date Comments Penicillins Rash 06/28/2015 Rivaroxaban Other (see comments) 06/28/2015 Liver damage Medications warfarin (COUMADIN) 5 mg tablet Take 2.5 [...] Take 1 tablet by mouth daily. Active amLODIPine (Norvasc) 5 mg tablet Take 1 tablet by mouth daily. 03/17/2024 Active pentoxifylline (TRENtal) 400 mg ER tablet Take 1 tablet (400 mg total) by mouth 2 (two) times a day with meals. 60 tablet 5 04/22/2024 Active sucralfate 10% enema (100 mg/mL)(20 mL/bottle) Insert 1 enema (20 mL total) into the rectum 2 (two) times a day. 1200 mL 1 04/28/2024 3:43 PM CDT 04/22/2024 Active vitamin E 180 mg (400 Unit) capsule Take 1 capsule (180 mg total) by mouth 2 (two) times a day. 60 capsule 5 04/28/2024 3:43 PM CDT 04/22/2024 Active polyethylene glycol-electrol ytes (Golytely) 236-22.74-6.74 -5.86 gram solution Take first half of the prep at 4pm the evening before and start second half 3 to 6 hours before and finish 2 hours prior to report time. 4000 mL 05/30/2024 Active Active Problems Problem Noted Date Diagnosed Date Radiation Therapy Proctitis 04/22/2024 Primary Malignant Neoplasm Of Prostate 3 Cancer [...] 09/12/2020,10/22/2010 Tetanus Toxoid, Adsorbed (discontinued) 03/03/1996 influenza trivalent high dos e (HD)(PF) 08/29/2019,06/02/2018,08/26/2017,2015,06/12/2015,06/14/2014 influenza vaccine quad (FLUZONE/FLUARIX) (6 months [...] How often do you attend chur or spiritism services? More than 4 times per year 10/14/2022 Do you belong to any clubs o r organizations such as worship groups, unions, fraternal or athletic groups, or [...] care, and heating? Not very hard 01/18/2023 [facility] [place] of Occupat ional Health - Occupational Stress [...] your living situation today? I have a [facility] place to live 01/18/2023 Education Answer Date Recorded What is the highest level of school you have completed or the highest degree you have received? Bachelor's degree (e.g., BA, AB, BS) 10/14/2022 Sex and Gender Information Value Date Recorded Sex Assigned at Male 10/14/2022 1:13 PM AMBULATORY CARE NURSE Legal Sex Male 9:17 PM AMBULATORY CARE NURSE Gender Identity Male 10/14/2022 1:13 PM AMBULATORY CARE NURSE Sexual Orientation Straight 10/14/2022 1: 13 PM AMBULATORY CARE NURSE Last Filed Vital Signs Vital Sign Reading Time Taken Comments Blood Pressure 140/69 05/30/2024 3:20 PM CDT Pulse 96 05/30/2024 3:20 PM CDT Temperature 36.1 ??C (97 ??F) 05/30/2024 3:20 PM CDT Respiratory Rate - - Oxygen Saturation - - Inhaled Oxygen Concentration - - Weight 76.4 kg (168 lb 6.9 oz) 05/30/2024 3:20 P M CDT Height 175.5 cm (5' 9.09) 06/28/2015 7:51 AM CS T Body Mass Index 24.81 06/28/2015 7:51 AM AMBULATORY CARE NURSE Plan of Treatment Upcoming Encounters Date Type Department Care Team (Late st Contact Info) Description 08/01/2024 10:45 AM AMBULATORY CARE NURSE Appointment Division of Gastroenterology in [place], [place] [address] [place] [address] Maria Del Rosario Galeano P.A.-C., M.S. [address] [place] [phone] 08/25/2024 3:00 PM AMBULATORY CARE NURSE Appointment Department of Radiation Oncology in [place], [place] [address] [place] [address] Logan Borges M.D. [address] [place] [address] Insurance [employer] MED[employer]ARE
--- OUTSIDE RECORDS SUMMARY | 2024-06-30 14:58 | XMS_ITS ---
Author Organization [facility] Address [address] [place] [address] Care Team Providers Care Field Marketing Director Name Role Phone Unavailable Primary Care [...] Radiation Treatments * Plan Last Treated On Days Fractions Treated Prescribed Fraction Dose Prescribed Total Dose [id number] 02/05/2023 36 26 of 26 270 cGy 7,020 cGy Reference Point Last Treated On Days Session Dose Total Dose [id number] 02/05/2023 36 270 cGy 7,020 cGy
--- OUTSIDE RECORDS SUMMARY | 2024-06-30 14:58 | XMS_ITS | Clinical Summary ---
Author Organization [facility] Address [address] [place] [address] Care Team Providers Care Machine Presser Name Role Phone Unavailable Primary Care Provider Unavailabl e Source Comments Patient records contain information from all sites at [facility]. For routine questions regarding patient records, call [phone] during business hours, M-F 8:00 AM - 5:00 PM Central Time. Record requests for emergency care only can be directed to [phone] at any time.[facility] Allergies Active Allergy Reactions Criticality Noted [...] Proctitis 04/22/2024 Primary Malignant Neoplasm Of Prostate Cancer Staging:Clinical stage from 11/12/2022:Stage IIIB(cT3a, cN0, [...] Clinical Communication Department of Radiation Oncology in [place], [place] [address] [place] [address] Logan Borges M.D. 05/30/2024 3:10 PM CDT - 05/30/2024 6:46 PM CDT Hospital Encounter Department of Radiation Oncology in [place], [place] [address] [place] [address] Logan Borges M.D. Primary Malignant Neoplasm Of Prostate (HCC) (Primary Dx); Radiation Therapy Proctitis 04/22/2024 9:24 AM CDT - 04/22/2024 10:42 AM CDT Hospital Encounter Department of Radiation Oncology in [place], [place] [address] [place] [address] Logan Borges M.D. Primary Malignant Neoplasm Of Prostate (HCC) (Primary Dx); Radiation Therapy Proctitis 03/23/2024 1:30 PM CDT - 04/01/2024 12:42 PM CDT Hospital Encounter Department of Radiation Oncology in [place], [place] [address] [place] [address] Logan Borges M.D. Primary Malignant Neoplasm Of Prostate (HCC) (Primary Dx) from Last 3 Months Immunizations Name Administration [...] How often do you attend chur or congregational services? More than 4 times per year 10/14/2022 Do you belong to any clubs o r organizations such as lutheran groups, unions, fraternal or athletic groups, or [...] care, and heating? Not very hard 01/18/2023 [facility] of Occupat ional Health - Occupational Stress [...] your living situation today? I have a [facility] place to live 01/18/2023 Education Answer Date Recorded What is the highest level of school you have completed or the highest degree you have received? Bachelor's degree (e.g., BA, AB, BS) 10/14/2022 Sex and Gender Information Value Date Recorded Sex Assigned at Male 10/14/2022 1:13 PM BELT PICKER Legal Sex Male 9:17 PM BELT PICKER Gender Identity Male 10/14/2022 1:13 PM BELT PICKER Sexual Orientation Straight 10/14/2022 1: 13 PM BELT PICKER Last Filed Vital Signs Vital Sign Reading [...] Body Mass Index 24.81 06/28/2015 7:51 AM BELT PICKER Plan of Treatment Upcoming Encounters Date Type Department Care Team (Late st Contact Info) Description 08/01/2024 10:45 AM BELT PICKER Appointment Division of Gastroenterology in [place], [place] [address] [place] [address] Maria Del Rosario Galeano P.A.-C., M.S. [address] [place] [phone] 08/25/2024 3:00 PM BELT PICKER Appointment Department of Radiation Oncology in [place], [place] [address] [place] [address] Logan Borges M.D. [address] [place] [phone] Health Maintenance Due Date Last Done Comments Hepatitis C Screening 1945 Office Visit for Blood Pressure Check / Re-check 1945 Zoster Vaccines (1 of 2) 11/17/1966 IPV Vaccines (2 of 3 - Adult catch-up series) 03/31/1996 03/03/1996, 03/03/1996 RSV vaccine - (32-36 weeks) or 60+ years (1 - 1-dose 75+ series) 11/17/2022 Depression Screening (Annual PHQ-2) 08/24/2023 Fall Risk Screen (Annual) 08/24/2023 COVID-19 Vaccine ( - 2023- season) 2024 09/04/2022, 06/27/2021, 11/20/2020, Additional history exists Influenza Vaccine (#1) 2024 , 06/03/2022, 06/27/2021, Additional history exists DTaP,Tdap,and Td Vaccines (3 - Td or Tdap) 09/12/2030 09/12/2020, 10/22/2010 Pneumococcal vaccine (65+ years) Completed 02/04/2017, 09/03/2015 HPV Vaccines Aged Out No longer eligi ble based on patient's age to complete this topic Insurance MEDICA MEDICARE
--- OUTSIDE RECORDS SUMMARY | 2024-06-30 14:58 | XMS_ITS | Clinical Summary ---
Author Organization [facility] Address [place], [place] [address] Care Team Providers Care Treasury Director Name Role Phone Pcp, No Primary Care [...] Comments Blood Pressure 121/78 07/08/2017 9:42 AM MOLD MACHINE OPERATOR Pulse 96 07/08/2017 9:42 AM MOLD MACHINE OPERATOR Temperature - - Respiratory Rate - - Oxygen Saturation 98% 07/08/2017 9:42 AM MOLD MACHINE OPERATOR Inhaled Oxygen Concentration - - Weight 75.3 kg (166 lb) 07/08/2017 9:42 AM MOLD MACHINE OPERATOR Height - - Body Mass Index [...] 65+ (1 of 1 - PCV) 013 RSV vaccine for adults or pr egnancy (1 - 1-dose 75+ series) 11/17/2022 COVID-19 vaccine series ( - 2023- season) 4 Influenza for age 65+ 04/24/2024 Care Teams Treasury Director Relationship Specialty Start Date End Date Pcp, No . PCP - General 07/08/17
--- OUTSIDE RECORDS SUMMARY | 2024-06-30 14:58 | XMS_ITS | Encounter Summary ---
Author Organization [facility] Address [address] [place] [address] Care Team Providers Care City Maintenance Manager Name Role Phone Unavailable Primary Care Provider Unavailabl e Reason for Referral * Outpatient (Routine) - Closed Specialty Diagnoses / Procedures Referred By Lanreac t Referred To Contact Radiation Oncology Logan Borges M.D. [address] [place] [address] Phone: tel: fax: [facility] Region Referral ID Status Reason Start Date Expiration Date Visits Re quested Visits Authorized [id number] Closed 04/22/2024 10/22/2025 1 1 Scheduling Instructions CBC at [facility] prior to visit * Outpatient (Routine) - Closed Specialty Diagnoses / Procedures Referred By Contac t Referred To Contact Radiation Oncology Maria Del Rosario Galeano P.A.-C., M.S. [address] [place] [address] Phone: tel: fax: Logan Borges M.D. [address] [place] [address] Phone: tel: fax: Referral ID Status Reason Start Date Expiration Date Visits Re quested Visits Authorized [id number] Closed 03/23/2024 09/22/2025 1 1 Reason for Visit * Outpatient (Routine) - Closed Specialty Diagnoses / Procedures Referred By Katy vergara Referred To Contact Radiation Oncology Maria Del Rosario Galeano P.A.-C., M.S. [address] [place] [phone] Phone: tel: fax: Logan Borges M.D. [address] [place] [phone] Phone: tel: fax: Referral ID Status Reason Start Date Expiration Date Visits Re quested Visits Authorized [id number] Closed 03/23/2024 09/22/2025 1 1 Encounter Details Date Type Department Care Team (Latest Contact Info) Description 04/22/2024 9:24 AM CDT - 04/22/2024 10:42 AM CDT Hospital Encounter Department of Radiation Oncology in [place], [place] [address] [place] [phone] Logan Borges M.D. [address] [place] [phone] Primary Malignant Neoplasm Of Prostate (HCC) (Primary [...] How often do you attend chur or church services? More than 4 times per year 10/14/2022 Do you belong to any clubs o r organizations such as mormonism groups, unions, fraternal or athletic groups, or [...] care, and heating? Not very hard 01/18/2023 [facility] - Occupational Stress Questionnaire Answer Date [...] your living situation today? I have a [facility] place to live 01/18/2023 Education Answer Date Recorded What is the highest level of school you have completed or the highest degree you have received? Bachelor's degree (e.g., BA, AB, BS) 10/14/2022 Sex and Gender Information Value Date Recorded Sex Assigned at Male 10/14/2022 1:13 PM CORRUGATOR MACHINE OPERATOR Legal Sex Male 9:17 PM CORRUGATOR MACHINE OPERATOR Gender Identity Male 10/14/2022 1:13 PM CORRUGATOR MACHINE OPERATOR Sexual Orientation Straight 10/14/2022 1: 13 PM CORRUGATOR MACHINE OPERATOR documented as of this encounter Medications at Time of Discharge [...] day with meals. 60 tablet 5 04/22/2024 sucralfate 10% enema (100 mg/mL)(20 mL/bottle) [...] as of this encounter Progress Notes * Logan Borges M.D. - 04/22/2024 9:30 AM CDT DIAGNOSIS No diagnosis found. REASON FOR ENCOUNTER Telephone call. FRA-YEOD-KY-FACE PHONE VISIT This visit was performed by telephone call today. Call initiation: 9:30 a.m. Call completion: 9:39 a.m. Total duration: 9 INTERVAL HISTORY Manuel Miner is a 78 y.o. 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 He was initiated on androgen deprivation therapy on December 18, 2022 fora planned 12-18 months. He completed definitive radiation therapy on February 05, 2023. Unfortunately, he developed rectal bleeding that was severe enough that he required a transfusion in November 2023. He was managed initially with steroids which had temporary benefit. His primary provider Dr. Brown performed a colonoscopy on December 11, 2023 that revealed inflamed and eroded mucosa inthe rectum. A biopsy was negative for malignancy but consistent with radiation proctitis. There wasalso a 2 mm serrated adenoma removed from the descending colon. He subsequently had some improvement after we saw him but now has had recrudescence of bleeding that is again requiring multiple transfusions. He has been using mesalamine suppositories which resulted in rectal bleeding every 3-4 days that is not associated with bowel movements. We tried to switch to sucralfate enemas twice daily after we saw him on March 23, 2024. We also started him on Trental and vitamin E orally. Unfortunately, he only received the Trental prescription. He does think he has had some improvement with Trental. His last big bleed was a week ago. He has been utilizing mesalamine suppositories intermittently for a week or so after a bleed. He has not been doing them continuously. His hemoglobin has remained low but per his report when last checked it was8.2, so he has not had a recent transfusion. The patient is on warfarin for factor V Leiden and every time he goes off of anticoagulation, he develops blood clots. His PSA is undetectable. ASSESSMENT / PLAN #1 Stage IIIB (cT3a, [...] biopsy on December 11, 2023 The patient would still like to defer a colonoscopy with argon plasma coagulation. I explained to the patient that he needs to have a continuous coating of his rectal mucosa to allow the telangiectasias in his rectum to heal. I sent a prescription for this sucralfate enemas to be done twice daily to the [facility]. He agreed to contact me if he does not receive those in a week. I also refilled his Trental prescription at [facility] pharmacy and sent the vitamin E prescription to the [facility]. I will repeat a hemoglobin at [facility] in 5 weeks and see him a few days later to check on his progress. He agreed to contact me in the interim with questions or concerns. He was appreciative of the call. Signed by: Logan Borges M.D. 04/22/2024 10:38 AM CDT documented in this encounter Plan of Treatment Upcoming Encounters Date Type Department Care Team (Late st Contact Info) Description 08/01/2024 10:45 AM CORRUGATOR MACHINE OPERATOR Appointment Division of Gastroenterology in [place], [place] [address] [place] [address] Maria Del Rosario Galeano P.A.-C., M.S. [address] [place] [address] 08/25/2024 3:00 PM CORRUGATOR MACHINE OPERATOR Appointment Department of Radiation Oncology in [place], [place] [address] [place] [phone] Logan Borges M.D. [address] [place] [address] Scheduled Referrals Name Type Priority Associated Diagnoses Order Schedule Radiation Oncology office visit (clinic) Outpatient Referral Routine Once for 1 Occurrences starting 04/22/2024 until 04/22/2024 Radiation Oncology office visit (clinic) Outpatient Referral Routine Expected: (Approximate), Expires: 04/22/2025 documented as of this encounter Visit Diagnoses Diagnosis Primary Malignant Neoplasm Of Prostate (HCC)- Primary Radiation Therapy Proctitis documented in this encounter
== END 2024-06-30 14:53 | disposition home or self-care (01) ==
PROVIDERS: PCP Internal Medicine; Visit Provider Internal Medicine
DX: D64.9 Anemia, unspecified (principal)
CPT/HCPCS: 82607; 82746; 83540; 83550; 85045

== ENCOUNTER 2024-08-15 11:24 | Outpatient (REF) | payer MEDICARE, OTHER, SELFPAY ==
[2024-08-15 12:26] LABS: PSA Diagnostic* < 0.06 ng/mL (0.10-4.00)
[2024-08-17 02:16] LABS: Testosterone, Adult Male 91 ng/dL (300-720)
== END 2024-08-15 11:25 | disposition home or self-care (01) ==
LOC: NPINS 11:24
PROVIDERS: PCP Internal Medicine; Visit Provider Physician Assistant
DX: C61 Malignant neoplasm of prostate (principal)
CPT/HCPCS: 84153; 84403

== ENCOUNTER 2025-02-09 10:40 | Outpatient (CLI) | payer MEDICARE, OTHER, SELFPAY ==
--- OUTSIDE RECORDS SUMMARY | 2024-12-22 05:45 | XMS_ITS | Encounter Summary ---
Author Name [facility] Address [address] [place] [address] Care Team Providers Care Manager Pet Name Role Phone BONI MAJOR Primary Care Provider SHIRA Alba Unavailable Unavailable Insurance Providers: All historical and current Section Date Range: From patient's date of to the date document was created. This section includes the names of all active insurance providers for the patient. Insurance Provider Type of Coverage Plan Name Start of Policy Coverage End of Policy Coverage Group Number Member ID Insurance Provider's Telephone Number Policy Barney's Name Patient's Relationship to Policy Barney MEDICARE (WNR) MEDICARE (M) PART A Oct 22, 2012 PART A [id number] [phone] Karen MEI PATIENT MEDICARE (WNR) MEDICARE (M) PART B Oct 22, 2012 PART B [id number] [phone] Karen MEI PATIENT Selected Encounter This section includes the information on record at [place] for the Encounter. Date/Time Encounter Type Encounter Description Reason Provider Source December 22, 2024 10:45 AM SIGMOIDOSCOPY W/ABLATION GI ENDOSCOPY ICD-10-CM K55.20 Angiodysplasia of colon without hemorrhage JAGDISH DONATO Jojo Encounter Template Text not used by [place] Assessments - Encounter Diagnoses This section includes the primary and secondary diagnoses documented for the Encounter. Date/Time Primary/Secondary Diagnosis Diagnosis Name Provider Source January 20, 2025 08:42 AM PRIMARY Angiodysplasia of colon without hemorrhage ZAIDA PATE [facility] January 20, 2025 08:42 AM SECONDARY ZAIDA Mai [facility] Plan of Treatment: Future Appointments (+ 6 months) and Future Tests (+/- 45 days) The Plan of Treatment section includes future care activities for the patient from all [place] [facility]. This section includes future appointments and future orders which are active, pending or scheduled. Future Appointments This section includes appointments that were scheduled to occur 6 months from the date of the Encounter, up to a maximum of 20 appointments. The data comes from all [facility]. Appointment Date/Time Appointment Type Appointme nt Facility Name Mar 13, 2025 02:00 PM AMBULATORY - MEDICINE [facility] Active, Pending, and Scheduled Orders This section includes a listing of several types of active, pending, and scheduled orders, including clinic medications orders, diagnostic test orders, procedure orders and consult orders; where the start date of the order is 45 days before the date of the Encounter or 45 days after the date of theEncounter. The data comes from all [facility]. Test Date/Time Test Type Test Details Facility Name Nov 07, 2024 12:00 AM Laboratory - Chemi stry Order CBC BLOOD SP ONCE [facility] Nov 07, 2024 12:00 AM Laboratory - Chemi stry Order IRON GROUP SERUM SP [facility] Lab Results: +/- 30 days of the encounter This section includes the Chemistry and Hematology Lab Results on record with [place] for the patient. Radiology Reports and Pathology Reports are provided separately, in subsequent sections. Lab Results This section contains the Chemistry/Hematology Results that were resulted 30 days before or 30 daysafter the date of the Encounter. Date/Time Source Result Type Result - Unit Interpretation Reference Range Specimen Type Comment December 22, 2024 10:04 AM [facility] PT/INR(ANTICOAG) PLASMA Specimen Type: PLASMA No comment entered. Ordering Provider: JAGDISH DONATO Report Released Date/Time: Nov 11, 2024 09:12 AM Reporting Lab: [facility] [id number] Performing Lab: [facility] [id number] .INR 1.1 0.8-1.1 .PT 13.1 s H 9.4-12.5 Social History: Smoking Status (Most current) and Tobacco Use (All prior to encounter date) This section includes the most current, and the historical, smoking and tobacco- related health factors from the [place] facility where the Encounter took place. Current Smoking Status This section includes the most current smoking, or tobacco-related health factor, from the [place] facility where the Encounter took place. Date/Time Current Smoking Status Comment Facil ity Jun 14, 2024 05:10 PM VA-TOBACCO FORMER USER [facility] Tobacco Use History This section includes a history of the smoking, or tobacco-related health factors, that were collected on or before the date of the Encounter. The data comes from the [place] facility where the Encounter took place. Date/Time Smoking Status/Tobacco Use Comment F acility Jun 14, 2024 05:10 PM VA-TOBACCO QUIT 15 YRS OR MORE [facility] Radiology Reports: +/- 30 days of the encounter Radiology Reports For cases when an order for radiology services may have been completed prior to the date of the Encounter, the report list includes the Radiology Reports that were completed up to 30 days before dateof the Encounter. For cases when an order for radiology services may have been completed after the date of the Encounter, the report list also includes the Radiology Reports that were completed up to30 days after date of the Encounter. The data comes from all [place] treatment facilities. Date/Time Radiology Report Provider Source Dec 14, 2024 12:42 PM US LOWER EXTREMITY VEIN (UNILATERAL) (P): LEESA MEI [id number] -[id number] M Exm Date: DEC 14, 2024@12:42 Req Phys: JEREMY LAI Pat Loc: [facility] ANES 1 PREOP AM (Req'g Loc Img Loc: Ultrasound Imaging Service: [place] [address] (Case [id number] COMPLETE) US EXTREMITY VEINS UNILAT (US Detailed) CPT:70988 Proc Modifiers : RIGHT Reason for Study: R/O DVT Clinical History: Vet w/ hx Factor V Leiden, prior DVTs w/ RIGHT calf swelling x 2 months. Need done prior to 12/22/2024 My pager number on record is: . I confirm that the pager number/cell phone number above is correct for reporting critical results. My correct contact # for critical results is:[phone] Trainees only: Enter your staff provider's info here: LAST CREATININE 1.4 H (09/14/24) Report Status: Verified Date Reported: DEC 14, 2024 Date Verified: DEC 14, 2024 Outcome Analyst E-Sig:/ES/SD MCLAUGHLIN Report: Duplex Ultrasound of the Deep Veins of RIGHT Lower Extremity Technique: Nance-scale evaluation with compression and Doppler assessment of venous system for spontaneous and phasic flow, as well as the presence of distal augmentation. Color flow images obtained as needed. Comparison study: None. History: Right calf swelling x 2 months. History of Factor V Leiden and prior DVTs. Findings: Right leg: The common femoral vein, deep femoral vein, femoral vein and popliteal vein are fully compressible with flow and augmentation. The posterior tibial veins are compressible without evidence for thrombus. The peroneal veins are compressible without evidence of thrombus. Proximal great saphenous vein: fully compressible. Proximal gastrocnemius veins (deep venous system): fully compressible. Left leg: Doppler examination demonstrates compressibility and phasic waveforms in the common femoral vein. Impression: Right leg: No evidence of deep venous thrombosis. Report Sign Date/Time: 12/14/2024 1:17 PM Primary Interpreting Staff: SD MCLAUGHLIN, RADIOLOGIST (Dandre) /SD MELVIN [facility] Encounter Notes: All associated encounter notes This section contains the clinical notes associated to the Encounter. Date/Time Encounter Note(s) Provider Source December 22, 2024 12:19 PM NURSING NOTE: LOCAL TITLE: ALAES NSG IV INSERTION AND MAINTENANCE STANDARD TITLE: NURSING NOTE DATE OF NOTE: DECEMBER 22, 2024@12:19 ENTRY DATE: DECEMBER 22, 2024@12:19:49 AUTHOR: ZAIDA PATE EXP COSIGNER: URGENCY: STATUS: COMPLETED Version 2.2 Charting in accordance with [place] APPROVED YOMBA SHOSHONE STANDARD (ALAES) ACUTE INPATIENT/REHABILITATION NURSING ADMISSION SCREENING, ASSESSMENT, AND STANDARDS OF CARE ======== IV Line Insertion and Maintenance ======== ======== Peripheral IV ======== Line #1: Insertion: Date/Time: December@10:55 Inserted by (name): Diogenes Pate LPN Insertion Aid: Ultrasound guided Location: Right, Forearm Gauge: 20g 1.75 Assessment: Location: Gauge: Dressing Condition: Transparent dressing Site Condition: No redness, swelling, pain Line Status: Capped Flushed Positive blood return /es/ ZAIDA PATE LPN Signed: 12/22/2024 12:20 ZAIDA PATE [facility]
--- OUTSIDE RECORDS SUMMARY | 2024-12-27 19:00 | XMS_ITS | Encounter Summary ---
Author Name [facility] [place] [facility] [place] [facility] [place] Address [address] [place] [address] Care Team Providers Care Product Tester Name Role Phone BONI MAJOR Primary Care [...] PART A Oct 22, 2012 PART A [id number] Karen MEI PATIENT MEDICARE (WNR) MEDICARE (M) PART B Oct 22, 2012 PART B [id number] Karen MEI PATIENT Selected Encounter This section includes the information on record at [place] for the Encounter. Date/Time Encounter Type Encounter Description Reason Pro vider Source December 28, 2024 12:00 AM Outpatient Encounter EVENT (HISTORICAL) IHE Encounter Template Text not used by [place] Plan of Treatment: Future Appointments (+ 6 months) and Future Tests (+/- 45 days) The Plan of Treatment section includes future care activities for the patient from all [facility]. This section includes future appointments and future orders which are active, pending or scheduled. Future Appointments This section includes appointments that were scheduled to occur 6 months from the date of the Encounter, up to a maximum of 20 appointments. The data comes from all [place] treatment facilities. Appointment Date/Time Appointment Type Appointme nt Facility Name Mar 13, 2025 02:00 PM [facility]BULATORY - [facility]ICINE [facility] Lab Results: +/- 30 days of the encounter This section includes the Chemistry and Hematology Lab Results on record with [place] for the patient. Radiology Reports and Pathology Reports are provided separately, in subsequent sections. Lab Results This section contains the Chemistry/Hematology Results that were resulted 30 days before or 30 daysafter the date of the Encounter. Date/Time Source Result Type Result - Unit Interpretation Reference Range Specimen Type Comment December 22, 2024 10:04 AM [facility] PT/INR(ANTICOAG) PLASMA Specimen Type: PLASMA No comment entered. Ordering Provider: JAGDISH DONATO Report Released Date/Time: Nov 11, 2024 09:12 AM Reporting Lab: [facility] [id number] Performing Lab: [facility] [id number] .INR 1.1 0.8-1.1 .PT 13.1 s H 9.4-12.5 Social History: Smoking Status (Most current) and Tobacco Use (All prior to encounter date) This section includes the most current, and the historical, smoking and tobacco- related health factors from the [place] facility where the Encounter took place. Current Smoking Status This section includes the most current smoking, or tobacco-related health factor, from the [place] facility where the Encounter took place. Date/Time Current Smoking Status Comment Ashli ity Jun 14, 2024 05:10 PM [place]-TOBACCO FORMER USER [facility] Tobacco Use History This section includes a history of the smoking, or tobacco-related health factors, that were collected on or before the date of the Encounter. The data comes from the [place] facility where the Encounter took place. Date/Time Smoking Status/Tobacco Use Comment F acility Jun 14, 2024 05:10 PM [place]-TOBAC[place] QUIT 15 YRS OR MORE [facility] Radiology Reports: +/- 30 days of the [...] the Encounter. The data comes from all [place] treatment facilities. Date/Time Radiology Report Provider Source Dec 14, 2024 12:42 PM US LOWER EXTREMITY VEIN (UNILATERAL) (P): LEESA MEI [id number] -1945 M Exm Date: DEC 14, 2024@12:42 Req Phys: JEREMY LAI Loc: [facility] ANES 1 PREOP AM (Req'g Loc Img Loc: Ultrasound Imaging Service: [place] [address] (Case [id number] COMPLETE) US EXTREMITY VEINS UNILAT (US Detailed) CPT:06957 Proc Modifiers : RIGHT Reason for Study: R/O DVT Clinical History: Vet w/ hx Factor V Leiden, prior DVTs w/ RIGHT calf swelling x 2 months. Need done prior to 12/22/2024 My pager number on record is: . I confirm that the pager number/cell phone number above is correct for reporting critical results. My correct contact # for critical results is:[phone] Trainees only: Enter your staff provider's info here: LAST CREATININE 1.4 H (09/14/24) Report Status: Verified Date Reported: DEC 14, 2024 Date Verified: DEC 14, 2024 Teletype Mechanic E-Sig:/ES/SD MCLAUGHLIN Report: Duplex Ultrasound of the [...] PM Primary Interpreting Staff: SD MCLAUGHLIN, RADIOLOGIST (Teletype Mechanic) /SD MELVIN [facility]
--- OUTSIDE RECORDS SUMMARY | 2024-12-30 04:14 | XMS_ITS | Encounter Summary ---
Author Name [facility] [place] [facility] [place] [facility] [place] Address [address] [place] [id number] Care Team Providers Care Insurance Business Analyst Name Role Phone BONI MAJOR Primary Care [...] PART A Oct 22, 2012 PART A [id number] Karen MEI PATIENT MEDICARE (WNR) MEDICARE (M) PART B Oct 22, 2012 PART B [id number] Karen MEI PATIENT Selected Encounter This section includes the information on record at [place] for the Encounter. Date/Time Encounter Type Encounter Description Reason Pro vider Source December 30, 2024 09:14 AM Outpatient Encounter CLINICAL PHARMACY E Encounter Template Text not used by [place] Plan of Treatment: Future Appointments (+ 6 [...] 20 appointments. The data comes from all [place] treatment facilities. Appointment Date/Time Appointment Type Appointme nt Facility Name Mar 13, 2025 02:00 PM [facility]ATORY - [facility]IC[facility] Lab Results: +/- 30 days of the encounter This section includes the Chemistry and Hematology Lab Results on record with [place] for the patient. Radiology Reports and Pathology Reports are provided separately, in subsequent sections. Lab Results This section contains the Chemistry/Hematology Results that were resulted 30 days before or 30 daysafter the date of the Encounter. Date/Time Source Result Type Result - Unit Interpretation Reference Range Specimen Type Comment December 22, 2024 10:04 AM [facility] PT/INR(ANTICOAG) PLASMA Specimen Type: PLASMA No comment entered. Ordering Provider: JAGDISH DONATO Report Released Date/Time: Nov 11, 2024 09:12 AM Reporting Lab: [facility] [id number] Performing Lab: [facility] [id number] .INR 1.1 0.8-1.1 .PT 13.1 s H 9.4-12.5 Social History: Smoking Status (Most current) and Tobacco Use (All prior to encounter date) This section includes the most current, and the historical, smoking and tobacco- related health factors from the [place] facility where the Encounter took place. Current Smoking Status This section includes the most current smoking, or tobacco-related health factor, from the [place] facility where the Encounter took place. Date/Time Current Smoking Status Comment Ashli ity Jun 14, 2024 05:10 PM VA-TOBACCO FORMER USER [facility] Tobacco Use History This section includes a history of the smoking, or tobacco-related health factors, that were collected on or before the date of the Encounter. The data comes from the [place] facility where the Encounter took place. Date/Time Smoking Status/Tobacco Use Comment F acility Jun 14, 2024 05:10 PM [place]-TOBACCO QUIT 15 YRS OR MORE [facility] Radiology Reports: +/- 30 days of the [...] the Encounter. The data comes from all [place] treatment facilities. Date/Time Radiology Report Provider Source Dec 14, 2024 12:42 PM US LOWER EXTREMITY VEIN (UNILATERAL) (P): LEESA MEI [id number] -1945 M Exm Date: DEC 14, 2024@12:42 Req Phys: JEREMY LAI Loc: [facility] ANES 1 PREOP AM (Req'g Loc Img Loc: Ultrasound Imaging Service: [place] [address] (Case [id number] COMPLETE) US EXTREMITY VEINS UNILAT (US Detailed) CPT:00100 Proc Modifiers : RIGHT Reason for Study: R/O DVT Clinical History: Vet w/ hx Factor V Leiden, prior DVTs w/ RIGHT calf swelling x 2 months. Need done prior to 12/22/2024 My pager number on record is: . I confirm that the pager number/cell phone number above is correct for reporting critical results. My correct contact # for critical results is:[phone] Trainees only: Enter your staff provider's info here: LAST CREATININE 1.4 H (09/14/24) Report Status: Verified Date Reported: DEC 14, 2024 Date Verified: DEC 14, 2024 Locomotive Mechanic E-Sig:/ES/SD MCLAUGHLIN Report: Duplex Ultrasound of [...] PM Primary Interpreting Staff: SD MCLAUGHLIN, RADIOLOGIST (Locomotive Mechanic) /SD MELVIN [facility] Encounter Notes: All associated encounter notes This section contains the clinical notes associated to the Encounter. Date/Time Encounter Note(s) Provider Source December 30, 2024 09:14 AM PHARMACY NOTE: LOCAL TITLE: ANTICOAG ENTRY OF OUTSIDE LABS STANDARD TITLE: PHARMACY NOTE DATE OF NOTE: DECEMBER 30, 2024@09:14 ENTRY DATE: DECEMBER 30, 2024@09:14:33 AUTHOR: BENITO REYNOLDS EXP COSIGNER: URGENCY: STATUS: COMPLETED INR: Date: December 28, 2024 Results: 1.4 Location: [facility] /usha/ BENITO REYNOLDS MEDICAL SUPPORT ASSISTAT Signed: 12/30/2024 09:15 Receipt Acknowledged By: 12/30/2024 09:16 /usha/ FREDY NICHOLAS EXHIBITION DESIGNER BENITO REYNOLDS [facility]
--- OUTSIDE RECORDS SUMMARY | 2024-12-30 05:31 | XMS_ITS | Encounter Summary ---
Author Name [facility] [place] [facility] [place] [facility] [place] Address [address] [place] [address] Care Team Providers Care Oil Well Shooter Name Role Phone BONI MAJOR Primary Care [...] PART A Oct 22, 2012 PART A [id number] Karen MEI PATIENT MEDICARE (WNR) MEDICARE (M) PART B Oct 22, 2012 PART B [id number] Karen MEI PATIENT Selected Encounter This section includes the information on record at [place] for the Encounter. Date/Time Encounter Type Encounter Description Reason Provider Source December 30, 2024 10:31 AM MTMS BY PHARM EST 15 MIN TELEPHONE/CORINNE BOWMAN ICD-10-CM Z79.01 [facility]FP (current) use of anticoagulants HELGA SCHMIDT Encounter Template Text not used by [place] Assessments - Encounter Diagnoses This section includes the primary and secondary diagnoses documented for the Encounter. Date/Time Primary/Secondary Diagnosis Diagnosis Name Provider Source December 30, 2024 10:31 AM PRIMARY [facility]FP (current) use of anticoagulants HELGA SCHMIDT [facility] December 30, 2024 10:31 AM SECONDARY Encounter for therapeutic drug level monitoring HELGA SCHMIDT [facility] December 30, 2024 10:31 AM SECONDARY Personal history of other venous thrombosis and embolism HELGA SCHMIDT [facility] December 30, 2024 10:31 AM SECONDARY Personal history of pulmonary embolism HELGA SCHMIDT [facility] Plan of Treatment: Future Appointments (+ 6 months) and Future Tests (+/- 45 days) The Plan of Treatment section includes future care activities for the patient from [facility] [place] [facility]. This section includes future appointments and future orders which are active, pending or scheduled. Future Appointments This section includes appointments that were scheduled to occur 6 months from the date of the Encounter, up to a maximum of 20 appointments. The data comes from all [facility] facilities. Appointment Date/Time Appointment Type Appointme nt Facility Name Mar 13, 2025 02:00 PM AMBULATORY - MEDICINE [facility] Lab Results: +/- 30 days of the encounter This section includes the Chemistry and Hematology Lab Results on record with [place] for the patient. Radiology Reports and Pathology Reports are provided separately, in subsequent sections. Lab Results This section contains the Chemistry/Hematology Results that were resulted 30 days before or 30 daysafter the date of the Encounter. Date/Time Source Result Type Result - Unit Interpretation Reference Range Specimen Type Comment December 22, 2024 10:04 AM [facility] PT/INR(ANTICOAG) PLASMA Specimen Type: PLASMA No comment entered. Ordering Provider: JAGDISH DONATO Report Released Date/Time: Nov 11, 2024 09:12 AM Reporting Lab: [facility] [id number] Performing Lab: [facility] [id number] .INR 1.1 0.8-1.1 .PT 13.1 s H 9.4-12.5 Social History: Smoking Status (Most current) and Tobacco Use (All prior to encounter date) This section includes the most current, and the historical, smoking and tobacco- related health factors from the [place] facility where the Encounter took place. Current Smoking Status This section includes the most current smoking, or tobacco-related health factor, from the [place] facility where the Encounter took place. Date/Time Current Smoking Status Comment Ashli ity Jun 14, 2024 05:10 PM VA-TOBACCO FORMER USER [facility] Tobacco Use History This section includes a history of the smoking, or tobacco-related health factors, that were collected on or before the date of the Encounter. The data comes from the [place] facility where the Encounter took place. Date/Time Smoking Status/Tobacco Use Comment F acility Jun 14, 2024 05:10 PM VA-TOBACCO QUIT 15 YRS OR MORE [facility] Radiology Reports: +/- 30 days of the [...] the Encounter. The data comes from all [place] treatment facilities. Date/Time Radiology Report Provider Source Dec 14, 2024 12:42 PM US LOWER EXTREMITY VEIN (UNILATERAL) (P): SIGIFREDOLEESAYOSI COLON [id number] -1945 M Exm Date: DEC 14, 2024@12:42 Req Phys: JEREMY LAI Loc: [facility] ANES 1 PREOP AM (Req'g Loc Img Loc: Ultrasound Imaging Service: [place] [address] (Case [id number] COMPLETE) US EXTREMITY VEINS UNILAT (US Detailed) CPT:60484 Proc Modifiers : RIGHT Reason for Study: R/O DVT Clinical History: Vet w/ hx Factor V Leiden, prior DVTs w/ RIGHT calf swelling x 2 months. Need done prior to 12/22/2024 My pager number on record is: . I confirm that the pager number/cell phone number above is correct for reporting critical results. My correct contact # for critical results is:[phone] Trainees only: Enter your staff provider's info here: LAST CREATININE 1.4 H (09/14/24) Report Status: Verified Date Reported: DEC 14, 2024 Date Verified: DEC 14, 2024 Lacquer Polisher E-Sig:/ES/SD MCLAUGHLIN Report: Duplex Ultrasound of the [...] PM Primary Interpreting Staff: SD MCLAUGHLIN, RADIOLOGIST (Lacquer Polisher) /SD MELVIN [facility] Encounter Notes: All associated encounter notes This section contains the clinical notes associated to the Encounter. Date/Time Encounter Note(s) Provider Source December 30, 2024 10:31 AM PHARMACY OUTPATIEN T MEDICATION MGT NOTE: LOCAL TITLE: PHARMACY ANTICOAGULATION CLINIC F/U STANDARD TITLE: PHARMACY OUTPATIENT MEDICATION MGT NOTE DATE OF NOTE: DECEMBER 30, 2024@10:31 ENTRY DATE: DECEMBER 30, 2024@10:31:37 AUTHOR: SEAN SCHMIDT EXP COSIGNER: URGENCY: STATUS: COMPLETED PHARMACY ANTICOAGULATION CLINIC F/U Has ADDENDA Warfarin Indication(s): Recurrent VTE - 09/2013: Superficial thrombophlebitis of L groin - 09/2014: RLE DVT and PE - 04/2015: LLE DVT, occurred 5 days after stopping warfarin for prior DVT/PE - 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 Relevant PMH: - Per [place] hematology 06/2015: Hx normal protein C and antithrombin levels, only marginally low protein S level of 65% (while on warfarin) - Additional [place] hypercoag work-up 06/28/2015: Heterozygous FVL, negative prothrombin mutation, negative [id number], negative cardiolipin - Prostate cancer - Prior major bleeds: o Known radiation proctitis o 11/2023: Rectal bleeding r/t radiation proctitis w/ Hgb decline that required a transfusion - Prior anticoagulants: o ~09/2013: Enoxaparin x1 month for SVT o ~09/2014-04/2015: Enoxaparin short-term then changed to rivaroxaban, developed drug-induced hepatitis after 1 day on DOAC and subsequently changed to warfarin x6 months Goal INR range: 2-3 Perioperative interruption history: - 12/2024: Warfarin held x5 days and bridged with ppx LMWH (AC note 12/13/24) Start date: Resumed 04/2015 Anticipated duration: Indefinite - HASBLED extrapolated = age, hx bleed, +/- alcohol = 2-3 - Risk of recurrent VTE (Chest 2016): - Provoked after surgery: 3% in 5 years - Provoked due to non-surgical transient risk factor: 15%/5 years - Unprovoked: 30% in 5 years (continue unless high bleed risk) - Associated with cancer: 15% annual risk - Relative risk of recurrent VTE (Thrombophilia): - Heterozygous Factor V Leiden (FVL) = 1.1 - 1.8 DOAC Assessment (09/19/2024): Hx drug-induced hepatitis w/ prior rivaroxaban. Care Coordination: - Co-managed at [facility] - Local Lab: [facility] PH: [phone] FAX# [phone] ATTN: LAB [phone] [facility] labs approval [id number]: 09/20/24 - 03/07/25 SO faxed 10/21/24 Notes: - Best to call cell number first [phone], but can still try home phone if unable to reach on cell SUBJECTIVE/OBJECTIVE: 12/30/24: Received fax w/ INR result from 12/28/24 at local lab. Plan was to obtain a CBC too. Program Officer spoke w/ local lab, confirmed they received the SO faxed 12/15/24 but CBC was missed, only INR was obtained. payroll technician was going to discuss w/ lab plant operator/shift supervisor, advised new SO faxed if CBC still needed in future. History obtained today from patient at [phone]. Yes: Health changes: - Completed 12/22/24: Colonoscopy at [facility]. Warfarin held x5 days prior and bridged with ppx enoxaparin 40mg daily. See AC note 12/13/24. No: Pending procedures: Yes: Bleeding or thromboembolic signs/symptoms or falls: - R ankle/calf swelling noted at pre-op 12/14/24, US negative for DVT. Today pt reports swelling has improved slightly. - Pt states no rectal bleeding since his colonoscopy. 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 Pt was considering argon plasma coagulation for treatment per local oncology recs but will be transferring care to [facility] GI w/ pending consult for radiation proctitis management. Counseled on ER precautions. Yes: Significant medication changes/new drug interactions: - Continues: o PENTOXIFYLLINE o OTC VITAMIN E (counseled on incr bleed risk) o Ferrous sulfate (may darken stool) o APAP PRN, rare use - Changes: o Reports has been taking hair supplement w/ biotin for months now, not a recent change o Bridging with ppx enoxaparin 40mg once daily, but see dosing discrepancies below No: Dietary changes: - Baseline vit K: Seems overall minimal but admits to inconsistency, reports lettuce every once in a while or sometimes green beans or pea soup on occasion. Reiterated on importance of consistency. Yes: Alcohol/tobacco use: - Baseline alcohol: ~1 beer daily *Today reports quit drinking entirely a couple weeks before his procedure and has not yet resumed drinking - Baseline tobacco: None Yes: Dosing discrepancies: - Warfarin held mary-operatively as directed, resumed at usual dose the morning after the procedure - Used enoxaparin syringes pre-operatively but misunderstood and did not resume enoxaparin syringes post-operatively Warfarin dose: 2.5mg daily (17.5mg/wk); AM Collection INR mg in last 7 days 12/28/2024 local 1.4 12.5 12/22/2024 10:04 PLASM 1.1 held for prx 2024 local 2.3 17.5 10/19/2024 local 2.3 17.5 09/28/2024 10:53 BLOOD 3.4 20 wrong dose 09/14/2024 15:53 PLASM 1.9 17.5 07/2024 2.3 per pt report 17.5 per pt report Other Recent Labs Collection DT Spec WBC HGB HCT PLT MCV 09/14/2024 15:53 BLOOD 6.1 11.2 L 34.7 L 292 96.9 06/08/2024 local per PACT note 8.9 L 05/27/2024 local per PACT note 8.9 L ASSESSMENT/PLAN: INR drawn 2 days ago at local lab, results received today. Subtherapeutic INR likely d/t procedural hold. INR could have trended up a bit more over the past 2 days, but will still opt for boost dose x1 and resume ppx enoxaparin syringes until INR is closer to target range or as clinically indicated. Will also aim to update CBC w/ next INR, pt agreed to remind lab to draw CBC w/ next INR. - Warfarin dose: take extra 2.5mg (total dose 5mg) 12/31/24, then CONTINUE 2.5mg daily (17.5mg/wk) 20mg prior to next INR - Next INR/CBC: 01/02/25 at local lab SAME DAY f/u d/t enoxaparin bridging, but noted there is often a delay to receiving local lab results Separate SO request sent for CBC to be drawn 01/02/25 along with INR Should have 7 enoxaparin syringes remaining at this time - Rx assessed Time spent: 15 minutes Patient education of treatment plan: Patient indicates readiness to learn, verbalizes understanding, agreement and satisfaction with the treatment plan. Denies further questions. /janay SCHMIDT PHARMD CLINICAL PHARMACIST Signed: 12/30/2024 11:08 12/30/2024 ADDENDUM STATUS: COMPLETED Addition to A/P to include enoxaparin recs: - Enoxaparin dose: RESUME 40mg injected under the skin once daily starting 12/30/24 /janay SCHMIDT PHARMD CLINICAL PHARMACIST Signed: 12/30/2024 11:10 SEAN SCHMIDT [facility]
--- OUTSIDE RECORDS SUMMARY | 2025-01-01 19:00 | XMS_ITS | Encounter Summary ---
Author Name [facility] [place] [facility] [place] Organization [facility] [place] Address [address] [place] [address] Care Team Providers Care Special Effects Person Name Role Phone BONI MAJOR Primary Care [...] PART A Oct 22, 2012 PART A [id number] [phone] Karen MEI PATIENT MEDICARE (WNR) MEDICARE (M) PART B Oct 22, 2012 PART B [id number] [phone] Karen MEI PATIENT Selected Encounter This section includes the information on record at [place] for the Encounter. Date/Time Encounter Type Encounter Description Reason Pro vider Source January 02, 2025 12:00 AM Outpatient Encounter EVENT (HISTORICAL) IHE Encounter Template Text not used by [place] Plan of Treatment: Future Appointments (+ 6 [...] 20 appointments. The data comes from all [place] treatment facilities. Appointment Date/Time Appointment Type Appointme nt Facility Name Mar 13, 2025 02:00 PM AMBULATORY - [facility]ICINE [facility] Lab Results: +/- 30 days of the encounter This section includes the Chemistry and Hematology Lab Results on record with [place] for the patient. Radiology Reports and Pathology Reports are provided separately, in subsequent sections. Lab Results This section contains the Chemistry/Hematology Results that were resulted 30 days before or 30 daysafter the date of the Encounter. Date/Time Source Result Type Result - Unit Interpretation Reference Range Specimen Type Comment December 22, 2024 10:04 AM [facility] PT/INR(ANTICOAG) PLASMA Specimen Type: PLASMA No comment entered. Ordering Provider: JAGDISH DONATO Report Released Date/Time: Nov 11, 2024 09:12 AM Reporting Lab: [facility] [id number] Performing Lab: [facility] [id number] .INR 1.1 0.8-1.1 .PT 13.1 s H 9.4-12.5 Social History: Smoking Status (Most current) and Tobacco Use (All prior to encounter date) This section includes the most current, and the historical, smoking and tobacco- related health factors from the [place] facility where the Encounter took place. Current Smoking Status This section includes the most current smoking, or tobacco-related health factor, from the [place] facility where the Encounter took place. Date/Time Current Smoking Status Comment Ashli ity Jun 14, 2024 05:10 PM VA-TOBACCO FORMER USER [facility] Tobacco Use History This section includes a history of the smoking, or tobacco-related health factors, that were collected on or before the date of the Encounter. The data comes from the [place] facility where the Encounter took place. Date/Time Smoking Status/Tobacco Use Comment F acility Jun 14, 2024 05:10 PM [place]-TOBACCO QUIT 15 YRS OR MORE [facility] Radiology Reports: +/- 30 days of [...] the Encounter. The data comes from all [place] treatment facilities. Date/Time Radiology Report Provider Source Dec 14, 2024 12:42 PM US LOWER EXTREMITY VEIN (UNILATERAL) (P): LEESA MEI [id number] -1945 M Exm Date: DEC 14, 2024@12:42 Req Phys: JEREMY LAI Loc: [facility] ANES 1 PREOP AM (Req'g Loc Img Loc: Ultrasound Imaging Service: [place] [address] (Case [id number] COMPLETE) US EXTREMITY VEINS UNILAT (US Detailed) CPT:31263 Proc Modifiers : RIGHT Reason for Study: R/O DVT Clinical History: Vet w/ hx Factor V Leiden, prior DVTs w/ RIGHT calf swelling x 2 months. Need done prior to 12/22/2024 My pager number on record is: . I confirm that the pager number/cell phone number above is correct for reporting critical results. My correct contact # for critical results is:[phone] Trainees only: Enter your staff provider's info here: LAST CREATININE 1.4 H (09/14/24) Report Status: Verified Date Reported: DEC 14, 2024 Date Verified: DEC 14, 2024 Radio Sales Account Executive E-Sig:/ES/SD MCLAUGHLIN Report: Duplex Ultrasound of the [...] PM Primary Interpreting Staff: [place] MCLAUGHLIN, RADIOLOGIST (Radio Sales Account Executive) /SD MELVIN [facility]
--- OUTSIDE RECORDS SUMMARY | 2025-01-02 07:13 | XMS_ITS | Encounter Summary ---
Author Name [facility] [place] [facility] [place] [facility] [place] Address [address] [place] [address] Care Team Providers Care Director Peoplesoft Name Role Phone BONI MAJOR Primary Care [...] PART A Oct 22, 2012 PART A [id number] Karen MEI PATIENT MEDICARE (WNR) MEDICARE (M) PART B Oct 22, 2012 PART B [id number] [phone] Karen MEI PATIENT Selected Encounter This section includes the information on record at [place] for the Encounter. Date/Time Encounter Type Encounter Description Reason Provider Source January 02, 2025 12:13 PM MTMS BY PHARM EST 15 MIN TELEPHONE/CORINNE BOWMAN ICD-10-CM Z79.01 nursing home (current) use of anticoagulants LM GOLDSMITH Encounter Template Text not used by CT Assessments - Encounter Diagnoses This section includes the primary and secondary diagnoses documented for the Encounter. 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 This section includes future appointments and future orders which are active, pending or scheduled. Future Appointments This section includes appointments that were scheduled to occur 6 months from the date of the Encounter, up to a maximum of 20 appointments. The data comes from all [place] treatment facilities. Appointment Date/Time Appointment Type Appointme nt Facility Name Mar 13, 2025 02:00 PM AMBULATORY - MEDICINE [facility] Lab Results: +/- 30 days of the encounter This section includes the Chemistry and Hematology Lab Results on record with CT for the patient. Radiology Reports and Pathology Reports are provided separately, in subsequent sections. Lab Results This section contains the Chemistry/Hematology Results that were resulted 30 days before or 30 daysafter the date of the Encounter. Date/Time Source Result Type Result - Unit Interpretation Reference Range Specimen Type Comment December 22, 2024 10:04 AM [facility] PT/INR(ANTICOAG) PLASMA Specimen Type: PLASMA No comment entered. Ordering Provider: JAGDISH DONATO Report Released Date/Time: Nov 11, 2024 09:12 AM Reporting Lab: [facility] [id number] Performing Lab: [facility] [id number] .INR 1.1 0.8-1.1 .PT 13.1 s H 9.4-12.5 Social History: Smoking Status (Most current) and Tobacco Use (All prior to encounter date) This section includes the most current, and the historical, smoking and tobacco- related health factors from the [place] facility where the Encounter took place. Current Smoking Status This section includes the most current smoking, or tobacco-related health factor, from the [place] facility where the Encounter took place. Date/Time Current Smoking Status Comment Ashli denise Jun 14, 2024 05:10 PM VA-TOBACCO FORMER USER [facility] Tobacco Use History This section includes a history of the smoking, or tobacco-related health factors, that were collected on or before the date of the Encounter. The data comes from the [place] facility where the Encounter took place. Date/Time Smoking Status/Tobacco Use Comment Rom gautam Jun 14, 2024 05:10 PM VA-TOBACCO QUIT 15 YRS OR MORE [facility] Radiology Reports: +/- 30 days of [...] the Encounter. The data comes from all CT treatment facilities. Date/Time Radiology Report Provider Source Dec 14, 2024 12:42 PM US LOWER EXTREMITY VEIN (UNILATERAL) (P): LEESA MEI [id number] -1945 M Exm Date: DEC 14, 2024@12:42 Req Phys: JEREMY LAI Pat Loc: [facility] ANES 1 PREOP AM (Req'g Loc Img Loc: Ultrasound Imaging Service: [place] [address] (Case [id number] COMPLETE) US EXTREMITY VEINS UNILAT (US Detailed) CPT:81365 Proc Modifiers : RIGHT Reason for Study: R/O DVT Clinical History: Vet w/ hx Factor V Leiden, prior DVTs w/ RIGHT calf swelling x 2 months. Need done prior to 12/22/2024 My pager number on record is: . I confirm that the pager number/cell phone number above is correct for reporting critical results. My correct contact # for critical results is:[phone] Trainees only: Enter your staff provider's info here: LAST CREATININE 1.4 H (09/14/24) Report Status: Verified Date Reported: DEC 14, 2024 Date Verified: DEC 14, 2024 Ad Terminal Makeup Operator E-Sig:/ES/[place] MCLAUGHLIN Report: Duplex Ultrasound of the [...] PM Primary Interpreting Staff: [place] MCLAUGHLIN, RADIOLOGIST (Ad Terminal Makeup Operator) /SD MELVIN [facility] Encounter Notes: All associated encounter notes This section contains the clinical notes associated to the Encounter. 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 Care Coordination: - Co-managed at [facility] - Local Lab: [facility] PH: [phone] FAX# [phone] ATTN: LAB [phone] [facility] labs approval [id number]: 09/20/24 - 03/07/25 SO faxed 10/21/24 Notes: - Best to call cell number first [phone], but can still try home phone if unable to reach on cell SUBJECTIVE/OBJECTIVE: History obtained today from patient at [phone]. 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 Reiterated on importance of consistency. Yes: Alcohol/tobacco use: - Baseline alcohol: ~1 beer daily *reports quit drinking entirely a couple weeks before his procedure and has not yet resumed drinking - Baseline tobacco: None No: Dosing discrepancies: - took extra 2.5mg (total dose 5mg) 12/31/24 Warfarin dose: 2.5mg daily (17.5mg/wk); AM Collection INR mg in last 7 days 01/02/2025 local 2.0 20 extra dose after hold 12/28/2024 local 1.4 12.5 12/22/2024 10:04 PLASM [...] local per PACT note 8.9 L ASSESSMENT/PLAN: Therapeutic INR following boost dose after holding for procedure. CBC not obtained. Recommend rechallenge current dose. - Warfarin dose: CONTINUE 2.5mg daily (17.5mg/wk) - Discontinue enoxaparin - Next INR/CBC: 01/18/25 at local lab - order sent pt will request with next visit Separate SO request sent for CBC to be drawn 01/02/25 along with INR - Rx assessed Time spent: 15 minutes Patient education of treatment plan: Patient indicates readiness to learn, verbalizes understanding, agreement and satisfaction with the treatment plan. Denies further questions. /usha/ LM GOLDSMITH Pharm.D., [facility] Anticoagulation Clinical Pharmacist Signed: 01/03/2025 10:23 01/19/2025 ADDENDUM STATUS: COMPLETED Patient had called back he will go to his Local Lab on 01/25/25. /usha/ BENITO REYNOLDS MEDICAL SUPPORT ASSISTAT Signed: 01/19/2025 10:15 LM GOLDSMITH [facility]
--- OUTSIDE RECORDS SUMMARY | 2025-01-02 07:15 | XMS_ITS | Encounter Summary ---
Author Name [facility] [place] Organization [place] Address [address] [place] [address] Care Team Providers Care Manager Cargo Name Role Phone BONI MAJOR Primary Care [...] PART A Oct 22, 2012 PART A [id number] Karen MEI PATIENT MEDICARE (WNR) MEDICARE (M) PART B Oct 22, 2012 PART B [id number] Karen MEI PATIENT Selected Encounter This section includes the information on record at [place] for the Encounter. Date/Time Encounter Type Encounter Description Reason Pro vider Source January 02, 2025 12:15 PM Outpatient Encounter CLINICAL PHARMACY E Encounter Template Text not used by [place] Plan of Treatment: Future Appointments (+ 6 [...] 20 appointments. The data comes from all [place] treatment facilities. Appointment Date/Time Appointment Type Appointme nt Facility Name Mar 13, 2025 02:00 PM [facility]ATORY - [facility]ICINE [facility] Lab Results: +/- 30 days of the encounter This section includes the Chemistry and Hematology Lab Results on record with [place] for the patient. Radiology Reports and Pathology Reports are provided separately, in subsequent sections. Lab Results This section contains the Chemistry/Hematology Results that were resulted 30 days before or 30 daysafter the date of the Encounter. Date/Time Source Result Type Result - Unit Interpretation Reference Range Specimen Type Comment December 22, 2024 10:04 AM [facility] PT/INR(ANTICOAG) PLASMA Specimen Type: PLASMA No comment entered. Ordering Provider: JAGDISH DONATO Report Released Date/Time: Nov 11, 2024 09:12 AM Reporting Lab: [facility] [id number] Performing Lab: [facility] [id number] .INR 1.1 0.8-1.1 .PT 13.1 s H 9.4-12.5 Social History: Smoking Status (Most current) and Tobacco Use (All prior to encounter date) This section includes the most current, and the historical, smoking and tobacco- related health factors from the [place] facility where the Encounter took place. Current Smoking Status This section includes the most current smoking, or tobacco-related health factor, from the [place] facility where the Encounter took place. Date/Time Current Smoking Status Comment Ashli ity Jun 14, 2024 05:10 PM VA-TOBACCO FORMER USER [facility] Tobacco Use History This section includes a history of the smoking, or tobacco-related health factors, that were collected on or before the date of the Encounter. The data comes from the [place] facility where the Encounter took place. Date/Time Smoking Status/Tobacco Use Comment F acility Jun 14, 2024 05:10 PM [place]-TOBACCO QUIT 15 YRS OR MORE [facility] Radiology Reports: +/- 30 days [...] the Encounter. The data comes from all [place] treatment facilities. Date/Time Radiology Report Provider Source Dec 14, 2024 12:42 PM US LOWER EXTREMITY VEIN (UNILATERAL) (P): LEESA MEI [id number] -1945 M Exm Date: DEC 14, 2024@12:42 Req Phys: JEREMY LAI Loc: [facility] ANES 1 PREOP AM (Req'g Loc Img Loc: Ultrasound Imaging Service: [place] [address] (Case [id number] COMPLETE) US EXTREMITY VEINS UNILAT (US Detailed) CPT:54963 Proc Modifiers : RIGHT Reason for Study: R/O DVT Clinical History: Vet w/ hx Factor V Leiden, prior DVTs w/ RIGHT calf swelling x 2 months. Need done prior to 12/22/2024 My pager number on record is: . I confirm that the pager number/cell phone number above is correct for reporting critical results. My correct contact # for critical results is:[phone] Trainees only: Enter your staff provider's info here: LAST CREATININE 1.4 H (09/14/24) Report Status: Verified Date Reported: DEC 14, 2024 Date Verified: DEC 14, 2024 Special Delivery Mail Carrier E-Sig:/ES/SD MCLAUGHLIN Report: Duplex Ultrasound of the [...] PM Primary Interpreting Staff: [place] MCLAUGHLIN, RADIOLOGIST (Special Delivery Mail Carrier) /SD MELVIN [facility] Encounter Notes: All associated encounter notes This section contains the clinical notes associated to the Encounter. Date/Time Encounter Note(s) Provider Source January 02, 2025 12:15 PM PHARMACY NOTE: LOCAL TITLE: ANTICOAG ENTRY OF OUTSIDE LABS STANDARD TITLE: PHARMACY NOTE DATE OF NOTE: JANUARY 02, 2025@12:15 ENTRY DATE: JANUARY 02, 2025@12:16:02 AUTHOR: BENITO REYNOLDS EXP COSIGNER: URGENCY: STATUS: COMPLETED INR: Date: January 02, 2025 Results: 2.0 Location: [facility] /usha/ BENITO REYNOLDS MEDICAL SUPPORT ASSISTAT Signed: 01/02/2025 12:16 Receipt Acknowledged By: 01/02/2025 13:11 /usha/ JANEEN FARMER CLINICAL TRAFFIC CONTROL SIGNALER BENITO REYNOLDS [facility]
--- OUTSIDE RECORDS SUMMARY | 2025-01-24 19:00 | XMS_ITS | Encounter Summary ---
Author Name [facility] [place] [facility] [place] Organization [place] Address [address] [place] [address] Care Team Providers Care Camera Storage Clerk Name Role Phone BONI MAJOR Primary Care [...] PART A Oct 22, 2012 PART A [id number] Karen MEI PATIENT MEDICARE (WNR) MEDICARE (M) PART B Oct 22, 2012 PART B [id number] Karen MEI PATIENT Selected Encounter This section includes the information on record at [place] for the Encounter. Date/Time Encounter Type Encounter Description Reason Pro vider Source Jan 25, 2025 12:00 AM Outpatient Encounter EVENT (HISTORICAL) IHE Encounter Template Text not used by [place] Plan of Treatment: Future Appointments (+ 6 [...] 20 appointments. The data comes from all [place] treatment facilities. Appointment Date/Time Appointment Type Appointme nt Facility Name Mar 13, 2025 02:00 PM AMBULATORY - MEDICINE [facility] Social History: Smoking Status (Most current) and Tobacco Use (All prior to encounter date) This section includes the most current, and the historical, smoking and tobacco- related health factors from the [place] facility where the Encounter took place. Current Smoking Status This section includes the most current smoking, or tobacco-related health factor, from the [place] facility where the Encounter took place. Date/Time Current Smoking Status Comment Facil ity Jun 14, 2024 05:10 PM VA-TOBACCO FORMER USER [facility] Tobacco Use History This section includes a history of the smoking, or tobacco-related health factors, that were collected on or before the date of the Encounter. The data comes from the [place] facility where the Encounter took place. Date/Time Smoking Status/Tobacco Use Comment F acility Jun 14, 2024 05:10 PM VA-TOBACCO QUIT 15 YRS OR MORE [facility]
--- OUTSIDE RECORDS SUMMARY | 2025-01-25 08:25 | XMS_ITS | Encounter Summary ---
Author Name [facility] [place] Organization [place] Address [address] [place] [address] Care Team Providers Care Furniture Dipper Name Role Phone BONI MAJOR Primary Care [...] PART A Oct 22, 2012 PART A [id number] Karen MEI PATIENT MEDICARE (WNR) MEDICARE (M) PART B Oct 22, 2012 PART B [id number] Karen MEI PATIENT Selected Encounter This section includes the information on record at [place] for the Encounter. Date/Time Encounter Type Encounter Description Reason Pro vider Source Jan 25, 2025 01:25 PM Outpatient Encounter CLINICAL PHARMACY E Encounter Template Text not used by [place] Plan of Treatment: Future Appointments (+ 6 [...] 20 appointments. The data comes from all [place] treatment facilities. Appointment Date/Time Appointment Type Appointme nt Facility Name Mar 13, 2025 02:00 PM [facility] Social History: Smoking Status (Most current) and Tobacco Use (All prior to encounter date) This section includes the most current, and the historical, smoking and tobacco- related health factors from the [place] facility where the Encounter took place. Current Smoking Status This section includes the most current smoking, or tobacco-related health factor, from the [place] facility where the Encounter took place. Date/Time Current Smoking Status Comment Facil ity Jun 14, 2024 05:10 PM VA-TOBACCO FORMER USER [facility] Tobacco Use History This section includes a history of the smoking, or tobacco-related health factors, that were collected on or before the date of the Encounter. The data comes from the [place] facility where the Encounter took place. Date/Time Smoking Status/Tobacco Use Comment F acility Jun 14, 2024 05:10 PM VA-TOBACCO QUIT 15 YRS OR MORE [facility] Encounter Notes: All associated encounter notes This section contains the clinical notes associated to the Encounter. Date/Time Encounter Note(s) Provider Source Jan 25, 2025 01:25 PM PHARMACY NOTE: LOCAL TITLE: ANTICOAG ENTRY OF OUTSIDE LABS STANDARD TITLE: PHARMACY NOTE DATE OF NOTE: JAN 25, 2025@13:25 ENTRY DATE: JAN 25, 2025@13:25:32 AUTHOR: BENITO REYNOLDS EXP COSIGNER: URGENCY: STATUS: COMPLETED INR: Date: January 25, 2025 Results: 2.0 Location: [facility] /usha/ BENITO REYNOLDS MEDICAL SUPPORT ASSISTAT Signed: 01/25/2025 13:26 Receipt Acknowledged By: 01/26/2025 09:13 /usha/ Kamini Fox PHARMACIST BENITO REYNOLDS [facility]
--- OUTSIDE RECORDS SUMMARY | 2025-01-26 11:26 | XMS_ITS | Encounter Summary ---
Author Name [facility] [place] [facility] [place] [facility] [place] Address [address] [place] [address] Care Team Providers Care Channel Man Name Role Phone BONI MAJOR Primary Care [...] PART A Oct 22, 2012 PART A [id number] [phone] Karen MEI PATIENT MEDICARE (WNR) MEDICARE (M) PART B Oct 22, 2012 PART B [id number] Karen MEI PATIENT Selected Encounter This section includes the information on record at [place] for the Encounter. Date/Time Encounter Type Encounter Description Reason Provider Source Jan 26, 2025 04:26 PM MTMS BY AUGUST AVILA 15 MIN TELEPHONE/ANCILL GRACIE ICD-10-CM Z79.01 [facility] (current) use of anticoagulants [facility]EN ARAGON [facility] Encounter Template Text not used by [place] Assessments - Encounter Diagnoses This section includes the primary and secondary diagnoses documented for the Encounter. Date/Time Primary/Secondary Diagnosis Diagnosis Name Provider Source Jan 26, 2025 04:26 PM PRIMARY [facility] (current) use of anticoagulants EILEEN ARAGON IN [facility] Jan 26, 2025 04:26 PM SECONDARY Encounter for therapeutic drug level monitoring EILEEN ARAGON IN [facility] Jan 26, 2025 04:26 PM SECONDARY Personal history of other venous thrombosis and embolism EILEEN ARAGON IN [facility] Plan of Treatment: Future Appointments (+ 6 months) and Future Tests (+/- 45 days) The Plan of Treatment section includes future care activities for the [facility] [place] [facility] This section includes future appointments and future orders which are active, pending or scheduled. Future Appointments This section includes appointments that were scheduled to occur 6 months from the date of the Encounter, up to a maximum of 20 appointments. The data comes from all [facility] facilities. Appointment Date/Time Appointment Type Appointme nt Facility Name Mar 13, 2025 02:00 PM AMBULATORY - MEDICINE [facility] Social History: Smoking Status (Most current) and Tobacco Use (All prior to encounter date) This section includes the most current, and the historical, smoking and tobacco- related health factors from the [place] facility where the Encounter took place. Current Smoking Status This section includes the most current smoking, or tobacco-related health factor, from the [place] facility where the Encounter took place. Date/Time Current Smoking Status Comment Ashli denise Jun 14, 2024 05:10 PM VA-TOBACCO FORMER USER [facility] Tobacco Use History This section includes a history of the smoking, or tobacco-related health factors, that were collected on or before the date of the Encounter. The data comes from the [place] facility where the Encounter took place. Date/Time Smoking Status/Tobacco Use Comment F lotus Jun 14, 2024 05:10 PM [place]-TOBACCO QUIT 15 YRS OR MORE [facility] Encounter Notes: All associated encounter notes This section contains the clinical notes associated to the Encounter. 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 Care Coordination: - Co-managed at [facility] and [facility] - Local Lab: [facility] PH: [phone] Preferred Lab FAX# [phone] [facility] labs approval [id number]: 09/20/24 - 03/07/25 Notes: - Best to call cell number first [phone], but can still try home phone if unable to reach on cell SUBJECTIVE/OBJECTIVE: History obtained today from patient at [phone]. No: Health changes: No: Pending procedures: No: Bleeding or thromboembolic signs/symptoms or falls: - Pt states no rectal bleeding since his colonoscopy 12/22/24. 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 Pt was considering argon plasma coagulation for treatment per local oncology recs but will be transferring care to [facility] w/ pending consult for radiation proctitis management. Counseled on ER precautions. No: Significant medication changes/new drug interactions: - Continues: o PENTOXIFYLLINE o OTC VITAMIN E (counseled on incr bleed risk) o Ferrous sulfate (may darken stool) o APAP PRN, rare use o Hair supplement w/ biotin No: Dietary changes: - Baseline vit K: minimal, occ lettuce, green beans, pea soup, aims for consistency Yes: Alcohol/tobacco use: - Baseline alcohol: ~1 beer daily - Less since 12/22/24 colonoscopy, ~2/past wk but likely to resume baseline - Baseline tobacco: None No: Dosing discrepancies: Warfarin dose: 2.5mg daily (17.5mg/wk); AM Collection INR mg in last 7 days 01/25/2025 local 2.0 17.5 01/02/2025 local 2.0 20 extra dose after [...] 11.2 L 34.7 L 292 96.9 06/08/2024 [facility] per PACT note 8.9 L 05/27/2024 local per PACT note 8.9 L ASSESSMENT/PLAN: Therapeutic INR at lower end of goal. Recheck in 3 weeks. Pt is aware of letters for f/u if INR is in range (newer ELIESER). Have been aiming to recheck hgb d/t intermittent rectal bleeding and recent enoxaparin use. Connected with [facility] lab paint line production supervisor Chata Obando to coordinate care. Updated/confirmed best fax number for lab, lab paint line production supervisor will alert her team to the INR/CBC SO and stated they are familiar with this form. Also counseled pt to request CBC with next INR. - Warfarin dose: CONTINUE 2.5mg daily (17.5mg/wk) - Next INR/CBC: 02/15/25 at local lab *[facility] approved through 03/07/25 - Rx assessed - Faxed INR/CBC SO to [facility] lab's preferred fax [phone] Time spent: 30 minutes Patient Education of Treatment Plan: Patient/caregiver indicates readiness to learn, verbalizes understanding, agreement and satisfaction with the treatment plan. Denies further questions. /usha/ NIKOLAS ARAGON PHARMACIST Signed: 01/26/2025 16:28 NIKOLAS ARAGON [facility]
--- OUTSIDE RECORDS SUMMARY | 2025-02-07 02:35 | XMS_ITS | Continuity of Care Document ---
Author Name [facility] Organization [facility] Care Team Providers Care Sorting Grapple Operator Name Role Phone [facility] Unavailable Unavailable Problems Combined list of problems from Department of [facility] and [facility] facilities. It does not include entries that were removed or entered in error. Problem Status Onset Date Problem Type Date of Resolution Comments Source Anemia Active Condition [facility] Carcinoma of prostate Active Condition Jun 15, 2024 Entered By: ESTER PALACIOS Comment: Managed by [facility] Exposure to potentially hazardous substance (SCT [id number]) Active Condition Aug 29 Entered By: SHIRLEY KIM Comment: Entered automatically through [facility] Problem List documentation program [facility] Factor V Leiden mutation Active Condition Jun 15, 2024 Entered By: ESTER PALACIOS Comment: On Warfarin [facility] Long-term current use of anticoagulant Active Condition [facility] Diagnosis: ICD-10-CM Z79.01 group home (current) use of anticoagulants [facility] Diagnosis: ICD-10-CM K55.20 Angiodysplasia of colon without hemorrhage Active Diagnosis [facility] Diagnosis: ICD-10-CM C61 Malignant neoplasm of prostate Active Diagnosis [facility] Diagnosis: ICD-10-CM Z13.6 Encounter for screening for cardiovascular disorders Active Diagnosis [facility] Diagnosis: ICD-10-CM Z51.81 Encounter for therapeutic drug level monitoring Active Diagnosis [facility] Diagnosis: ICD-10-CM 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 Medication Details Route Status Patient Instructions Prescription Expires Prescription Number Last Dispense Date Ordering Provider Order Date Order Qty Source AMLODIPINE BESYLATE 5MG TAB TAKE ONE TABLET BY MOUTH EVERY MORNING FOR BLOOD PRESSURE ORAL ACTIVE 10/22/2025 [id number] SHIRA PALACIOS 2024 90 [facility] BISACODYL 5MG TAB,EC TAKE TWO TABLETS BY MOUTH ONCE FOR COLON PREP ORAL 12/07/2024 [id number] RISHABH CRUZ LID HASH SALGUERO 2024 2 [facility] ENOXAPARIN 40MG/0.4ML INJ,SYRINGE ,0.4ML INJECT ONE SYRINGEF UL (40MG) UNDER THE SKIN EVERY EVENING TO PREVENT BLOOD CLOTS DIRECTED BY [facility] SUBCUT ANEOUS 01/12/2025 [id number] POEPPING TORRIE L 2024 10 [facility] FERROUS SO4 325MG TAB TAKE ONE TABLET BY MOUTH EVERY DAY FOR ANEMIA ORAL 12/14/2024 [id number] SHIRA PALACIOS N 2024 100 [facility] PEG-3350/EL ECTROLYTES PWDR TAKE ONE CONTAINE R BY MOUTH DIRECTED FOR COLON PREP ORAL DISCONT INUED 12/07/2024 [id number] RISHABH CRUZ LID HASH SALGUERO 2024 1 [facility] PEG-3350/EL ECTROLYTES PWDR TAKE ONE CONTAINE R BY MOUTH DIRECTED FOR COLON PREP NEEDS ADDITION AL JUG FOR EXTENDED PREP. ORAL 12/11/2024 [id number] 5 JOAQUINA DONATO 2024 1 [facility] PENTOXIFYLL INE 400MG TAB,SA TAKE ONE TABLET BY MOUTH TWICE A DAY ORAL ACTIVE SHIRA PALACIOS N 2023 [facility] VITAMIN E CAP,ORAL TAKE EVERY DAY ACTIVE TRUNG SCHMIDT 2024 [facility] WARFARIN NA ([place]) 5MG TAB TAKE THIS MEDICATI ON BY MOUTH EVERY DAY TO TREAT AND/OR PREVENT BLOOD CLOTS [facility] (PHONE: ) PLEAS E PUT ON HOLD - PT WILL CALL WHEN NEEDED DIRECTED BY THE [facility] (PHONE: [phone]) PLEAS E PUT ON HOLD - PT WILL CALL WHEN NEEDED ORAL ACTIVE 09/20/2025 [id number] TRUNG SCHMIDT 2024 50 [facility] Allergies, Adverse Reactions, Alerts Combined list of allergies from 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 It does not include entries that were removed or entered in error. Substance Category Reaction Severity Reaction type Status Date Reported Comments Source PENICILLIN Propensity to adverse reactions to drug (finding) Eruption MILD active 4 [facility] RIVAROXABAN Propensity to adverse reactions to drug (finding) Generalized aches and pains MILD active 4 [facility] Immunizations Combined list of available immunizations from the 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 Immunization Series Date Given Administered By Site Reaction Lot Number CVX Code Drug Mailroom Manager Status Comments Source INFLUENZA, HIGH-DOSE, TRIVALENT, PF 2023 ANTHONY ROWE A LEFT DELTO ID [id number] 135 complet ed [facility]MINIST[facility] INFLUENZA, HIGH-DOSE, QUADRIVALENT, PF 2022 197 complet ed HISTORICA L INFORMATI ON - FROM OTHER [facility], [facility] COVID-19 (PFIZER), MRNA, LNP-S, BIVALENT, PF, 30 MCG/0.3 ML DOSE 2022 300 complet ed HISTORICA L INFORMATI ON - FROM OTHER [facility], [facility] INFLUENZA, HIGH-DOSE, QUADRIVALENT, PF 2021 197 complet ed HISTORICA L INFORMATI ON - FROM OTHER [facility], [facility] COVID-19 (PFIZER), MRNA, LNP-S, PF, 30 MCG/0.3 ML DOSE 2020 208 complet ed HISTORICA L INFORMATI ON - FROM OTHER [facility], [facility] INFLUENZA, HIGH-DOSE, QUADRIVALENT, PF 2020 197 complet ed HISTORICA L INFORMATI ON - FROM OTHER [facility], [facility] COVID-19 (PFIZER), MRNA, LNP-S, PF, 30 MCG/0.3 ML DOSE 2020 208 complet ed HISTORICA L INFORMATI ON - FROM OTHER [facility], [facility] COVID-19 (PFIZER), MRNA, LNP-S, PF, 30 MCG/0.3 ML DOSE 2020 208 complet ed HISTORICA L INFORMATI ON - FROM OTHER REGISTRY, [facility] INFLUENZA, SPLIT VIRUS, QUADRIVALENT, PF 2020 150 complet ed HISTORICA L INFORMATI ON - FROM OTHER REGISTRY, [facility] TDAP 2020 115 complet ed HISTORICA L INFORMATI ON - FROM OTHER REGISTRY, [facility] INFLUENZA, HIGH-DOSE, QUADRIVALENT, PF 2019 197 complet ed HISTORICA L INFORMATI ON - FROM OTHER REGISTRY, [facility] INFLUENZA, HIGH-DOSE, TRIVALENT, PF 2019 135 complet ed HISTORICA L INFORMATI ON - FROM OTHER REGISTRY, [facility] INFLUENZA, HIGH-DOSE, TRIVALENT, PF 2017 135 complet ed HISTORICA L INFORMATI ON - FROM OTHER REGISTRY, [facility] INFLUENZA, HIGH-DOSE, TRIVALENT, PF 2017 135 complet ed HISTORICA L INFORMATI ON - FROM OTHER REGISTRY, [facility] PNEUMOCOCCAL POLYSACCHARID E PPV23 2016 33 complet ed HISTORICA L INFORMATI ON - FROM OTHER REGISTRY, [facility] INFLUENZA, HIGH-DOSE, TRIVALENT, PF 2015 135 complet ed HISTORICA L INFORMATI ON - FROM OTHER REGISTRY, [facility] PNEUMOCOCCAL CONJUGATE PCV 13 2015 133 complet ed HISTORICA L INFORMATI ON - FROM OTHER REGISTRY, [facility] INFLUENZA, HIGH-DOSE, TRIVALENT, PF 2014 135 complet ed HISTORICA L INFORMATI ON - FROM OTHER REGISTRY, [facility] INFLUENZA, HIGH-DOSE, TRIVALENT, PF 2013 135 complet ed HISTORICA L INFORMATI ON - FROM OTHER REGISTRY, [facility] TDAP 2010 115 complet ed HISTORICA L INFORMATI ON - FROM OTHER REGISTRY, [facility] HEP A, UNSPECIFIED FORMULATION 1995 85 complet ed HISTORICA L INFORMATI ON - FROM OTHER REGISTRY, [facility] TETANUS TOXOID, ADSORBED 1995 35 complet ed HISTORICA L INFORMATI ON - FROM OTHER REGISTRY, [facility] TRIVALENT OPV 1995 02 complet ed HISTORICA L INFORMATI ON - FROM OTHER REGISTRY, [facility] Results Combined list of recent chemistry, hematology and other laboratory results from Department of Defense and Veterans Affairs, ranging from 15 months to all on record, depending upon the facility. Order Name Results Value Reference Range Date Interpretation Specimen Comments Source PT/INR(AN TICOAG) INR IN PLATELET POOR PLASMA BY COAGULATION ASSAY 1.1 0.8 - 1.1 12/22 Specimen Type: PLASMA No comment entered. Ordering Provider: JAYSHREE DONATO Report Released Date/Time: Nov 11, 2024 09:12 AM Reporting Lab: [facility] [phone] Performing Lab: [facility] [address] [facility] PT/INR(AN TICOAG) PROTHROMBIN TIME (PT) 13.1 s 9.4 - 12.5 12/22 H Specimen Type: PLASMA No comment entered. Ordering Provider: JAYSHREE DONATO Report Released Date/Time: Nov 11, 2024 09:12 AM Reporting Lab: [facility] [phone] Performing Lab: [facility] [phone] [facility] POC INR(COAGU CHEK) INR IN BLOOD BY COAGULATION ASSAY 3.4 {INR} 0.8 - 1.1 09/28 H Specimen Type: BLOOD No comment entered. Ordering Provider: GAYLA MAJOR Report Released Date/Time: Sep 28, 2024 10:58 AM Reporting Lab: [facility] [phone] Performing Lab: [facility] [phone] [facility] ALBUMIN/C REATININE RATIO URINE CREATININE [MASS/VOLUM E] IN URINE 206.8 mg/dL 58.0 - 161.0 09/14 H Specimen Type: URINE No comment entered. Ordering Provider: SA JASIEL PALACIOS Report Released Date/Time: Sep 14, 2024 03:44 PM Reporting Lab: [facility] [phone] Performing Lab: [facility] [phone] [facility] ALBUMIN/C REATININE RATIO URINE MICROALBUMI N/CREATININ E [MASS RATIO] IN URINE 10.4 mg/g{c reat} <29.9 - 29.9 09/14 Specimen Type: URINE No comment entered. Ordering Provider: SA JASIEL PALACIOS Report Released Date/Time: Sep 14, 2024 03:44 PM Reporting Lab: [facility] [phone] Performing Lab: [facility] [phone] [place] [facility] ALBUMIN/C REATININE RATIO URINE MICROALBUMI N [MASS/VOLUM E] IN URINE 21.6 mg/L <29.9 - 29.9 09/14 Specimen Type: URINE No comment entered. Ordering Provider: SA JASIEL PALACIOS Report Released Date/Time: Sep 14, 2024 03:44 PM Reporting Lab: [facility] [address] Performing Lab: [facility] [address] [place] [facility] BASIC METABOLIC PANEL+MG CREATININE [MASS/VOLUM E] IN SERUM OR PLASMA 1.4 mg/dL 0.7 - 1.2 09/14 H Specimen Type: PLASMA No comment entered. Ordering Provider: SA JASIEL PALACIOS Report Released Date/Time: Sep 14, 2024 03:44 PM Reporting Lab: [facility] [address] Performing Lab: [facility] [phone] [place] [facility] BASIC METABOLIC PANEL+MG UREA NITROGEN [MASS/VOLUM E] IN SERUM OR PLASMA 23 mg/dL 8 - 26 09/14 Specimen Type: PLASMA No comment entered. Ordering Provider: SA JASIEL PALACIOS Report Released Date/Time: Sep 14, 2024 03:44 PM Reporting Lab: [facility] [address] Performing Lab: [facility] [address] [place] [facility] BASIC METABOLIC PANEL+MG GLUCOSE [MASS/VOLUM E] IN SERUM OR PLASMA 96 mg/dL 70 - 100 09/14 Specimen Type: PLASMA No comment entered. Ordering Provider: SA JASIEL PALACIOS Report Released Date/Time: Sep 14, 2024 03:44 PM Reporting Lab: [facility] [phone] Performing Lab: [facility] [address] [place] [facility] BASIC METABOLIC PANEL+MG SODIUM [MOLES/VOLU ME] IN SERUM OR PLASMA 142 mmol/L 136 - 145 09/14 Specimen Type: PLASMA No comment entered. Ordering Provider: SA JASIEL PALACIOS Report Released Date/Time: Sep 14, 2024 03:44 PM Reporting Lab: [facility] [phone] Performing Lab: [facility] [address] [place] [facility] BASIC METABOLIC PANEL+MG POTASSIUM [MOLES/VOLU ME] IN SERUM OR PLASMA 4.0 mmol/L 3.5 - 5.1 09/14 Specimen Type: PLASMA No comment entered. Ordering Provider: SA JASIEL PALACIOS Report Released Date/Time: Sep 14, 2024 03:44 PM Reporting Lab: [facility] [phone] Performing Lab: [facility] [address] [place] [facility] BASIC METABOLIC PANEL+MG CHLORIDE [MOLES/VOLU ME] IN SERUM OR PLASMA 110 mmol/L 98 - 107 09/14 H Specimen Type: PLASMA No comment entered. Ordering Provider: SA JASIEL PALACIOS Report Released Date/Time: Sep 14, 2024 03:44 PM Reporting Lab: [facility] [phone] Performing Lab: [facility] [address] [place] [facility] BASIC METABOLIC PANEL+MG CARBON DIOXIDE, TOTAL [MOLES/VOLU ME] IN SERUM OR PLASMA 24 mmol/L 22 - 29 09/14 Specimen Type: PLASMA No comment entered. Ordering Provider: SA JASIEL PALACIOS Report Released Date/Time: Sep 14, 2024 03:44 PM Reporting Lab: [facility] [address] Performing Lab: [facility] [address] [place] [facility] BASIC METABOLIC PANEL+MG CALCIUM [MASS/VOLUM E] IN SERUM OR PLASMA 9.2 mg/dL 8.4 - 10.2 09/14 Specimen Type: PLASMA No comment entered. Ordering Provider: SA JASIEL PALACIOS Report Released Date/Time: Sep 14, 2024 03:44 PM Reporting Lab: [facility] [phone] Performing Lab: [facility] [address] [place] [facility] BASIC METABOLIC PANEL+MG MAGNESIUM [MASS/VOLUM E] IN SERUM OR PLASMA 2.1 mg/dL 1.6 - 2.6 09/14 Specimen Type: PLASMA No comment entered. Ordering Provider: SA JASIEL PALACIOS Report Released Date/Time: Sep 14, 2024 03:44 PM Reporting Lab: [facility] [address] Performing Lab: [facility] [address] [place] [facility] BASIC METABOLIC PANEL+MG ANION GAP IN SERUM OR PLASMA 8 mmol/L 5 - 15 09/14 Specimen Type: PLASMA No comment entered. Ordering Provider: SA JASIEL PALACIOS Report Released Date/Time: Sep 14, 2024 03:44 PM Reporting Lab: [facility] [address] Performing Lab: [facility] [address] [place] [facility] BASIC METABOLIC PANEL+MG GLOMERULAR FILTRATION RATE/1.73 SQ M.PREDICTED [VOLUME RATE/AREA] IN SERUM, PLASMA OR BLOOD BY CREATININE- BASED FORMULA (CKD-EPI 2020) 52 60 09/14 L Specimen Type: PLASMA No comment entered. Ordering Provider: SA JASIEL PALACIOS Report Released Date/Time: Sep 14, 2024 03:44 PM Reporting Lab: [facility] [address] Performing Lab: [facility] [address] [place] [facility] CBC LEUKOCYTES [#/VOLUME] IN BLOOD BY AUTOMATED COUNT 6.1 4.0 - 11.0 09/14 Specimen Type: BLOOD No comment entered. Ordering Provider: SA JASIEL PALACIOS Report Released Date/Time: Sep 14, 2024 03:44 PM Reporting Lab: [facility] [address] Performing Lab: [facility] [address] [place] [facility] CBC ERYTHROCYTE S [#/VOLUME] IN BLOOD BY AUTOMATED COUNT 3.58 4.60 - 6.20 09/14 L Specimen Type: BLOOD No comment entered. Ordering Provider: SA JASIEL PALACIOS Report Released Date/Time: Sep 14, 2024 03:44 PM Reporting Lab: [facility] [phone] Performing Lab: [facility] [address] [place] [facility] CBC HEMOGLOBIN [MASS/VOLUM E] IN BLOOD 11.2 g/dL 13.5 - 17.9 09/14 L Specimen Type: BLOOD No comment entered. Ordering Provider: SA JASIEL PALACIOS Report Released Date/Time: Sep 14, 2024 03:44 PM Reporting Lab: [facility] [address] Performing Lab: [facility] [address] [place] [facility] CBC HEMATOCRIT [VOLUME FRACTION] OF BLOOD BY AUTOMATED COUNT 34.7 41.0 - 54.0 09/14 L Specimen Type: BLOOD No comment entered. Ordering Provider: SA JASIEL PALACIOS Report Released Date/Time: Sep 14, 2024 03:44 PM Reporting Lab: [facility] [address] Performing Lab: [facility] [address] [place] [facility] CBC MCV [ENTITIC VOLUME] BY AUTOMATED COUNT 96.9 fL 80.0 - 100.0 09/14 Specimen Type: BLOOD No comment entered. Ordering Provider: SA JASIEL PALACIOS Report Released Date/Time: Sep 14, 2024 03:44 PM Reporting Lab: [facility] [address] Performing Lab: [facility] [address] [place] [facility] CBC MCH [ENTITIC MASS] BY AUTOMATED COUNT 31.3 pg 27.0 - 33.0 09/14 Specimen Type: BLOOD No comment entered. Ordering Provider: SA JASIEL PALACIOS Report Released Date/Time: Sep 14, 2024 03:44 PM Reporting Lab: [facility] [address] Performing Lab: [facility] [address] [place] [facility] CBC MCHC [MASS/VOLUM E] BY AUTOMATED COUNT 32.3 g/dL 32.0 - 37.5 09/14 Specimen Type: BLOOD No comment entered. Ordering Provider: SA JASIEL PALACIOS Report Released Date/Time: Sep 14, 2024 03:44 PM Reporting Lab: [facility] [address] Performing Lab: [facility] [address] [place] [facility] CBC PLATELETS [#/VOLUME] IN BLOOD BY AUTOMATED COUNT 292 150 - 400 09/14 Specimen Type: BLOOD No comment entered. Ordering Provider: SA JASIEL PALACIOS Report Released Date/Time: Sep 14, 2024 03:44 PM Reporting Lab: [facility] [address] Performing Lab: [facility] [address] [place] [facility] CBC PLATELET MEAN VOLUME [ENTITIC VOLUME] IN BLOOD BY AUTOMATED COUNT 9.7 fL 9.1 - 13.0 09/14 Specimen Type: BLOOD No comment entered. Ordering Provider: SA JASIEL PALACIOS Report Released Date/Time: Sep 14, 2024 03:44 PM Reporting Lab: [facility] [address] Performing Lab: [facility] [address] [place] [facility] CBC ERYTHROCYTE DISTRIBUTIO N WIDTH [RATIO] BY AUTOMATED COUNT 13.5 11.5 - 14.5 09/14 Specimen Type: BLOOD No comment entered. Ordering Provider: SA JASIEL PALACIOS Report Released Date/Time: Sep 14, 2024 03:44 PM Reporting Lab: [facility] [address] Performing Lab: [facility] [phone] [place] [facility] IRON GROUP IRON [MASS/VOLUM E] IN SERUM OR PLASMA 51 ug/dL 65 - 175 09/14 L Specimen Type: SERUM No comment entered. Ordering Provider: SA JASIEL PALACIOS Report Released Date/Time: Sep 14, 2024 03:44 PM Reporting Lab: [facility] [phone] Performing Lab: [facility] [address] [place] [facility] IRON GROUP IRON BINDING CAPACITY [MASS/VOLUM E] IN SERUM OR PLASMA 421 ug/dL 250 - 425 09/14 Specimen Type: SERUM No comment entered. Ordering Provider: SA JASIEL PALACIOS Report Released Date/Time: Sep 14, 2024 03:44 PM Reporting Lab: [facility] [phone] Performing Lab: [facility] [address] [place] [facility] IRON GROUP FERRITIN [MASS/VOLUM E] IN SERUM OR PLASMA 38.5 ng/mL 21.8 - 274.7 09/14 Specimen Type: SERUM No comment entered. Ordering Provider: SA JASIEL PALACIOS Report Released Date/Time: Sep 14, 2024 03:44 PM Reporting Lab: [facility] [address] Performing Lab: [facility] [address] [place] [facility] IRON GROUP IRON SATURATION 12 20 - 50 09/14 L Specimen Type: SERUM No comment entered. Ordering Provider: SA JASIEL PALACIOS Report Released Date/Time: Sep 14, 2024 03:44 PM Reporting Lab: [facility] [phone] Performing Lab: [facility] [address] [place] [facility] IRON GROUP TRANSFERRIN [MASS/VOLUM E] IN SERUM OR PLASMA 337 mg/dL 163 - 382 09/14 Specimen Type: SERUM No comment entered. Ordering Provider: SA JASIEL PALACIOS Report Released Date/Time: Sep 14, 2024 03:44 PM Reporting Lab: [facility] [address] Performing Lab: [facility] [address] [place] [facility] PSA PROSTATE SPECIFIC AG [MASS/VOLUM E] IN SERUM OR PLASMA 0.01 ng/mL <4.00 - 4.00 09/14 Specimen Type: SERUM No comment entered. Ordering Provider: SA JASIEL PALACIOS Report Released Date/Time: Sep 14, 2024 03:44 PM Reporting Lab: [facility] [address] Performing Lab: [facility] [address] [facility] PT/INR(AN TICOAG) INR IN PLATELET POOR PLASMA BY COAGULATION ASSAY 1.9 0.8 - 1.1 09/14 H Specimen Type: PLASMA No comment entered. Ordering Provider: SA JASIEL PALACIOS Report Released Date/Time: Sep 14, 2024 03:44 PM Reporting Lab: [facility] [address] Performing Lab: [facility] [address] [facility] PT/INR(AN TICOAG) PROTHROMBIN TIME (PT) 22.1 s 9.4 - 12.5 09/14 H Specimen Type: PLASMA No comment entered. Ordering Provider: SA JASIEL PALACIOS Report Released Date/Time: Sep 14, 2024 03:44 PM Reporting Lab: [facility] [address] Performing Lab: [facility] [address] [facility] Vital Signs Combined list of inpatient and outpatient Vital Signs from Department of Defense and Veterans Affairs, ranging from 12 months to all on record, depending upon the facility. Vital Sign Value Date Comments Source SYSTOLIC BLOOD PRESSURE 152 12/14/2024 11:10:03 [facility] DIASTOLIC BLOOD PRESSURE 71 12/14/2024 11:10:03 [facility] PULSE OXIMETRY 95 12/14/2024 11:10:03 [facility] WEIGHT 171.8 12/14/2024 11:10:03 [facility] BMI 25 kg/m2 12/14/2024 11:10:03 [facility] PAIN 0 12/14/2024 11:10:03 [facility] HEIGHT 69 12/14/2024 11:10:03 [facility] TEMPERATURE 97.1 12/14/2024 11:10:03 [facility] PULSE 88 12/14/2024 11:10:03 [facility] RESPIRATION 18 12/14/2024 11:10:03 [facility] SYSTOLIC BLOOD PRESSURE 152 09/14/2024 14:42:54 [facility] DIASTOLIC BLOOD PRESSURE 88 09/14/2024 14:42:54 [facility] PULSE OXIMETRY 97 09/14/2024 14:42:54 [facility] WEIGHT 168 09/14/2024 14:42:54 [facility] BMI 25 kg/m2 09/14/2024 14:42:54 [facility] PAIN 0 09/14/2024 14:42:54 [facility] HEIGHT 68.5 09/14/2024 14:42:54 [facility] TEMPERATURE 97.5 09/14/2024 14:42:54 [facility] PULSE 96 09/14/2024 14:42:54 [facility] RESPIRATION 18 09/14/2024 14:42:54 [facility] SYSTOLIC BLOOD PRESSURE 195 06/15/2024 13:38:13 [facility] DIASTOLIC BLOOD PRESSURE 91 06/15/2024 13:38:13 [facility] PULSE OXIMETRY 98 06/15/2024 13:38:13 [facility] WEIGHT 165 06/15/2024 13:38:13 [facility] BMI 25 kg/m2 06/15/2024 13:38:13 [facility] PAIN 0 06/15/2024 13:38:13 [facility] HEIGHT 68.5 06/15/2024 13:38:13 [facility] TEMPERATURE 97.2 06/15/2024 13:38:13 [facility] PULSE 90 06/15/2024 13:38:13 [facility] RESPIRATION 16 06/15/2024 13:38:13 [place] [facility] Encounters Combined list of: 1) Encounters from [facility] facilities going backup to the last 18 months, not all [facility] inpatient encounters are included; 2) Encounters from the [facility] Defense facilities going backup to 280 months. Location Location Details Encounter Type Encounter Number Reason For Visit Attending Provider ADM Date DC Date Status Disposition Source [place] [facility] Outpatient Encounter [id number] 12/10 [place] [facility] [place] [facility] [place] En[place] [id number] 12/30 [place] [facility] [place] [facility] Out[place] Encounter [id number] 06/14 [place] [facility] [place] [facility] Out[place] Encounter [id number] 06/15 [place] [facility] [place] [facility] OFF[place] O/P [place] 60 MIN [id number] Diagnos is: ICD-10- CM 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 Karen MEDINA H 06/15 [place] [facility] [place] [facility] Outpatient Encounter [id number] 09/14 [place] [facility] [place] [facility] [place] O/P EST MOD 30 MIN [id number] Diagnos is: ICD-10- CM C61 Maligna nt neoplas m of prostat AHMET Miller 09/14 [place] [facility] [place] [facility] [facility] MTMS BY PHARM EST 15 MIN [id number] Diagnos is: ICD-10- 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 CASSIE SCHMIDT 09/15 [place] [facility] [place] [facility] Outpatient Encounter [id number] 09/19 [place] [facility] [place] [facility] MTMS BY PHARM EST 15 MIN [id number] Diagnos is: ICD-10- 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 BRADLEY ARAGON 09/29 [place] [facility] [place] [facility] Outpatient Encounter [id number] 10/07 [place] [facility] [facility] [place] [facility] Outpatient Encounter [id number] 10/11 [place] [facility] [facility] [place] [facility] Outpatient Encounter [id number] 10/19 [place] [facility] [place] [facility] Outpatient Encounter [id number] 10/21 [facility] [place] [facility] SYNCH AUDIO-ONLY EST MOD 30 [id number] Diagnos is: ICD-10- CM D50.0 Iron deficie ncy anemia seconda ry to blood loss (chroni c) BENITO KRAMER 10/21 [facility] [place] [facility] MTMS BY PHARM EST 15 MIN [id number] Diagnos is: ICD-10- CM Z51.81 Encount er for therape utic drug level monitor SIGRID Montesinos 10/21 [facility] [place] [facility] OFFICE O/P NEW MOD 45 MIN [id number] Diagnos is: ICD-10- CM C61 Maligna nt neoplas m of TELMA Genao 11/07 [facility] [place] [facility] Outpatient Encounter [id number] 11/11 [facility] [place] [facility] Outpatient Encounter [id number] 11/16 [facility] [place] [facility] Outpatient Encounter [id number] 11/17 [facility] [place] [facility] Outpatient Encounter [id number] 11/18 [facility] [place] [facility] MTMS BY PHARM EST 15 MIN [id number] Diagnos is: ICD-10- CM Z79.01 group home (curren t) use of anticoa gulants MARIA DOLORES GOLDSMITH 11/18 [facility] [place] [facility] MTMS BY PHARM ADDL 15 MIN [id number] Diagnos is: ICD-10- CM Z79.01 group home (curren t) use of anticoa gulants Jeny OLIVA 12/13 [facility] [place] [facility] ELECTROCAR DIOGRAM REPORT [id number] Diagnos is: ICD-10- CM Z13.6 Encount er for screeni ng for cardiov ascular disorde rs YANDY SANTOS NZI 12/14 [place] [facility] [place] [facility] OFFICE O/P EST MOD 30 MIN [id number] Diagnos is: ICD-10- CM 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 CHINNADURA IJEREMY A 12/14 [place] [facility] [place] [facility] Outpatient Encounter [id number] 12/20 [place] [facility] [facility] [place] [facility] Outpatient Encounter [id number] 12/21 [place] [facility] [place] [facility] Outpatient Encounter [id number] 12/22 [place] [facility] [place] [facility] OFFICE O/P EST HI 40 MIN [id number] Diagnos is: ICD-10- CM 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 ERETH,DIPIKA H 12/22 [place] [facility] [place] [facility] Outpatient Encounter [id number] BART HERZOG 12/22 [place] [facility] [place] [facility] SIGMOIDOSC OPY W/ABLATION [id number] Diagnos is: ICD-10- CM 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 TELMA DONATO 12/22 [place] [facility] [place] [facility] Outpatient Encounter [id number] 12/22 [place] [facility] [place] [facility] Outpatient Encounter [id number] 12/23 [place] [facility] [facility] [place] [facility] Outpatient Encounter [id number] 12/28 [place] [facility] [facility] [place] [facility] Outpatient Encounter [id number] 12/30 [place] [facility] [place] [facility] MTMS BY PHARM EST 15 MIN [id number] Diagnos is: ICD-10- 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 CASSIE SCHMIDT 12/30 [facility] [place] [facility] Outpatient Encounter [id number] 01/02 [facility] [place] [facility] MTMS BY PHARM EST 15 MIN [id number] Diagnos is: ICD-10- 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 MARIA DOLORES GOLDSMITH 01/02 [facility] [place] [facility] Outpatient Encounter [id number] 01/02 [facility] [place] [facility] Outpatient Encounter [id number] 01/25 [facility] [place] [facility] Outpatient Encounter [id number] 01/25 [facility] [place] [facility] MTMS BY PHARM ADDL 15 MIN [id number] Diagnos is: ICD-10- 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 Social History Type Response Date Comment Sour e Tobacco smoking status NHIS FL-TOBACCO FORMER USER 06/14/2024 [facility] History of tobacco use FL-TOBACCO QUIT 1 5 YRS OR MORE 06/14/2024 [facility] Plan of Care List of future care activities from Department of 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 Additional future care activities may be listed in the Assessment and Plan section. Date/Time Care Activity Care Activity Detail Facili ty 03/13/2025 AMBULATORY - MEDICINE AMBULATORY - MEDICI NE [facility]
[2025-02-09 11:13] LABS: Hematocrit 37.8 % (37.0-53.0); Hemoglobin* 12.1 gm/dL (13.5-17.5); Mean Corpuscular HGB Conc 32 gm/dL (32-36); Mean Corpuscular Hemoglobin 29 pg (26-34); Mean Corpuscular Volume 91 fL (80-100); Platelet Count* 239 K/uL (140-440); Red Blood Count 4.16 m/uL (4.30-5.90); White Blood Count* 4.81 K/uL (4.50-11.00)
[2025-02-09 11:17] LABS: Slide Review Reflex No
[2025-02-09 11:34] LABS: INR 1.62 (0.91-1.10); Prothrombin Time 20.2 Seconds
[2025-02-09 12:20] LABS: PSA Diagnostic* < 0.06 ng/mL (0.10-4.00)
--- OUTSIDE RECORDS SUMMARY | 2025-02-10 00:36 | XMS_ITS | Clinical Summary ---
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 Gender Identity Not on file Sexual Orientation Not on file Obstetrics History Last Filed Vital Signs Vital Sign Reading Time Taken Comments Blood Pressure 121/78 07/08/2017 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 Pulse 96 07/08/2017 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 Temperature - - Respiratory Rate - - Oxygen Saturation 98% 07/08/2017 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 Inhaled Oxygen Concentration - - Weight 75.3 kg (166 lb) 07/08/2017 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 Height - - Body Mass Index - - Plan of Treatment Health Maintenance Due Date Last Done Comments Tdap 11/17/1958 Depression screening for age 12+ 1959 BMI (ht and wt on same day) for age 18+ 11/17/1965 Hepatitis C screening for ag e 18-79 11/17/1965 Tetanus booster 1967 Pneumococcal series for age 50+ (1 of 1 - PCV) 11/17/1997 Zoster (shingles) series for age 50+ (1 of 2) 11/17/1997 RSV vaccine for adults or (1 - 1-dose 75+ series) 11/17/2022 COVID-19 vaccine series ( - season) 2024 Influenza Vaccine (Season Ended) 2025 Hepatitis B series for 19+ Aged Out N o longer eligible based on patient's age to complete this topic Insurance [employer] ONLY Care Teams Stamp Collector Relationship Specialty Start Date End Date Pcp, No . PCP - General 07/08/17
[2025-02-10 23:58] LABS: Sex Hormone Binding Globulin 58 nmol/L (19-76); Testosterone, Adult Male 211 ng/dL (300-720); Testosterone, Free Calculation 26 pg/mL (47-244); Testosterone, Percentage Free 1.2 % (1.6-2.9)
== END 2025-02-09 10:41 | disposition home or self-care (01) ==
LOC: CCIC 10:44 → LAB 10:58
PROVIDERS: Physician Assistant; Visit Provider Internal Medicine
DX: C61 Malignant neoplasm of prostate (principal); Z86.718 Personal history of other venous thrombosis and embolism
CPT/HCPCS: 36415; 84153; 84270; 84402; 84403; 85027; 85610

== ENCOUNTER 2025-02-17 13:10 | Outpatient (CLI) | payer MEDICARE, OTHER, SELFPAY ==
--- OUTSIDE RECORDS SUMMARY | 2025-02-14 08:26 | XMS_ITS | Continuity of Care Document ---
Author Name [facility] Organization [facility] Care Team Providers Care English Tutor Name Role Phone [facility] Unavailable Unavailable Problems Combined list of problems from Department of [facility] and [facility] facilities. It does not include entries that were removed or entered in error. Problem Status Onset Date Problem Type Date of Resolution Comments Source Anemia Active Condition [facility] Carcinoma of prostate Active Condition Jun 15, 2024 Entered By: ESTER PALACIOS Comment: Managed by [facility] Exposure to potentially hazardous substance (SCT [id number]) Active Condition Aug 29 Entered By: SHIRLEY KIM Comment: Entered automatically through [facility] Problem List documentation program [facility] Factor V Leiden mutation Active Condition Jun 15, 2024 Entered By: ESTER PALACIOS Comment: On Warfarin [facility] Long-term current use of anticoagulant Active Condition [facility] Diagnosis: ICD-10-CM Z51.81 Encounter for therapeutic drug level monitoring [facility] Diagnosis: ICD-10-CM Z79.01 ocean transportation intermediary (current) use of anticoagulants [facility] Diagnosis: ICD-10-CM K55.20 Angiodysplasia of colon without hemorrhage Active Diagnosis [facility] Diagnosis: ICD-10-CM C61 Malignant neoplasm of prostate Active Diagnosis [facility] Diagnosis: ICD-10-CM Z13.6 Encounter for screening for cardiovascular disorders Active Diagnosis [facility] Diagnosis: ICD-10-CM 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 Medication Details Route Status Patient Instructions Prescription Expires Prescription Number Last Dispense Date Ordering Provider Order Date Order Qty Source AMLODIPINE BESYLATE 5MG TAB TAKE ONE TABLET BY MOUTH EVERY MORNING FOR BLOOD PRESSURE ORAL ACTIVE 10/22/2025 [id number] SHIRA PALACIOS 2024 90 [facility] BISACODYL 5MG TAB,EC TAKE TWO TABLETS BY MOUTH ONCE FOR COLON PREP ORAL 12/07/2024 [id number] 5 RISHABH CRUZ LID HASH SALGUERO 2024 2 [place] [facility] ENOXAPARIN 40MG/0.4ML INJ,SYRINGE ,0.4ML INJECT ONE SYRINGEF UL (40MG) UNDER THE SKIN EVERY EVENING TO PREVENT BLOOD CLOTS [facility] SUBCUT ANEOUS 01/12/2025 [id number] POEPPING TORRIE L 2024 10 [facility] FERROUS SO4 325MG TAB TAKE ONE TABLET BY MOUTH EVERY DAY FOR ANEMIA ORAL 12/14/2024 [id number] 5 SHIRA PALACIOS N 2024 100 [facility]EL ECTROLYTES PWDR TAKE ONE CONTAINE R BY MOUTH DIRECTED FOR COLON PREP ORAL DISCONT INUED 12/07/2024 [id number] 5 RISHABH CRUZ LID HASH SALGUERO 2024 1 [facility] PEG-[facility]/EL ECTROLYTES PWDR TAKE ONE CONTAINE R BY MOUTH DIRECTED FOR COLON PREP NEEDS ADDITION AL JUG FOR EXTENDED PREP. ORAL 12/11/2024 [id number] JOAQUINA DONATO 2024 1 [facility] PENTOXIFYLL INE 400MG TAB,SA TAKE ONE TABLET BY MOUTH TWICE A DAY ORAL ACTIVE SHIRA PALACIOS N 2023 [facility] VITAMIN E CAP,ORAL TAKE EVERY DAY ACTIVE TRUNG SCHMIDT 2024 [facility] WARFARIN NA ([place]) 5MG TAB TAKE THIS MEDICATI ON BY MOUTH EVERY DAY TO TREAT AND/OR PREVENT BLOOD CLOTS [facility] ([facility]ONE: ) PLEAS E PUT ON HOLD - PT WILL CALL WHEN NEEDED DIRECTED BY THE [facility] (PHONE: ) PLEAS E PUT ON HOLD - PT WILL CALL WHEN NEEDED ORAL ACTIVE 09/20/2025 [id number] TRUNG SCHMIDT 2024 50 [facility] Allergies, Adverse Reactions, Alerts Combined list of allergies from 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 It does not include entries that were removed or entered in error. Substance Category Reaction Severity Reaction type Status Date Reported Comments Source PENICILLIN Propensity to adverse reactions to drug (finding) Eruption MILD active 4 [facility] RIVAROXABAN Propensity to adverse reactions to drug (finding) Generalized aches and pains MILD active 4 [facility] Immunizations Combined list of available immunizations from the 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 Immunization Series Date Given Administered By Site Reaction Lot Number CVX Code Drug Operations Liaison Status Comments Source INFLUENZA, HIGH-DOSE, TRIVALENT, PF 2023 ANTHONY ROWE A LEFT DELTO ID [id number] 135 complet ed [facility] INFLUENZA, HIGH-DOSE, QUADRIVALENT, PF 2022 197 complet ed HISTORICA L INFORMATI ON - FROM OTHER [facility], [facility] COVID-19 (PFIZER), MRNA, LNP-S, BIVALENT, PF, 30 MCG/0.3 ML DOSE 2022 300 complet ed HISTORICA L INFORMATI ON - FROM OTHER [facility], [facility] INFLUENZA, HIGH-DOSE, QUADRIVALENT, PF 2021 197 complet ed HISTORICA L INFORMATI ON - FROM OTHER [facility], [facility] COVID-19 (PFIZER), MRNA, LNP-S, PF, 30 MCG/0.3 ML DOSE 2020 208 complet ed HISTORICA L INFORMATI ON - FROM OTHER [facility], [facility] INFLUENZA, HIGH-DOSE, QUADRIVALENT, PF 2020 197 complet ed HISTORICA L INFORMATI ON - FROM OTHER [facility], [facility] COVID-19 (PFIZER), MRNA, LNP-S, PF, 30 MCG/0.3 ML DOSE 2020 208 complet ed HISTORICA L INFORMATI ON - FROM OTHER [facility], [facility] COVID-19 (PFIZER), MRNA, LNP-S, PF, 30 MCG/0.3 ML DOSE 2020 208 complet ed HISTORICA L INFORMATI ON - FROM OTHER REGISTRY, [facility] INFLUENZA, SPLIT VIRUS, QUADRIVALENT, PF 2020 150 complet ed HISTORICA L INFORMATI ON - FROM OTHER REGISTRY, [facility] TDAP 2020 115 complet ed HISTORICA L INFORMATI ON - FROM OTHER REGISTRY, [facility] INFLUENZA, HIGH-DOSE, QUADRIVALENT, PF 2019 197 complet ed HISTORICA L INFORMATI ON - FROM OTHER REGISTRY, [facility] INFLUENZA, HIGH-DOSE, TRIVALENT, PF 2019 135 complet ed HISTORICA L INFORMATI ON - FROM OTHER REGISTRY, [facility] INFLUENZA, HIGH-DOSE, TRIVALENT, PF 2017 135 complet ed HISTORICA L INFORMATI ON - FROM OTHER REGISTRY, [facility] INFLUENZA, HIGH-DOSE, TRIVALENT, PF 2017 135 complet ed HISTORICA L INFORMATI ON - FROM OTHER REGISTRY, [facility] PNEUMOCOCCAL POLYSACCHARID E PPV23 2016 33 complet ed HISTORICA L INFORMATI ON - FROM OTHER REGISTRY, [facility] INFLUENZA, HIGH-DOSE, TRIVALENT, PF 2015 135 complet ed HISTORICA L INFORMATI ON - FROM OTHER REGISTRY, [facility] PNEUMOCOCCAL CONJUGATE PCV 13 2015 133 complet ed HISTORICA L INFORMATI ON - FROM OTHER REGISTRY, [facility] INFLUENZA, HIGH-DOSE, TRIVALENT, PF 2014 135 complet ed HISTORICA L INFORMATI ON - FROM OTHER REGISTRY, [facility] INFLUENZA, HIGH-DOSE, TRIVALENT, PF 2013 135 complet ed HISTORICA L INFORMATI ON - FROM OTHER REGISTRY, [facility] TDAP 2010 115 complet ed HISTORICA L INFORMATI ON - FROM OTHER REGISTRY, [facility] HEP A, UNSPECIFIED FORMULATION 1995 85 complet ed HISTORICA L INFORMATI ON - FROM OTHER REGISTRY, [facility] TETANUS TOXOID, ADSORBED 1995 35 complet ed HISTORICA L INFORMATI ON - FROM OTHER REGISTRY, [facility] TRIVALENT OPV 1995 02 complet ed HISTORICA L INFORMATI ON - FROM OTHER REGISTRY, [facility] Results Combined list of recent chemistry, hematology [...] Nov 11, 2024 09:12 AM Reporting Lab: [facility] [address] Performing Lab: [facility] [address] [facility] PT/INR(AN TICOAG) PROTHROMBIN TIME (PT) 13.1 s 9.4 - 12.5 12/22 H Specimen Type: PLASMA No comment entered. Ordering Provider: JAYSHREE DONATO Report Released Date/Time: Nov 11, 2024 09:12 AM Reporting Lab: [facility] [address] Performing Lab: [facility] [address] [facility] POC INR(COAGU CHEK) INR IN BLOOD BY COAGULATION ASSAY 3.4 {INR} 0.8 - 1.1 09/28 H Specimen Type: BLOOD No comment entered. Ordering Provider: GAYLA MAJOR Report Released Date/Time: Sep 28, 2024 10:58 AM Reporting Lab: [facility] [address] Performing Lab: [facility] [address] [facility] ALBUMIN/C REATININE RATIO URINE CREATININE [MASS/VOLUM E] IN URINE 206.8 mg/dL 58.0 - 161.0 09/14 H Specimen Type: URINE No comment entered. Ordering Provider: SA JASIEL PALACIOS Report Released Date/Time: Sep 14, 2024 03:44 PM Reporting Lab: [facility] [address] Performing Lab: [facility] [address] [facility] ALBUMIN/C REATININE RATIO URINE MICROALBUMI N/CREATININ E [MASS RATIO] IN URINE 10.4 mg/g{c reat} <29.9 - 29.9 09/14 Specimen Type: URINE No comment entered. Ordering Provider: SA JASIEL PALACIOS Report Released Date/Time: Sep 14, 2024 03:44 PM Reporting Lab: [facility] [address] Performing Lab: [facility] [address] [facility] ALBUMIN/C REATININE RATIO URINE MICROALBUMI N [MASS/VOLUM E] IN URINE 21.6 mg/L <29.9 - 29.9 09/14 Specimen Type: URINE No comment entered. Ordering Provider: SA JASIEL PALACIOS Report Released Date/Time: Sep 14, 2024 03:44 PM Reporting Lab: [facility] [address] Performing Lab: [facility] [address] [facility] BASIC METABOLIC PANEL+MG CREATININE [MASS/VOLUM E] IN SERUM OR PLASMA 1.4 mg/dL 0.7 - 1.2 09/14 H Specimen Type: PLASMA No comment entered. Ordering Provider: SA JASIEL PALACIOS Report Released Date/Time: Sep 14, 2024 03:44 PM Reporting Lab: [facility] [address] Performing Lab: [facility] [address] [facility] BASIC METABOLIC PANEL+MG UREA NITROGEN [MASS/VOLUM E] IN SERUM OR PLASMA 23 mg/dL 8 - 26 09/14 Specimen Type: PLASMA No comment entered. Ordering Provider: SA JASIEL PALACIOS Report Released Date/Time: Sep 14, 2024 03:44 PM Reporting Lab: [facility] [address] Performing Lab: [facility] [address] [facility] BASIC METABOLIC PANEL+MG GLUCOSE [MASS/VOLUM E] IN SERUM OR PLASMA 96 mg/dL 70 - 100 09/14 Specimen Type: PLASMA No comment entered. Ordering Provider: SA JASIEL PALACIOS Report Released Date/Time: Sep 14, 2024 03:44 PM Reporting Lab: [facility] [address] Performing Lab: [facility] [address] [facility] BASIC METABOLIC PANEL+MG SODIUM [MOLES/VOLU ME] IN SERUM OR PLASMA 142 mmol/L 136 - 145 09/14 Specimen Type: PLASMA No comment entered. Ordering Provider: SA JASIEL PALACIOS Report Released Date/Time: Sep 14, 2024 03:44 PM Reporting Lab: [facility] [address] Performing Lab: [facility] [address] [facility] BASIC METABOLIC PANEL+MG POTASSIUM [MOLES/VOLU ME] IN SERUM OR PLASMA 4.0 mmol/L 3.5 - 5.1 09/14 Specimen Type: PLASMA No comment entered. Ordering Provider: SA JASIEL PALACIOS Report Released Date/Time: Sep 14, 2024 03:44 PM Reporting Lab: [facility] [address] Performing Lab: [facility] [address] [facility] BASIC METABOLIC PANEL+MG CHLORIDE [MOLES/VOLU ME] IN SERUM OR PLASMA 110 mmol/L 98 - 107 09/14 H Specimen Type: PLASMA No comment entered. Ordering Provider: SA JASIEL PALACIOS Report Released Date/Time: Sep 14, 2024 03:44 PM Reporting Lab: [facility] [address] Performing Lab: [facility] [address] [facility] BASIC METABOLIC PANEL+MG CARBON DIOXIDE, TOTAL [MOLES/VOLU ME] IN SERUM OR PLASMA 24 mmol/L 22 - 29 09/14 Specimen Type: PLASMA No comment entered. Ordering Provider: SA JASIEL PALACIOS Report Released Date/Time: Sep 14, 2024 03:44 PM Reporting Lab: [facility] [address] Performing Lab: [facility] [address] [facility] BASIC METABOLIC PANEL+MG CALCIUM [MASS/VOLUM E] IN SERUM OR PLASMA 9.2 mg/dL 8.4 - 10.2 09/14 Specimen Type: PLASMA No comment entered. Ordering Provider: SA JASIEL PALACIOS Report Released Date/Time: Sep 14, 2024 03:44 PM Reporting Lab: [facility] [address] Performing Lab: [facility] [address] [facility] BASIC METABOLIC PANEL+MG MAGNESIUM [MASS/VOLUM E] IN SERUM OR PLASMA 2.1 mg/dL 1.6 - 2.6 09/14 Specimen Type: PLASMA No comment entered. Ordering Provider: SA JASIEL PALACIOS Report Released Date/Time: Sep 14, 2024 03:44 PM Reporting Lab: [facility] [address] Performing Lab: [facility] [address] [facility] BASIC METABOLIC PANEL+MG ANION GAP IN SERUM OR PLASMA 8 mmol/L 5 - 15 09/14 Specimen Type: PLASMA No comment entered. Ordering Provider: SA JASIEL PALACIOS Report Released Date/Time: Sep 14, 2024 03:44 PM Reporting Lab: [facility] [address] Performing Lab: [facility] [address] [facility] BASIC METABOLIC PANEL+MG GLOMERULAR FILTRATION RATE/1.73 SQ M.PREDICTED [VOLUME RATE/AREA] IN SERUM, PLASMA OR BLOOD BY CREATININE- BASED FORMULA (CKD-EPI 2020) 52 60 09/14 L Specimen Type: PLASMA No comment entered. Ordering Provider: SA JASIEL PALACIOS Report Released Date/Time: Sep 14, 2024 03:44 PM Reporting Lab: [facility] [address] Performing Lab: [facility] [address] [facility] CBC LEUKOCYTES [#/VOLUME] IN BLOOD BY AUTOMATED COUNT 6.1 4.0 - 11.0 09/14 Specimen Type: BLOOD No comment entered. Ordering Provider: SA JASIEL PALACIOS Report Released Date/Time: Sep 14, 2024 03:44 PM Reporting Lab: [facility] [address] Performing Lab: [facility] [address] [facility] CBC ERYTHROCYTE S [#/VOLUME] IN BLOOD BY AUTOMATED COUNT 3.58 4.60 - 6.20 09/14 L Specimen Type: BLOOD No comment entered. Ordering Provider: SA JASIEL PALACIOS Report Released Date/Time: Sep 14, 2024 03:44 PM Reporting Lab: [facility] [address] Performing Lab: [facility] [address] [facility] CBC HEMOGLOBIN [MASS/VOLUM E] IN BLOOD 11.2 g/dL 13.5 - 17.9 09/14 L Specimen Type: BLOOD No comment entered. Ordering Provider: SA JASIEL PALACIOS Report Released Date/Time: Sep 14, 2024 03:44 PM Reporting Lab: [facility] [address] Performing Lab: [facility] [address] [facility] CBC HEMATOCRIT [VOLUME FRACTION] OF BLOOD BY AUTOMATED COUNT 34.7 41.0 - 54.0 09/14 L Specimen Type: BLOOD No comment entered. Ordering Provider: SA JASIEL PALACIOS Report Released Date/Time: Sep 14, 2024 03:44 PM Reporting Lab: [facility] [address] Performing Lab: [facility] [address] [facility] CBC MCV [ENTITIC VOLUME] BY AUTOMATED COUNT 96.9 fL 80.0 - 100.0 09/14 Specimen Type: BLOOD No comment entered. Ordering Provider: SA JASIEL PALACIOS Report Released Date/Time: Sep 14, 2024 03:44 PM Reporting Lab: [facility] [address] Performing Lab: [facility] [address] [facility] CBC MCH [ENTITIC MASS] BY AUTOMATED COUNT 31.3 pg 27.0 - 33.0 09/14 Specimen Type: BLOOD No comment entered. Ordering Provider: SA JASIEL PALACIOS Report Released Date/Time: Sep 14, 2024 03:44 PM Reporting Lab: [facility] [address] Performing Lab: [facility] [address] [facility] CBC MCHC [MASS/VOLUM E] BY AUTOMATED COUNT 32.3 g/dL 32.0 - 37.5 09/14 Specimen Type: BLOOD No comment entered. Ordering Provider: SA JASIEL PALACIOS Report Released Date/Time: Sep 14, 2024 03:44 PM Reporting Lab: [facility] [address] Performing Lab: [facility] [address] [facility] CBC PLATELETS [#/VOLUME] IN BLOOD BY AUTOMATED COUNT 292 150 - 400 09/14 Specimen Type: BLOOD No comment entered. Ordering Provider: SA JASIEL PALACIOS Report Released Date/Time: Sep 14, 2024 03:44 PM Reporting Lab: [facility] [address] Performing Lab: [facility] [address] [facility] CBC PLATELET MEAN VOLUME [ENTITIC VOLUME] IN BLOOD BY AUTOMATED COUNT 9.7 fL 9.1 - 13.0 09/14 Specimen Type: BLOOD No comment entered. Ordering Provider: SA JASIEL PALACIOS Report Released Date/Time: Sep 14, 2024 03:44 PM Reporting Lab: [facility] [address] Performing Lab: [facility] [address] [facility] CBC ERYTHROCYTE DISTRIBUTIO N WIDTH [RATIO] BY AUTOMATED COUNT 13.5 11.5 - 14.5 09/14 Specimen Type: BLOOD No comment entered. Ordering Provider: SA JASIEL PALACIOS Report Released Date/Time: Sep 14, 2024 03:44 PM Reporting Lab: [facility] [address] Performing Lab: [facility] [address] [facility] IRON GROUP IRON [MASS/VOLUM E] IN SERUM OR PLASMA 51 ug/dL 65 - 175 09/14 L Specimen Type: SERUM No comment entered. Ordering Provider: SA JASIEL PALACIOS Report Released Date/Time: Sep 14, 2024 03:44 PM Reporting Lab: [facility] [address] Performing Lab: [facility] [address] [facility] IRON GROUP IRON BINDING CAPACITY [MASS/VOLUM E] IN SERUM OR PLASMA 421 ug/dL 250 - 425 09/14 Specimen Type: SERUM No comment entered. Ordering Provider: SA JASIEL PALACIOS Report Released Date/Time: Sep 14, 2024 03:44 PM Reporting Lab: [facility] [address] Performing Lab: [facility] [address] [facility] IRON GROUP FERRITIN [MASS/VOLUM E] IN SERUM OR PLASMA 38.5 ng/mL 21.8 - 274.7 09/14 Specimen Type: SERUM No comment entered. Ordering Provider: SA JASIEL PALACIOS Report Released Date/Time: Sep 14, 2024 03:44 PM Reporting Lab: [facility] [address] Performing Lab: [facility] [address] [facility] IRON GROUP IRON SATURATION 12 20 - 50 09/14 L Specimen Type: SERUM No comment entered. Ordering Provider: SA JASIEL PALACIOS Report Released Date/Time: Sep 14, 2024 03:44 PM Reporting Lab: [facility] [address] Performing Lab: [facility] [address] [facility] IRON GROUP TRANSFERRIN [MASS/VOLUM E] IN SERUM OR PLASMA 337 mg/dL 163 - 382 09/14 Specimen Type: SERUM No comment entered. Ordering Provider: SA JASIEL PALACIOS Report Released Date/Time: Sep 14, 2024 03:44 PM Reporting Lab: [facility] [address] Performing Lab: [facility] [address] [facility] PSA PROSTATE SPECIFIC AG [MASS/VOLUM E] IN SERUM OR PLASMA 0.01 ng/mL <4.00 - 4.00 09/14 Specimen Type: SERUM No comment entered. Ordering Provider: SA JASIEL PALACIOS Report Released Date/Time: Sep 14, 2024 03:44 PM Reporting Lab: [facility] [address] Performing Lab: [facility] [address] [facility] PT/INR(AN TICOAG) INR IN PLATELET POOR PLASMA BY COAGULATION ASSAY 1.9 0.8 - 1.1 09/14 H Specimen Type: PLASMA No comment entered. Ordering Provider: SA JASIEL PALACIOS Report Released Date/Time: Sep 14, 2024 03:44 PM Reporting Lab: [facility] [address] Performing Lab: [facility] [address] [facility] PT/INR(AN TICOAG) PROTHROMBIN TIME (PT) 22.1 s 9.4 - 12.5 09/14 H Specimen Type: PLASMA No comment entered. Ordering Provider: SA JASIEL PALACIOS Report Released Date/Time: Sep 14, 2024 03:44 PM Reporting Lab: [facility] [address] Performing Lab: [facility] [address] [facility] Vital Signs Combined list of inpatient and outpatient Vital Signs from Department of Defense and Veterans Affairs, ranging from 12 months to all on record, depending upon the facility. Vital Sign Value Date Comments Source SYSTOLIC BLOOD PRESSURE 152 12/14/2024 11:10:03 [facility] DIASTOLIC BLOOD PRESSURE 71 12/14/2024 11:10:03 [facility] PULSE OXIMETRY 95 12/14/2024 11:10:03 [facility] WEIGHT 171.8 12/14/2024 11:10:03 [facility] BMI 25 kg/m2 12/14/2024 11:10:03 [facility] PAIN 0 12/14/2024 11:10:03 [facility] HEIGHT 69 12/14/2024 11:10:03 [facility] TEMPERATURE 97.1 12/14/2024 11:10:03 [facility] PULSE 88 12/14/2024 11:10:03 [facility] RESPIRATION 18 12/14/2024 11:10:03 [facility] SYSTOLIC BLOOD PRESSURE 152 09/14/2024 14:42:54 [facility] DIASTOLIC BLOOD PRESSURE 88 09/14/2024 14:42:54 [facility] PULSE OXIMETRY 97 09/14/2024 14:42:54 [facility] WEIGHT 168 09/14/2024 14:42:54 [facility] BMI 25 kg/m2 09/14/2024 14:42:54 [facility] PAIN 0 09/14/2024 14:42:54 [facility] HEIGHT 68.5 09/14/2024 14:42:54 [facility] TEMPERATURE 97.5 09/14/2024 14:42:54 [facility] PULSE 96 09/14/2024 14:42:54 [facility] RESPIRATION 18 09/14/2024 14:42:[address] [address] SYSTOLIC BLOOD PRESSURE 195 06/15/2024 13:38:13 [facility] DIASTOLIC BLOOD PRESSURE 91 06/15/2024 13:38:13 [facility] PULSE OXIMETRY 98 06/15/2024 13:38:[address] [facility] WEIGHT 165 06/15/2024 13:38:13 [facility] BMI 25 kg/m2 06/15/2024 13:38:13 [facility] PAIN 0 06/15/2024 13:38:13 [facility] HEIGHT 68.5 06/15/2024 13:38:13 [facility] TEMPERATURE 97.2 06/15/2024 13:38:13 [facility] PULSE 90 06/15/2024 13:38:13 [facility] RESPIRATION 16 06/15/2024 13[facility]38:13 [facility] Encounters Combined list of: 1) Encounters from Department of Veterans Affairs facilities going backup to the last 18 months, not all VA inpatient encounters are included; 2) Encounters from the Department of Defense facilities going backup to 280 months. Location Location Details Encounter Type Encounter Number Reason For Visit Attending Provider ADM Date DC Date Status Disposition Source [facility] Outpatient Encounter [id number] 12/10 [place] [facility] [place] [facility] [place] [facility] [id number] 12/30 [place] [facility] [place] [facility] Outpatient [facility]counter [id number] 06/14 [place] [facility] [place] [facility] Outpatient [facility]counter [id number] 06/15 [place] [facility] [place] [facility] OFF[place] O/P [place] 60 MIN [id number] Diagnos is: ICD-10- CM 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 Karen MEDINA H 06/15 [place] [facility] [place] [facility] Outpatient [facility]counter [id number] 09/14 [place] [facility] [place] [facility] OFF[facility] O/P EST MOD 30 MIN [id number] Diagnos is: ICD-10- CM C61 Maligna nt neoplas m of prostat AHMET Miller 09/14 [facility] MTMS BY PHARM EST 15 MIN [id number] Diagnos is: ICD-10- CM Z79.01 ocean transportation intermediary (curren t) use of anticoa gulants CASSIE SCHMIDT 09/15 [facility] Outpatient Encounter [id number] 09/19 [facility] MTMS BY PHARM EST 15 MIN [id number] Diagnos is: ICD-10- CM Z79.01 ocean transportation intermediary (curren t) use of anticoa gulants BRADLEY ARAGON 09/29 [place] [facility] [place] [facility] Outpatient Encounter [id number] 10/07 [facility] [facility] [place] [facility] Outpatient Encounter [id number] 10/11 [facility] [place] [facility] Outpatient Encounter [id number] 10/19 [facility] Outpatient Encounter [id number] 10/21 [facility] SYNCH AUDIO-ONLY EST MOD 30 [id number] Diagnos is: ICD-10- CM D50.0 Iron deficie ncy anemia seconda ry to blood loss (chroni c) BENITO KRAMER 10[facility]21 [facility] [place] [facility] MTMS BY PHARM EST 15 MIN [id number] Diagnos is: ICD-10- CM Z51.81 Encount er for therape utic drug level monitor SIGRID Montesinos 10/21 [facility] OFFICE O/P NEW MOD 45 MIN [id number] Diagnos is: ICD-10- CM C61 Maligna nt neoplas m of TELMA Genao 11/07 [facility] Outpatient Encounter [id number] 11/11 [facility] Outpatient Encounter [id number] 11/16 [facility] [place] [facility] Outpatient Encounter [id number] 11/17 [facility] [place] [facility] Outpatient Encounter [id number] 11/18 [facility] MTMS BY PHARM EST 15 MIN [id number] Diagnos is: ICD-10- CM Z79.01 snf (curren t) use of anticoa gulants MARIA DOLORES GOLDSMITH 11/18 [facility] [place] [facility] MTMS BY PHARM ADDL 15 MIN [id number] Diagnos is: ICD-10- CM Z79.01 snf (curren t) use of anticoa gulants Jeny OLIVA 12/13 [facility] ELECTROCAR DIOGRAM REPORT [id number] Diagnos is: ICD-10- CM Z13.6 Encount er for screeni ng for cardiov ascular disorde rs YANDY SANTOS NZI 12/14 [facility] OFFICE O/P EST MOD 30 MIN [id number] Diagnos is: ICD-10- CM 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 CHINNADURA IJEREMY A 12/14 [facility] Outpatient Encounter [id number] 12/20 [place] [facility] [place] [facility] Outpatient Encounter [id number] [id number] 12/21 [facility] [place] [facility] Outpatient Encounter [id number] 12/22 [facility] [facility] OFFICE O/P EST HI 40 MIN [id number] Diagnos is: ICD-10- CM 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 ERETH,DIPIKA H 12/22 [facility] Outpatient Encounter [id number] BART HERZOG 12/22 [facility] [facility] SIGMOIDOSC OPY W/ABLATION [id number] [id number] Diagnos is: ICD-10- CM 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 TELMA DONATO 12/22 [facility] Outpatient Encounter [id number] 12/22 [facility] Outpatient Encounter [id number] 12/23 [facility] [place] [facility] Outpatient Encounter [id number] 12/28 [facility] [facility] [place] [facility] Outpatient Encounter [id number] 12/30 [place] [facility] [place] [facility] MTMS BY PHARM EST 15 MIN [id number] [id number] Diagnos is: ICD-10- CM Z79.01 ocean transportation intermediary (curren t) use of anticoa gulants CASSIE SCHMIDT 12/30 [place] [facility] [place] [facility] Outpatient Encounter [id number] 01/02 [facility] [facility] MTMS BY PHARM EST 15 MIN [id number] [id number] Diagnos is: ICD-10- CM Z79.01 ocean transportation intermediary (curren t) use of anticoa gulants MARIA DOLORES GOLDSMITH 01/02 [facility] [place] [facility] Outpatient Encounter [id number] [id number] 01/02 [place] [facility] [place] [facility] Outpatient Encounter [id number] [id number] 01/25 [facility] [place] [facility] Outpatient Encounter [id number] [id number] 01/25 [place] [facility] [place] [facility] MTMS BY PHARM ADDL 15 MIN [id number] Diagnos is: ICD-10- CM Z79.01 ocean transportation intermediary (curren t) use of anticoa gulants BRADLEY ARAGON 01/26 [facility] [place] [facility] Outpatient Encounter [id number] 02/09 [place] [facility] [place] [facility] Outpatient Encounter [id number] 02/10 [place] [facility] [place] [facility] MTMS BY PHARM EST 15 MIN [id number] [id number] Diagnos is: ICD-10- CM Z51.81 Encount er for therape utic drug level monitor CELI Alcantara 02/10 [facility] Social History Combined list of available smoking, tobacco, and other social history from 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 Social History Type Response Date Comment Sourc e Tobacco smoking status NHIS [facility] FORMER USER 06/14/2024 [facility] History of tobacco use VA-TOBACCO QUIT 1 5 YRS OR MORE 06/14/2024 [facility] Plan of Care List of future care activities from Department of 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 Additional future care activities may be listed in the Assessment and Plan section. Date/Time Care Activity Care Activity Detail Facili ty 03/13/2025 AMBULATORY - MEDICINE AMBULATORY - MEDICI NE [facility]
--- OUTSIDE RECORDS SUMMARY | 2025-02-18 00:18 | XMS_ITS | Clinical Summary ---
Author Organization [facility] Address [address] [place] [id number] Care Team Providers Care Shuttle Filler Name Role Phone Pcp, No Primary Care [...] on file Legal Sex Male 5:23 AM CALL BOX WIRER Gender Identity Not on file Sexual Orientation Not on file Obstetrics History Last Filed Vital Signs Vital Sign Reading Time Taken Comments Blood Pressure 121/78 07/08/2017 9:42 AM CALL BOX WIRER Pulse 96 07/08/2017 9:42 AM CALL BOX WIRER Temperature - - Respiratory Rate - - Oxygen Saturation 98% 07/08/2017 9:42 AM CALL BOX WIRER Inhaled Oxygen Concentration - - Weight 75.3 kg (166 lb) 07/08/2017 9:42 AM CALL BOX WIRER Height - - Body Mass Index - [...] patient's age to complete this topic Insurance [employer] ONLY Care Teams Shuttle Filler Relationship Specialty Start Date End Date Pcp, No . PCP - General 07/08/17
[2025-02-20 02:24] LABS: Testosterone, Adult Male 265 ng/dL (300-720)
== END 2025-02-17 13:11 | disposition home or self-care (01) ==
LOC: NPINS 13:12
PROVIDERS: Visit Provider Physician Assistant
DX: C61 Malignant neoplasm of prostate (principal)
CPT/HCPCS: 84403

== ENCOUNTER 2025-02-28 13:31 | Outpatient (CLI) | payer MEDICARE, OTHER, SELFPAY ==
[2025-02-28 13:57] LABS: Hematocrit 40.6 % (37.0-53.0); Hemoglobin* 12.8 gm/dL (13.5-17.5); Immature Granulocytes Abs Auto 0.01 K/uL (0.00-0.30); Immature Granulocytes Pct Auto 0.2 %; Mean Corpuscular HGB Conc 32 gm/dL (32-36); Mean Corpuscular Hemoglobin 29 pg (26-34); Mean Corpuscular Volume 93 fL (80-100); RDW Coefficient of Variation % 18.4 % (11.5-15.5); Red Blood Count 4.39 m/uL (4.30-5.90); White Blood Count* 5.41 K/uL (4.50-11.00)
[2025-02-28 14:01] LABS: Lymphocytes Absolute Auto 1.00 K/uL (0.90-2.90); Slide Review Reflex No
[2025-02-28 14:19] LABS: INR 2.15 (0.91-1.10); Prothrombin Time 25.1 Seconds
== END 2025-02-28 13:32 | disposition home or self-care (01) ==
PROVIDERS: Visit Provider Internal Medicine Hematology & Oncology
DX: Z86.718 Personal history of other venous thrombosis and embolism (principal)
CPT/HCPCS: 36415; 85025; 85610

== ENCOUNTER 2025-04-03 14:33 | Outpatient (CLI) | payer MEDICARE, OTHER, SELFPAY ==
[2025-04-03 15:25] LABS: Hematocrit 39.4 % (37.0-53.0); Hemoglobin* 13.1 gm/dL (13.5-17.5); Immature Granulocytes Abs Auto 0.04 K/uL (0.00-0.30); Immature Granulocytes Pct Auto 0.7 %; Lymphocytes Absolute Auto 1.00 K/uL (0.90-2.90); Mean Corpuscular HGB Conc 33 gm/dL (32-36); Mean Corpuscular Hemoglobin 31 pg (26-34); Mean Corpuscular Volume 92 fL (80-100); RDW Coefficient of Variation % 15.1 % (11.5-15.5); Red Blood Count 4.30 m/uL (4.30-5.90); Slide Review Reflex No; White Blood Count* 5.96 K/uL (4.50-11.00)
[2025-04-03 15:57] LABS: INR 2.47 (0.91-1.10); Prothrombin Time 27.9 Seconds
== END 2025-04-03 14:34 | disposition home or self-care (01) ==
LOC: NPINS 14:35
PROVIDERS: Visit Provider Internal Medicine Hematology & Oncology
DX: I26.99 Other pulmonary embolism without acute cor pulmonale (principal); Z79.01 Long term (current) use of anticoagulants
CPT/HCPCS: 85025; 85610

== ENCOUNTER 2025-05-03 11:32 | Outpatient (CLI) | payer MEDICARE, OTHER, SELFPAY ==
[2025-05-03 12:16] LABS: INR 1.61 (0.91-1.10); Prothrombin Time 20.2 Seconds
== END 2025-05-03 11:33 | disposition home or self-care (01) ==
LOC: NPINS 11:33
PROVIDERS: Visit Provider Internal Medicine Hematology & Oncology
DX: Z79.01 Long term (current) use of anticoagulants (principal)
CPT/HCPCS: 85610

== ENCOUNTER 2025-05-18 13:15 | Outpatient (CLI) | payer MEDICARE, OTHER, SELFPAY ==
[2025-05-18 14:07] LABS: INR 1.60 (0.91-1.10); Prothrombin Time 20.0 Seconds
== END 2025-05-18 13:16 | disposition home or self-care (01) ==
LOC: NPINS 13:17
PROVIDERS: Visit Provider Internal Medicine Hematology & Oncology
DX: I26.99 Other pulmonary embolism without acute cor pulmonale (principal)
CPT/HCPCS: 85610

== ENCOUNTER 2025-05-31 15:53 | Outpatient (CLI) | payer MEDICARE, OTHER, SELFPAY ==
[2025-05-31 17:42] LABS: INR 1.92 (0.91-1.10); Prothrombin Time 23.1 Seconds
== END 2025-05-31 15:54 | disposition home or self-care (01) ==
LOC: NPINS 15:54
PROVIDERS: Visit Provider Internal Medicine Hematology & Oncology
DX: I26.99 Other pulmonary embolism without acute cor pulmonale (principal)
CPT/HCPCS: 85610

== ENCOUNTER 2025-06-14 11:25 | Outpatient (CLI) | payer MEDICARE, OTHER, SELFPAY ==
[2025-06-14 13:03] LABS: INR 2.10 (0.91-1.10); Prothrombin Time 24.7 Seconds
== END 2025-06-14 11:26 | disposition home or self-care (01) ==
LOC: NPINS 11:27
PROVIDERS: Visit Provider Internal Medicine Hematology & Oncology
DX: I26.99 Other pulmonary embolism without acute cor pulmonale (principal)
CPT/HCPCS: 85610

== ENCOUNTER 2025-07-18 10:35 | Outpatient (CLI) | payer MEDICARE, OTHER, SELFPAY ==
[2025-07-18 12:15] LABS: INR 2.59 (0.91-1.10); Prothrombin Time 29.0 Seconds
== END 2025-07-18 10:36 | disposition home or self-care (01) ==
LOC: NPINS 07-27 12:11
PROVIDERS: Visit Provider Internal Medicine Hematology & Oncology
DX: I26.99 Other pulmonary embolism without acute cor pulmonale (principal)
CPT/HCPCS: 85610

== ENCOUNTER 2025-08-07 14:50 | Outpatient (CLI) | payer MEDICARE, OTHER, SELFPAY ==
[2025-08-07 19:20] LABS: PSA Diagnostic* < 0.06 ng/mL (0.10-4.00)
[2025-08-09 20:11] LABS: Testosterone, Adult Male 162 ng/dL (300-720)
== END 2025-08-07 14:51 | disposition home or self-care (01) ==
LOC: LAB 15:06
PROVIDERS: Visit Provider Physician Assistant
DX: C61 Malignant neoplasm of prostate (principal)
CPT/HCPCS: 36415; 84153; 84403

== ENCOUNTER 2025-08-21 10:05 | Outpatient (CLI) | payer MEDICARE, OTHER, SELFPAY ==
[2025-08-21 10:49] LABS: INR 2.52 (0.91-1.10); Prothrombin Time 28.3 Seconds
== END 2025-08-21 10:06 | disposition home or self-care (01) ==
LOC: NPINS 10:06
PROVIDERS: Visit Provider Internal Medicine Hematology & Oncology
DX: I26.99 Other pulmonary embolism without acute cor pulmonale (principal)
CPT/HCPCS: 85610